=== PATIENT | male | born 1940 | race Caucasian/White ===

== ENCOUNTER 2023-07-10 12:22 | Inpatient (IN) ==
--- NOTE | 2023-07-10 12:38 | ED.PDOC ---
General ED Provider: Dr. GÓMEZ VALDEZ MD Chief Complaint: Nausea/Vomiting Stated Complaint: nausea and vomiting Time Seen by Provider: 07/10/23 12:31 Information Source: Patient Nursing and Triage Documentation Reviewed and Agree: Yes GI Complaint Exam Vomiting/Diarrhea Complaint/Exam Onset/Duration: this morning Symptoms Are: Still present Initial Severity: Moderate Current Severity: Moderate Character of Vomiting: Reports Bilious Aggravating: Reports Food Alleviating: Reports Medications Associated Signs and Symptoms: Denies Fever or Abdominal pain Review of Systems Review Of Systems Constitutional: Reports No symptoms All Other Systems: Reviewed and Negative [facility] Medical History 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 without an etelvina pectoris (ICD-10) Cerebral infarction I63.9 - Cerebral infarction, unspecified (ICD-10) Cognitive communication deficit R41.841 - Cognitive communication deficit (ICD-10) COPD (chronic obstructive pulmonary disease) J44.9 - Chronic obstructive pulmonary disease, unspecified (ICD-10) Dementia F03.90 - Unspecified dementia, unspecified severity, without behavioral disturbance, psychotic disturbance, mood disturbance, and anxiety (ICD-10) Depression F32.A - Depression, unspecified (ICD-10) GERD without esophagitis K21.9 - Gastro-esophageal reflux disease without esophagitis (ICD-10) Hyperlipidemia E78.5 - Hyperlipidemia, unspecified (ICD-10) Hypertension I10 - Essential (primary) hypertension (ICD-10) Personal history of other venous thrombosis and embolism Z86.718 - Personal history of other venous thrombosis and embolism (ICD-10) TIA (transient ischemic attack) G45.9 - Transient cerebral ischemic attack, unspecified (ICD-10) Type 2 diabetes mellitus E11.9 - Type 2 diabetes mellitus without complications (ICD-10) Vertigo R42 - Dizziness and giddiness (ICD-10) Wedge compression fracture of t11-T12 vertebra, subsequent encounter for fracture with routine healing S22.080D - Wedge compression fracture of T11-T12 vertebra, subsequent encounter for fracture with routine healing (ICD-10) Social History (Updated 07/10/23 @ 18:17 by SHARIFA TIPTON RN) Alcohol intake: unknown detention: Yes ([place]) Physical Exam Physical Exam Appearance: Reports Well-appearing Ill-appearing: None Pain Distress: None Eyes: Reports ROSAS ENT: Reports Ears normal and Nose normal Neck: Supple Respiratory: Reports Airway patent, Breath sounds clear and Breath sounds equal Cardiovascular: Reports RRR, Pulses normal, No rub and No murmur GI/: Reports Soft, No masses, Bowel sounds normal and Tender (mild epigastric) Musculoskeletal: Reports Normal strength and ROM intact Skin: Reports Warm and Normal color Neurological: Reports Sensation intact and Motor intact Psychiatric: Reports Affect appropriate Interpretation EKG Interpretation EKG Interpretation By: ED Physician Time of EKG #1: 12:43 Rate: Tachy Rhythm: Sinus Ectopy: None Talent: NL ST Segment: Normal Interpretation: possible old anterior infarction, no acute ST changes Critical Care Note Critical Care Note Total Critical Care Time (mins): 0 Course Course 07/10/23 12:50 07/10/23 12:50 Orders, Labs, Meds: Lab Review 07/10/23 07/10/23 07/10/23 12:50 14:12 14:30 WBC 13.97 H RBC 5.14 Hgb 15.2 Hct 46.2 MCV 89.9 MCH 29.6 MCHC 32.9 RDW Coeff of Meryl 12.1 Plt Count 171 Immature Gran % (Auto) 1.0 Neut % (Auto) 88.1 H Lymph % (Auto) 4.7 L [place] % (Auto) 6.0 Eos % (Auto) 0.1 Baso % (Auto) 0.1 Neut # (Auto) 12.3 H Lymph # (Auto) 0.7 [place] # (Auto) 0.8 Eos # (Auto) 0.0 Baso # (Auto) 0.0 Immature Gran # (Auto) 0.1 Puncture Site Base Excess O2 Saturation ABG pH ABG pCO2 ABG pO2 ABG HCO3 ABG Total CO2 Antony Test Hemoglobin Oxyhemoglobin Carboxyhemoglobin Total Hemoglobin Sodium 132.9 L Potassium 4.53 Chloride 98.8 Carbon Dioxide 25.8 Anion Gap 12.83 BUN 12.9 Creatinine 1.09 Estimated GFR (MDRD) 65.00 BUN/Creatinine Ratio 11.83 Glucose 173.3 H Lactic Acid 2.04 Calcium 8.15 L Total Bilirubin 2.22 H AST 140.6 H ALT 162.5 H Alkaline Phosphatase 126.0 H Troponin I 0.016 Total Protein 6.40 Albumin 3.35 L Globulin 3.05 Albumin/Globulin Ratio 1.09 Lipase 166.4 Urine Color Dark yellow Urine Clarity Clear Urine pH 5.5 Ur Specific [place] >=1.030 Urine Protein 2+ H Urine Glucose (UA) Negative Urine Ketones 1+ H Urine Blood Trace-intact H Urine Nitrite Negative Urine Bilirubin 1+ H Urine Urobilinogen 2.0 H Ur Leukocyte Esterase Negative Urine Microscopic RBC 20-30 Ur Squamous Epith Cells Not Reportable Hyaline Casts 30-50 Urine Mucus 3+ SARS CoV-2 RNA Rapid TY 07/10/23 07/10/23 14:40 14:50 WBC RBC Hgb Hct MCV MCH MCHC RDW Coeff of Meryl Plt Count Immature Gran % (Auto) Neut % (Auto) Lymph % (Auto) [place] % (Auto) Eos % (Auto) Baso % (Auto) Neut # (Auto) Lymph # (Auto) [place] # (Auto) Eos # (Auto) Baso # (Auto) Immature Gran # (Auto) Puncture Site [place] Base Excess -3.7 L O2 Saturation 93.3 L ABG pH 7.43 ABG pCO2 31.0 L ABG pO2 66.0 L ABG HCO3 20.6 L ABG Total CO2 21.6 Antony Test Pos Hemoglobin 1.2 Oxyhemoglobin 91.6 L Carboxyhemoglobin 2.0 H Total Hemoglobin 16.2 Sodium Potassium Chloride Carbon Dioxide Anion Gap BUN Creatinine Estimated GFR (MDRD) BUN/Creatinine Ratio Glucose Lactic Acid Calcium Total Bilirubin AST ALT Alkaline Phosphatase Troponin I Total Protein Albumin Globulin Albumin/Globulin Ratio Lipase Urine Color Urine Clarity Urine pH Ur Specific [place] Urine Protein Urine Glucose (UA) Urine Ketones Urine Blood Urine Nitrite Urine Bilirubin Urine Urobilinogen Ur Leukocyte Esterase Urine Microscopic RBC Ur Squamous Epith Cells Hyaline Casts Urine Mucus SARS CoV-2 RNA Rapid TY Negative Orders Category Date Time Status ADMIT PATIENT INPATIENT .TO [facility] (MONITORED BED) ADMISSION 07/10/23 14:48 Active ABG DRAW REQUEST Stat CARDIO 07/10/23 14:47 Completed EKG-(ED ONLY) Stat CARDIO 07/10/23 12:32 Completed IV ACCESS ONCE CARE 07/10/23 12:32 Active NPO REMINDER: IMAGING ONCE CARE 07/10/23 14:02 Completed TELEMETRY MONITORING TELE CARE 07/10/23 14:49 Active Monitor [ED CARROTER APPLIED] .ONCE EMERGENCY 07/10/23 12:32 Active ABG COOX Stat LAB 07/10/23 14:50 Completed BLOOD CULTURE Stat LAB 07/10/23 14:22 Received CBC W/ AUTO DIFF Stat LAB 07/10/23 12:50 Completed CMP [COMPREHENSIVE METABOLIC PANEL] Stat LAB 07/10/23 12:50 Completed COVID [SARS COV-2 RNA RAPID TY] Stat LAB 07/10/23 14:40 Completed LACTIC ACID Stat LAB 07/10/23 14:12 Completed LIPASE Stat LAB 07/10/23 12:50 Completed TROPONIN I Stat LAB 07/10/23 12:50 Completed URINALYSIS C & S IF INDICATED Stat LAB 07/10/23 14:30 Completed Piperacillin Sodium/Tazobactam [Zosyn 3.375 gm] 3.375 Meds 07/10/23 14:45 Discontinued gm 0.9 % Sodium Chloride [Sodium Chloride 100Ml] 100 ml IV ONCE Vancomycin/Water For Inj (Peg) [Vancomycin 1 Gram/200 Meds 07/10/23 14:46 Discontinued ml Premix] 1 gm in [address] ABDOMEN/PELVIS WO CONTRAST Stat RADS 07/10/23 12:32 Completed CXR [CHEST, 1V AP ONLY] Stat RADS 07/10/23 14:00 Completed ULTRASOUND ABDOMEN, RT. UPPER QUAD [U/S ABDOMEN RT RADS 07/10/23 14:02 Completed UPPER QUAD] Stat Medications Generic Name Dose Route Start Last Admin Trade Name Freq PRN Reason Stop Dose Admin Amlodipine Besylate 5 mg 07/11/23 09:00 Amlodipine Besylate 5 Mg Tablet PO DAILY [facility] Aspirin 81 mg 07/11/23 07:30 Aspirin 81 Mg Tablet. PO 0730 [facility] Bisacodyl 5 mg 07/10/23 16:46 Bisacodyl 5 Mg Tablet. PO DAILY PRN Constipation Citalopram Hydrobromide 20 mg 07/10/23 21:00 Citalopram Hydrobromide 20 Mg Tablet PO BEDTIME [facility] Enoxaparin Sodium 30 mg 07/11/23 09:00 Enoxaparin Sodium 30 Mg/0.3 Ml Syr SUBCUT DAILY [facility] Famotidine 20 mg 07/10/23 17:00 07/10/23 17:48 Famotidine 20 Mg Tablet PO 20 mg 0600,1700 [facility] Administration Sodium Chloride 1,000 mls @ 75 mls/hr 07/10/23 16:00 07/10/23 17:50 Sodium Chloride IV 75 mls/hr .[id number] [facility] Administration Levofloxacin/Dextrose 750 mg in 150 mls @ 100 mls/hr 07/11/23 09:00 Levaquin 750 Mg/150 Ml D5w IV 07/14/23 08:59 DAILY [facility] Lisinopril 20 mg 07/11/23 09:00 Lisinopril 10 Mg Tablet PO DAILY [facility] Methocarbamol 750 mg 07/10/23 16:47 Methocarbamol 500 Mg Tablet PO Q8H PRN Spasms Metoclopramide HCl 5 mg 07/10/23 16:20 Metoclopramide Hcl 10 Mg/2 Ml IVP Q6H PRN Nausea / Vomiting Ondansetron HCl 4 mg 07/10/23 16:20 Ondansetron Hcl/Pf 4 Mg/2 Ml Sdv IVP Q6H PRN Nausea / Vomiting Discontinued Medications Generic Name Dose Route Start Last Admin Trade Name Freq PRN Reason Stop Dose Admin Hydralazine HCl 10 mg 07/10/23 16:41 07/10/23 17:48 Hydralazine Hcl 20 Mg/Ml Sdv IVP 07/10/23 16:42 10 mg ONCE ONE Administration Piperacillin Sod/Tazobactam 100 mls @ 200 mls/hr 07/10/23 14:45 07/10/23 15:03 Sod 3.375 gm/ Sodium Chloride IV 07/10/23 15:14 200 mls/hr ONCE ONE Administration VANCOMYCIN/WATER FOR INJ (PEG) 1 gm in 200 mls @ 200 mls/hr 07/10/23 14:46 07/10/23 15:24 Vancomycin 1 Gram/200 Ml Premix IV 07/10/23 15:45 200 mls/hr ONCE ONE Administration Vital Signs: Temp Pulse Resp BP Pulse Ox 07/10/23 12:23 98.1 F 95 17 118/66 96 82 years old male with a past medical history of hypertension, anxiety, vertebral fracture, dyslipidemia [facility]. Patient has been having nausea and vomiting since this morning who who was sent for evaluation he was given Zofran by the paramedics on route which improved his vomiting. CT scan of the abdomen pelvis did not show any acute findings in the abdomen status postcholecystectomy but showed bilateral bibasilar pneumonia more on the right side patient is wearing a breast for the vertebral fracture which be factor in his pneumonia. Patient has leukocytosis WBC 13.9 with a left shift lactic acid was ordered blood cultures obtained patient was ordered vancomycin and Zosyn IV. Spoke with Dr. Sanchez patient's primary care physician and discussed the case with him and he agrees with admitting the patient for IV antibiotics. I spoke with hospitalist Jadiel Gamboa and she agrees with admitting the patient to her services. Discharge Plan Discharge Patient Disposition: ADMITTED INPATIENT Discharge Problem: Vomiting, Nausea, Pneumonia Did you review [place] [employer] for ALL controlled substances?: Not Applicable ED Provider: GÓMEZ VALDEZ Condition: Stable Physician Progress Note: []
[2023-07-10 12:54] LABS: BASOPHILS % (AUTO) 0.1 % (0.0-3.0); EOSINOPHILS % (AUTO) 0.1 % (0.0-7.0); HEMATOCRIT 46.2 % (42.0-52.0); HEMOGLOBIN 15.2 g/dl (14.0-18.0); IMMATURE GRANULOCYTE # (AUTO) 0.1 (0.0-1.0); LYMPHOCYTES # (AUTO) 0.7 K/uL (0.60-3.4); LYMPHOCYTES % (AUTO) 4.7 (10.0-50.0); MEAN CORPUSCULAR HEMOGLOBIN 29.6 pg (27.0-31.0); MEAN CORPUSCULAR HGB CONC 32.9 (31.8-35.4); MEAN CORPUSCULAR VOLUME 89.9 fl (80.0-94.0); MONOCYTES # (AUTO) 0.8 K/uL (0.4-2.0); NEUTROPHILS # (AUTO) 12.3 K/ul (2.0-6.9); NEUTROPHILS % (AUTO) 88.1 % (42.2-75.2); PLATELET COUNT 171 10^3/uL (140-440); RDW COEFFICIENT OF VARIATION 12.1 % (11.6-14.8); RED BLOOD COUNT 5.14 10^6/ul (4.70-6.10); WHITE BLOOD COUNT 13.97 K/ul (4.2-10.2)
[2023-07-10 13:06] LABS: ALANINE AMINOTRANSFERASE 162.5 U/L (0-50); ALBUMIN 3.35 g/dL (3.5-5.0); ASPARTATE AMINO TRANSFERASE 140.6 U/L (17-59); BILIRUBIN,TOTAL 2.22 mg/dL (0.2-1.3); BLOOD UREA NITROGEN 12.9 mg/dL (9-20); CALCIUM 8.15 mg/dL (8.4-10.2); CARBON DIOXIDE 25.8 mmol/L (22-30.0); CHLORIDE 98.8 mmol/L (98-107); CREATININE 1.09 mg/dL (0.60-1.10); GLUCOSE 173.3 mg/dL (74-106); LIPASE 166.4 U/L (23-300); POTASSIUM 4.53 mmol/L (3.5-5.1); SODIUM 132.9 mmol/L (134.5-145); TOTAL PROTEIN 6.4 g/dL (6.3-8.2)
[2023-07-10 13:18] LABS: TROPONIN I 0.016 ng/ml (0.0000-0.120)
--- NOTE | 2023-07-10 13:58 | CT ---
EXAM: CT ABDOMEN WITHOUT CONTRAST. CT PELVIS WITHOUT CONTRAST. HISTORY: Abdominal pain, nausea and vomiting. COMPARISON: None. TECHNIQUE: Multiple axial images of the abdomen and pelvis were obtained without intravenous contras t. Images were reformatted in the sagittal and coronal plane. FINDINGS: Please note that evaluation of the abdominal and pelvic structures is limited due to lack of intravenous contrast. Bronchial thickening and small nodular densities noted in the right middle and lower lobes. There is some nodular consolidation within the medial right lower lobe. Mild subpleural nodular consolidatio n posterior left lower lobe as well. Degenerative changes present throughout the spine. Mild compression deformity T12 vertebral body wit h oblique fracture line on sagittal image 65. Sclerosis on both sides of the fracture line. No retr opulsion. Mild paravertebral edema present. No visible epidural hematoma. Gallbladder absent. Liver, pancreas, spleen are normal. A 1.8 cm right adrenal nodule with macrosco pic fat density and internal Hounsfield unit measurement of -3 noted on axial image 39. There is flu id density thickening of the left adrenal gland example axial image 47 There are multiple fluid density masses in both kidneys measuring up to 4.6 cm on the left and 2.6 cm on the right. No calcified renal stones or hydronephrosis detected. Small hiatal hernia present. There is no bowel obstruction or acute inflammation. There has been pr ior appendectomy. Staple line at the rectosigmoid junction. Mild diverticulosis noted. Bladder normal. Prostate mildly enlarged with some mass effect on the base of no bladder no free flu id or free air detected. Atherosclerotic calcifications present without aneurysm. IMPRESSION: 1. Bibasilar pneumonia, greater on the right. Follow-up in 3 months recommended for reassessment. 2. Subacute appearing T12 compression fracture. No retropulsion. Correlate with MRI if further rey luation is needed. 3. Small hiatal hernia. 4. Previous rectosigmoid surgery. Mild diverticulosis. 5. Bilateral renal cysts. 6. Atherosclerosis. 7. Prostatic enlargement. 8. Benign adrenal adenomas. All CT scans are performed using dose optimization techniques as appropriate to the performed exam an d include at least one of the following: Automated exposure control, adjustment of the mA and/or kV according t o size, and the use of iterative reconstruction technique.
--- NOTE | 2023-07-10 14:28 | DI ---
EXAM: CHEST RADIOGRAPH (1 VIEW) TECHNIQUE: Frontal Chest Radiograph. HISTORY: Pneumonia COMPARISON: Correlation with CT abdomen pelvis from earlier the same day. FINDINGS: Lines, Tubes, Devices: None Lungs and Pleura: Subtle hazy densities in the lower lungs. The upper lungs are grossly clear. No p leural effusion or pneumothorax. Cardiac silhouette: Normal. Bones: No acute abnormality. IMPRESSION: Subtle hazy densities in the lower lungs. The upper lungs are clear.
[2023-07-10 14:43] LABS: BILIRUBIN,URINE 1+ (NEGATIVE); CLARITY,URINE Clear (CLEAR); GLUCOSE, URINE (UA) Negative (NEGATIVE); KETONES,URINE 1+ (NEGATIVE); LEUKOCYTE ESTERASE ,URINE Negative (NEGATIVE); NITRITE,URINE Negative (NEGATIVE); PH,URINE 5.5 (5-9); PROTEIN,URINE 2+ (NEGATIVE); URINE, BLOOD Trace-intact (NEGATIVE)
[2023-07-10] MEDS ORDERED: ZOSYN 3.375 GM 3.375 GM in SODIUM CHLORIDE 100ML 100 ML IV ONE (14:45)
[2023-07-10] MEDS ORDERED: VANCOMYCIN 1 GRAM/200 ML PREMIX 1 GM/200 ML BAG IV ONE (14:46)
[2023-07-10 14:54] LABS: COLOR,URINE DARK YELLOW (YELLOW)
[2023-07-10 14:56] LABS: HYALINE CASTS, URINE 30-50 (NOT PRESENT); URINE RBC, MICROSCOPIC 20-30 (0-2)
[2023-07-10 14:57] LABS: MUCUS,URINE 3+ (NOT PRESENT)
[2023-07-10 15:01] LABS: SARS COV-2 RNA RAPID NAAT NEGATIVE (NEGATIVE)
[2023-07-10 15:19] LABS: ABG O2 HGB 91.6 % (95-100); ABG PH 7.43 (7.35-7.45); BEecf -3.7 (-2.0-3.0); HCO3 20.6 (21-28); MetHb 1.2 (0-1.5); TCO2 21.6 (19-24); sO2 93.3 % (94-98); tHb 16.2 g/dl (11.7-17.4)
--- NOTE | 2023-07-10 15:35 | US ---
EXAM: ULTRASOUND OF THE RIGHT UPPER QUADRANT (LIMITED ABDOMEN) HISTORY: Transaminitis. TECHNIQUE: Sonography of the right upper quadrant was performed. Color Doppler imaging of the portal vein was performed. Images were obtained and stored in a permanent archive. COMPARISON: CT 07/10/2023. FINDINGS: Pancreas: Obscured by overlying structures. Liver: The liver is poorly visualized with significant areas obscured by overlying structures. Mild parenchymal heterogeneity is noted. No focal lesion. - Main portal vein: Normal hepatopetal flow. Biliary: Previous cholecystectomy. No biliary ductal dilatation. -Common bile duct measures 3.3 mm. Right Kidney: No mass, calculus, or hydronephrosis. Other: No ascites. IMPRESSION: Previous cholecystectomy without biliary ductal dilatation. The liver is poorly visualized and partially obscured due to overlying structures. Mild parenchymal heterogeneity without focal lesion. The pancreas is also obscured and not evaluated.
[2023-07-10] MEDS ORDERED: ZOFRAN 4 MG/2 ML ONE (16:12)
[2023-07-10] MEDS ORDERED: REGLAN IVP PRN (16:20)
[2023-07-10] MEDS ORDERED: ZOFRAN 4 MG/2 ML IVP PRN (16:20)
--- NOTE | 2023-07-10 16:27 | PCM ---
Date of Service Date Seen by Provider: 07/10/23 Time Seen by Provider: 16:15 Admit Day/Time Admission Date: 07/10/23 Admission Time: 16:10 Reason for Admission Chief Complaint: PNEUMONIA Hospital Provider Hospital Provider: MARILYN SMITH, [facility] [place] Physician Primary Care Physician: ASHLEY SANCHEZ MD History of Present Illness History of Present Illness: 82 yo male presented to the ER from local [facility] with nausea and vomiting that started today. He was given zofran by the ambulance crew and has not vomited since. Work-up revealed bilateral pneumonia. He was then admitted to the medical floor. Patient has pmh of dementia and is unable to provide ROS and HPI Case Discussed With Case Discussed With: Patient's case was discussed with the ER Physicians, Dr. Delgado. 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 (ICD-10) Cerebral infarction I63.9 - Cerebral infarction, unspecified (ICD-10) Cognitive communication deficit R41.841 - Cognitive communication deficit (ICD-10) COPD (chronic obstructive pulmonary disease) J44.9 - Chronic obstructive pulmonary disease, unspecified (ICD-10) Dementia F03.90 - Unspecified dementia, unspecified severity, without behavioral disturbance, psychotic disturbance, mood disturbance, and anxiety (ICD-10) Depression F32.A - Depression, unspecified (ICD-10) GERD without esophagitis K21.9 - Gastro-esophageal reflux disease without esophagitis (ICD-10) Hyperlipidemia E78.5 - Hyperlipidemia, unspecified (ICD-10) Hypertension I10 - Essential (primary) hypertension (ICD-10) Personal history of other venous thrombosis and embolism Z86.718 - Personal history of other venous thrombosis and embolism (ICD-10) TIA (transient ischemic attack) G45.9 - Transient cerebral ischemic attack, unspecified (ICD-10) Type 2 diabetes mellitus E11.9 - Type 2 diabetes mellitus without complications (ICD-10) Vertigo R42 - Dizziness and giddiness (ICD-10) Wedge compression fracture of t11-T12 vertebra, subsequent encounter for fracture with routine healing S22.080D - Wedge compression fracture of T11-T12 vertebra, subsequent encounter for fracture with routine healing (ICD-10) Allergies Allergies Allergy/AdvReac Type Severity Reaction Status Date / Time morphine AdvReac Verified 07/10/23 12:30 Current Medications Home Medications amlodipine 5 mg tablet 5 mg PO ONCE 07/10/23 [History Confirmed 07/10/23 Last Taken Unknown] aspirin 81 mg tablet,delayed release (Adult Aspirin Regimen) 81 mg PO DAILY 07/10/23 [History Confirmed 07/10/23 Last Taken Unknown] bisacodyl 5 mg tablet 5 mg PO DAILY 07/10/23 [History Confirmed 07/10/23 Last Taken Unknown] citalopram 20 mg tablet 20 mg PO ONCE 07/10/23 [History Confirmed 07/10/23 Last Taken Unknown] famotidine 20 mg tablet 20 mg PO BID 07/10/23 [History Confirmed 07/10/23 Last Taken Unknown] lisinopril 20 mg tablet 20 mg PO ONCE 07/10/23 [History Confirmed 07/10/23 Last Taken Unknown] methocarbamol 750 mg tablet 750 mg PO Q8H 07/10/23 [History Confirmed 07/10/23 Last Taken Unknown] rosuvastatin 10 mg tablet 10 mg PO ONCE 07/10/23 [History Confirmed 07/10/23 Last Taken Unknown] Home Amlodipine Besylate (Amlodipine Besylate 5 Mg Tablet) 5 mg PO DAILY PORFIRIO Aspirin (Aspirin 81 Mg Tablet.) 81 mg PO 0730 PORFIRIO Bisacodyl (Bisacodyl 5 Mg Tablet.) 5 mg PO DAILY PRN PRN Reason: Constipation Citalopram Hydrobromide (Citalopram Hydrobromide 20 Mg Tablet) 20 mg PO BEDTIME PORFIRIO Enoxaparin Sodium (Enoxaparin Sodium 30 Mg/0.3 Ml Syr) 30 mg SUBCUT DAILY PORFIRIO Famotidine (Famotidine 20 Mg Tablet) 20 mg PO 0600,1700 PORFIRIO Sodium Chloride (Sodium Chloride) 1,000 mls @ 75 mls/hr IV .[id number] PORFIRIO Levofloxacin/Dextrose (Levaquin 750 Mg/150 Ml D5w) 750 mg in 150 mls @ 100 mls/hr IV DAILY PORFIRIO Stop: 07/14/23 08:59 Lisinopril (Lisinopril 10 Mg Tablet) 20 mg PO DAILY PORFIRIO Methocarbamol (Methocarbamol 500 Mg Tablet) 750 mg PO Q8H PRN PRN Reason: Spasms Metoclopramide HCl (Metoclopramide Hcl 10 Mg/2 Ml) 5 mg IVP Q6H PRN PRN Reason: Nausea / Vomiting Ondansetron HCl (Ondansetron Hcl/Pf 4 Mg/2 Ml Sdv) 4 mg IVP Q6H PRN PRN Reason: Nausea / Vomiting Discontinued Medications Hydralazine HCl (Hydralazine Hcl 20 Mg/Ml Sdv) 10 mg IVP ONCE ONE Stop: 07/10/23 16:42 Piperacillin Sod/Tazobactam (Sod 3.375 gm/ Sodium Chloride) 100 mls @ 200 mls/hr IV ONCE ONE Stop: 07/10/23 15:14 Last Admin: 07/10/23 15:03 Dose: 200 mls/hr VANCOMYCIN/WATER FOR INJ (PEG) (Vancomycin 1 Gram/200 Ml Premix) 1 gm in 200 mls @ 200 mls/hr IV ONCE ONE Stop: 07/10/23 15:45 Last Admin: 07/10/23 15:24 Dose: 200 mls/hr Physical examination Most Recent Vital Signs: Most Recent Vital Signs Temperature 98.1 F 07/10/23 12:23 Temperature Source Infrared 07/10/23 12:23 Pulse Rate 95 07/10/23 12:23 Respiratory Rate 17 07/10/23 12:23 Blood Pressure 118/66 07/10/23 12:23 O2 Sat by Pulse Oximetry 96 07/10/23 12:23 Height 6 ft 07/10/23 12:23 Weight 187 lb 13.341 oz 07/10/23 12:23 Appearance: Positive No Apparent Distress and Ill-Appearing Skin: Positive Warm and Other (healing skin tear to left elbow, no erythema swelling or discharge; dressing on head - erythematous where tape was present, scabbed over 1mm area to center of scalp, healing, no drainage or erythema surrounding) HEENT: Positive Normocephalic, Atraumatic and PERRLA Neck: Positive Midline Trachea Chest/Lungs: Positive Symmetrical With Equal Breath Sounds, Good Air Movement all 4 Lung Schuler and Other (diminished, course ) Heart: Positive RRR, Pulses Normal and Murmur GI/: Positive Soft, Nontender, Bowel Sounds Normal, No Distention and No Organomegaly Musculoskeletal: Positive Not Examined Extremities: Positive Edema (+1-2 to RLE) Neurological: Positive Sensation Intact, Motor intact, Alert and Disorinted Labs This Visit Labs This Visit: Labs This Visit 07/10/23 07/10/23 07/10/23 12:50 14:12 14:30 WBC 13.97 H RBC 5.14 Hgb 15.2 Hct 46.2 MCV 89.9 MCH 29.6 MCHC 32.9 RDW Coeff of Meryl 12.1 Plt Count 171 Immature Gran % (Auto) 1.0 Neut % (Auto) 88.1 H Lymph % (Auto) 4.7 L [place] % (Auto) 6.0 Eos % (Auto) 0.1 Baso % (Auto) 0.1 Neut # (Auto) 12.3 H Lymph # (Auto) 0.7 [place] # (Auto) 0.8 Eos # (Auto) 0.0 Baso # (Auto) 0.0 Immature Gran # (Auto) 0.1 Puncture Site Base Excess O2 Saturation ABG pH ABG pCO2 ABG pO2 ABG HCO3 ABG Total CO2 Antony Test Hemoglobin Oxyhemoglobin Carboxyhemoglobin Total Hemoglobin Sodium 132.9 L Potassium 4.53 Chloride 98.8 Carbon Dioxide 25.8 Anion Gap 12.83 BUN 12.9 Creatinine 1.09 Estimated GFR (MDRD) 65.00 BUN/Creatinine Ratio 11.83 Glucose 173.3 H Lactic Acid 2.04 Calcium 8.15 L Total Bilirubin 2.22 H AST 140.6 H ALT 162.5 H Alkaline Phosphatase 126.0 H Troponin I 0.016 Total Protein 6.40 Albumin 3.35 L Globulin 3.05 Albumin/Globulin Ratio 1.09 Lipase 166.4 Urine Color Dark yellow Urine Clarity Clear Urine pH 5.5 Ur Specific [place] >=1.030 Urine Protein 2+ H Urine Glucose (UA) Negative Urine Ketones 1+ H Urine Blood Trace-intact H Urine Nitrite Negative Urine Bilirubin 1+ H Urine Urobilinogen 2.0 H Ur Leukocyte Esterase Negative Urine Microscopic RBC 20-30 Ur Squamous Epith Cells Not Reportable Hyaline Casts 30-50 Urine Mucus 3+ SARS CoV-2 RNA Rapid TY 07/10/23 07/10/23 14:40 14:50 WBC RBC Hgb Hct MCV MCH MCHC RDW Coeff of Meryl Plt Count Immature Gran % (Auto) Neut % (Auto) Lymph % (Auto) [place] % (Auto) Eos % (Auto) Baso % (Auto) Neut # (Auto) Lymph # (Auto) [place] # (Auto) Eos # (Auto) Baso # (Auto) Immature Gran # (Auto) Puncture Site [place] Excess -3.7 L O2 Saturation 93.3 L ABG pH 7.43 ABG pCO2 31.0 L ABG pO2 66.0 L ABG HCO3 20.6 L ABG Total CO2 21.6 Antony Test Pos Hemoglobin 1.2 Oxyhemoglobin 91.6 L Carboxyhemoglobin 2.0 H Total Hemoglobin 16.2 Sodium Potassium Chloride Carbon Dioxide Anion Gap BUN Creatinine Estimated GFR (MDRD) BUN/Creatinine Ratio Glucose Lactic Acid Calcium Total Bilirubin AST ALT Alkaline Phosphatase Troponin I Total Protein Albumin Globulin Albumin/Globulin Ratio Lipase Urine Color Urine Clarity Urine pH Ur Specific [place] Urine Protein Urine Glucose (UA) Urine Ketones Urine Blood Urine Nitrite Urine Bilirubin Urine Urobilinogen Ur Leukocyte Esterase Urine Microscopic RBC Ur Squamous Epith Cells Hyaline Casts Urine Mucus SARS CoV-2 RNA Rapid YT Negative Imaging Imaging: EXAM: CT ABDOMEN WITHOUT CONTRAST. CT PELVIS WITHOUT CONTRAST. IMPRESSION: 1. Bibasilar pneumonia, greater on the right. Follow-up in 3 months recommended for reassessment. 2. Subacute appearing T12 compression fracture. No retropulsion. Correlate with MRI if further evaluation is needed. 3. Small hiatal hernia. 4. Previous rectosigmoid surgery. Mild diverticulosis. 5. Bilateral renal cysts. 6. Atherosclerosis. 7. Prostatic enlargement. 8. Benign adrenal adenomas. EXAM: CHEST RADIOGRAPH (1 VIEW) IMPRESSION: Subtle hazy densities in the lower lungs. The upper lungs are clear. EXAM: ULTRASOUND OF THE RIGHT UPPER QUADRANT (LIMITED ABDOMEN) IMPRESSION: Previous cholecystectomy without biliary ductal dilatation. The liver is poorly visualized and partially obscured due to overlying structures. Mild parenchymal heterogeneity without focal lesion. The pancreas is also obscured and not evaluated. Review Statement Review Statement: I have independently reviewed and interpreted the labs/EKGs/imaging that were ordered by the ER provider. I have reviewed all outside records that are available currently in our EMR including imaging/notes/labs from previous visits. Plan Plan: 1. Community Acquired Pneumonia - PSI IV; levaquin IVPB daily, blood cultures pending, RT consult 2. Acute Transaminitis- likely due to #1, liver US negative, checking hepatitis panel, holding statins, monitor 3. Intractable N/V - no obvious source, CT negative, zofran and reglan prn, clear liquid diet - advance as tolerated 4. Hyponatremia - mild, NS@75mL/hr, repeat labs in am 5. Hypertension - chronic, uncontrolled at this time - likely due to inability to take PO meds from vomiting, IV dose hydralazine ordered, continue home medications 6. Hyperlipidemia - chronic, holding home medication due to elevated LFTs DVT Prophylaxis: Lovenox Time Spent: Greater than 80 minutes spent with patient, 50% of the time spent with this patient was devoted to counseling and coordination of care. [facility] minutes spent discussing advance care planning. Disposition: Admit to: Med/Surg Inpatient DNR Discussed Plan of Care with Dr. Jhonny Sanchez. Medications Medication Orders: Medications Ordered Category Date Time Status Levofloxacin/D5w [Levaquin 750 mg/150 ml D5w] Meds 07/11/23 09:00 Active 750 mg in 150 ml IV DAILY Metoclopramide HCl [Reglan] Meds 07/10/23 16:20 Ordered 5 mg IVP Q6H PRN Ondansetron HCl/Pf [Zofran 4 mg/2 ml] Meds 07/10/23 16:20 Ordered 4 mg IVP Q6H PRN Sodium Chloride 0.9% [Sodium Chloride] 1,000 ml Meds 07/10/23 16:00 Active IV 75 mls/hr
[2023-07-10] MEDS ORDERED: NON-FORMULARY MEDICATION (Methocarbamol 750 mg tablet) PO PRN (16:37)
[2023-07-10] MEDS ORDERED: HYDRALAZINE HCL IVP ONE (16:41)
[2023-07-10] MEDS ORDERED: DULCOLAX PO PRN (16:46)
[2023-07-10] MEDS ORDERED: ROBAXIN PO PRN (16:47)
[2023-07-10 17:40] VITALS: BMI 25.2
[2023-07-10] MEDS: PEPCID PO SCH (17:48)
[2023-07-10] MEDS: SODIUM CHLORIDE 1,000 ML IV SCH (17:50)
[2023-07-10] MEDS: CELEXA PO SCH (20:23)
[2023-07-11] MEDS: SODIUM CHLORIDE 1,000 ML IV SCH ×2 (05:11→18:20)
[2023-07-11] MEDS: PEPCID PO SCH ×2 (05:11→16:16)
[2023-07-11 05:12] LABS: BASOPHILS % (AUTO) 0.2 % (0.0-3.0); EOSINOPHILS % (AUTO) 0.2 % (0.0-7.0); HEMATOCRIT 37.7 % (42.0-52.0); HEMOGLOBIN 12.6 g/dl (14.0-18.0); IMMATURE GRANULOCYTE # (AUTO) 0.1 (0.0-1.0); IMMATURE GRANULOCYTE % (AUTO) 0.6 % (0.0-5.0); LYMPHOCYTES # (AUTO) 1.6 K/uL (0.60-3.4); LYMPHOCYTES % (AUTO) 13.1 (10.0-50.0); MEAN CORPUSCULAR HEMOGLOBIN 30.1 pg (27.0-31.0); MEAN CORPUSCULAR HGB CONC 33.4 (31.8-35.4); MONOCYTES # (AUTO) 0.7 K/uL (0.4-2.0); MONOCYTES % (AUTO) 6.1 (0-10); NEUTROPHILS # (AUTO) 9.5 K/ul (2.0-6.9); NEUTROPHILS % (AUTO) 79.8 % (42.2-75.2); PLATELET COUNT 147 10^3/uL (140-440); RDW COEFFICIENT OF VARIATION 12.5 % (11.6-14.8); RED BLOOD COUNT 4.19 10^6/ul (4.70-6.10); WHITE BLOOD COUNT 11.89 K/ul (4.2-10.2)
[2023-07-11 05:29] LABS: ALANINE AMINOTRANSFERASE 120.8 U/L (0-50); ALBUMIN 2.56 g/dL (3.5-5.0); ALKALINE PHOSPHATASE 88.8 U/L (56-119); ASPARTATE AMINO TRANSFERASE 74.5 U/L (17-59); BILIRUBIN,TOTAL 1.53 mg/dL (0.2-1.3); BLOOD UREA NITROGEN 15.5 mg/dL (9-20); CALCIUM 8.19 mg/dL (8.4-10.2); CARBON DIOXIDE 27.1 mmol/L (22-30.0); CHLORIDE 102.1 mmol/L (98-107); CREATININE 0.92 mg/dL (0.60-1.10); GLUCOSE 109.9 mg/dL (74-106); POTASSIUM 4.28 mmol/L (3.5-5.1); SODIUM 133.6 mmol/L (134.5-145); TOTAL PROTEIN 5.2 g/dL (6.3-8.2)
[2023-07-11] MEDS: ASPIRIN EC PO SCH (08:07)
[2023-07-11] MEDS: ZESTRIL PO SCH (08:07)
[2023-07-11] MEDS: NORVASC PO SCH (08:08)
[2023-07-11] MEDS: LOVENOX SUBCUT SCH (08:08)
[2023-07-11] MEDS: LEVAQUIN 750 MG/150 ML D5W 750 MG/150 ML BAG IV SCH (08:37)
--- NOTE | 2023-07-11 09:52 | PCM.PROG ---
Date/Time Seen Date Seen by Provider: 07/11/23 Time Seen by Provider: 08:30 Provider [facility] Chief Complaint Chief Complaint: PNEUMONIA Subjective Subjective: No events overnight. No additional episodes of vomiting. No fever. Objective Appearance: Positive No Apparent Distress Chest/Lungs: Positive Symmetrical With Equal Breath Sounds, Clear to Auscultation Bilaterally and Good Air Movement all 4 Lung Schuler Heart: Positive RRR and Pulses Normal GI/: Positive Soft, Nontender, Bowel Sounds Normal and No Distention Musculoskeletal: Positive Not Examined Neurological: Positive Sensation Intact, Motor intact, Reflexes Intact, Alert, Disorinted and Muscle Strength 5/5 in Upper and Lower Extremities Bilaterally Vital Signs Vital Signs: Vital Signs: Last 24 Hours 07/10/23 12:23 07/10/23 16:18 07/10/23 16:18 Temperature 98.1 F 99.2 F Temperature Source Infrared Oral Pulse Rate 95 117 H Pulse Rate [Apical] Respiratory Rate 17 16 16 Blood Pressure 118/66 Blood Pressure Mean Blood Pressure Right Arm 188/102 Blood Pressure Location Blood Pressure Position Supine O2 Sat by Pulse Oximetry 96 97 Oxygen Delivery Method Room Air Room Air Height 6 ft 5 ft 11 in Weight 187 lb 13.341 oz 181 lb 1 oz Telemetry Type Telemetry Monitoring Telemetry Heart Rate EKG AR Interval EKG QRS Interval Telemetry Strip Reading 07/10/23 19:00 07/10/23 22:00 07/10/23 20:00 Temperature 97.9 F Temperature Source Oral Pulse Rate 84 Pulse Rate [Apical] 76 Respiratory Rate 16 16 Blood Pressure 122/69 Blood Pressure Mean 86 Blood Pressure Right Arm Blood Pressure Location Right Arm Blood Pressure Position Supine O2 Sat by Pulse Oximetry 93 L Oxygen Delivery Method Room Air Room Air Height Weight Telemetry Type Remote Telemetry Telemetry Monitoring Started Telemetry Heart Rate 97 EKG AR Interval 0.19 EKG QRS Interval 0.04 L Telemetry Strip Reading SR 07/11/23 01:00 07/11/23 05:08 07/11/23 07:00 Temperature 97.7 F Temperature Source Oral Pulse Rate 76 Pulse Rate [Apical] Respiratory Rate 16 Blood Pressure 131/74 Blood Pressure Mean 93 Blood Pressure Right Arm Blood Pressure Location Right Arm Blood Pressure Position Sitting O2 Sat by Pulse Oximetry 97 Oxygen Delivery Method Room Air Height Weight Telemetry Type Remote Telemetry Remote Telemetry Telemetry Monitoring Continues Continues Telemetry Heart Rate 72 79 EKG AR Interval 0.19 0.16 EKG QRS Interval 0.06 0.08 Telemetry Strip Reading SR NSR 07/11/23 08:00 Temperature Temperature Source Pulse Rate Pulse Rate [Apical] 88 Respiratory Rate 20 Blood Pressure Blood Pressure Mean Blood Pressure Right Arm Blood Pressure Location Blood Pressure Position O2 Sat by Pulse Oximetry Oxygen Delivery Method Room Air Height Weight Telemetry Type Telemetry Monitoring Telemetry Heart Rate EKG AR Interval EKG QRS Interval Telemetry Strip Reading Lab Results Lab Results: Lab Results: Last 24 Hours 07/11/23 07/10/23 07/10/23 04:50 14:50 14:40 WBC 11.89 H RBC 4.19 L Hgb 12.6 L Hct 37.7 L D MCV 90.0 MCH 30.1 MCHC 33.4 RDW Coeff of Meryl 12.5 Plt Count 147 Immature Gran % (Auto) 0.6 Neut % (Auto) 79.8 H Lymph % (Auto) 13.1 [place] % (Auto) 6.1 Eos % (Auto) 0.2 Baso % (Auto) 0.2 Neut # (Auto) 9.5 H Lymph # (Auto) 1.6 [place] # (Auto) 0.7 Eos # (Auto) 0.0 Baso # (Auto) 0.0 Immature Gran # (Auto) 0.1 Puncture Site [place] Excess -3.7 L O2 Saturation 93.3 L ABG pH 7.43 ABG pCO2 31.0 L ABG pO2 66.0 L ABG HCO3 20.6 L ABG Total CO2 21.6 Antony Test Pos Hemoglobin 1.2 Oxyhemoglobin 91.6 L Carboxyhemoglobin 2.0 H Total Hemoglobin 16.2 Sodium 133.6 L Potassium 4.28 Chloride 102.1 Carbon Dioxide 27.1 Anion Gap 8.68 BUN 15.5 Creatinine 0.92 Estimated GFR (MDRD) 79.00 BUN/Creatinine Ratio 16.84 Glucose 109.9 H D Lactic Acid Calcium 8.19 L Total Bilirubin 1.53 H AST 74.5 H D ALT 120.8 H D Alkaline Phosphatase 88.8 D Troponin I Total Protein 5.20 L Albumin 2.56 L Globulin 2.64 Albumin/Globulin Ratio 0.96 Lipase Urine Color Urine Clarity Urine pH Ur Specific [place] Urine Protein Urine Glucose (UA) Urine Ketones Urine Blood Urine Nitrite Urine Bilirubin Urine Urobilinogen Ur Leukocyte Esterase Urine Microscopic RBC Ur Squamous Epith Cells Hyaline Casts Urine Mucus SARS CoV-2 RNA Rapid TY Negative 07/10/23 07/10/23 07/10/23 14:30 14:12 12:50 WBC 13.97 H RBC 5.14 Hgb 15.2 Hct 46.2 MCV 89.9 MCH 29.6 MCHC 32.9 RDW Coeff of Meryl 12.1 Plt Count 171 Immature Gran % (Auto) 1.0 Neut % (Auto) 88.1 H Lymph % (Auto) 4.7 L [place] % (Auto) 6.0 Eos % (Auto) 0.1 Baso % (Auto) 0.1 Neut # (Auto) 12.3 H Lymph # (Auto) 0.7 [place] # (Auto) 0.8 Eos # (Auto) 0.0 Baso # (Auto) 0.0 Immature Gran # (Auto) 0.1 Puncture Site Base Excess O2 Saturation ABG pH ABG pCO2 ABG pO2 ABG HCO3 ABG Total CO2 Antony Test Hemoglobin Oxyhemoglobin Carboxyhemoglobin Total Hemoglobin Sodium 132.9 L Potassium 4.53 Chloride 98.8 Carbon Dioxide 25.8 Anion Gap 12.83 BUN 12.9 Creatinine 1.09 Estimated GFR (MDRD) 65.00 BUN/Creatinine Ratio 11.83 Glucose 173.3 H Lactic Acid 2.04 Calcium 8.15 L Total Bilirubin 2.22 H AST 140.6 H ALT 162.5 H Alkaline Phosphatase 126.0 H Troponin I 0.016 Total Protein 6.40 Albumin 3.35 L Globulin 3.05 Albumin/Globulin Ratio 1.09 Lipase 166.4 Urine Color Dark yellow Urine Clarity Clear Urine pH 5.5 Ur Specific [place] >=1.030 Urine Protein 2+ H Urine Glucose (UA) Negative Urine Ketones 1+ H Urine Blood Trace-intact H Urine Nitrite Negative Urine Bilirubin 1+ H Urine Urobilinogen 2.0 H Ur Leukocyte Esterase Negative Urine Microscopic RBC 20-30 Ur Squamous Epith Cells Not Reportable Hyaline Casts 30-50 Urine Mucus 3+ SARS CoV-2 RNA Rapid TY Additional Comments Additional Comments: I have independently reviewed and interpreted the labs/EKGs/imaging ordered during this hospital stay. I have reviewed outside records that are available in our EMR that pertain to medical stay including imaging/notes/labs from previous visits. Active Medications Active Medications: Medications Generic Name Dose Route Start Last Admin Trade Name Freq PRN Reason Stop Dose Admin Amlodipine Besylate 5 mg 07/11/23 09:00 07/11/23 08:08 Amlodipine Besylate 5 Mg Tablet PO 5 mg DAILY PORFIRIO Administration Aspirin 81 mg 07/11/23 07:30 07/11/23 08:07 Aspirin 81 Mg Tablet. PO 81 mg 0730 PORFIRIO Administration Bisacodyl 5 mg 07/10/23 16:46 Bisacodyl 5 Mg Tablet. PO DAILY PRN Constipation Citalopram Hydrobromide 20 mg 07/10/23 21:00 07/10/23 20:23 Citalopram Hydrobromide 20 Mg Tablet PO 20 mg BEDTIME PORFIRIO Administration Enoxaparin Sodium 30 mg 07/11/23 09:00 07/11/23 08:08 Enoxaparin Sodium 30 Mg/0.3 Ml Syr SUBCUT 30 mg DAILY PORFIRIO Administration Famotidine 20 mg 07/10/23 17:00 07/11/23 05:11 Famotidine 20 Mg Tablet PO 20 mg 0600,1700 PORFIRIO Administration Sodium Chloride 1,000 mls @ 75 mls/hr 07/10/23 16:00 07/11/23 05:11 Sodium Chloride IV 75 mls/hr .[id number] PORFIRIO Administration Levofloxacin/Dextrose 750 mg in 150 mls @ 100 mls/hr 07/11/23 09:00 07/11/23 08:37 Levaquin 750 Mg/150 Ml D5w IV 07/14/23 08:59 100 mls/hr DAILY PORFIRIO Administration Lisinopril 20 mg 07/11/23 09:00 07/11/23 08:07 Lisinopril 10 Mg Tablet PO 20 mg DAILY PORFIRIO Administration Methocarbamol 750 mg 07/10/23 16:47 Methocarbamol 500 Mg Tablet PO Q8H PRN Spasms Metoclopramide HCl 5 mg 07/10/23 16:20 Metoclopramide Hcl 10 Mg/2 Ml IVP Q6H PRN Nausea / Vomiting Ondansetron HCl 4 mg 07/10/23 16:20 Ondansetron Hcl/Pf 4 Mg/2 Ml Sdv IVP Q6H PRN Nausea / Vomiting Plan Plan: 1. Community Acquired Pneumonia - PSI IV; levaquin IVPB daily, blood cultures pending, RT consult 2. Acute Transaminitis - Improving, likely due to #1, liver US negative, checking hepatitis panel, holding statins, monitor 3. Intractable N/V - Resolved, no additional vomiting, no obvious source, CT negative, zofran and reglan prn, full liquid - advance as tolerated 4. Hyponatremia - Improving, mild, NS@75mL/hr, repeat labs in am 5. Hypertension - chronic, uncontrolled at this time - likely due to inability to take PO meds from vomiting, IV dose hydralazine ordered, continue home medications 6. Hyperlipidemia - chronic, holding home medication due to elevated LFTs DVT Prophylaxis: Lovenox Review Statement Review Statement: I have personally discussed and reviewed the patient's visit/currently labs/imaging/decision making with Dr. aSnchez, my supervising attending. Greater that 50 minutes spent with patient, 50% of the time spent with this patient was devoted to counseling and coordination of care.
--- NOTE | 2023-07-11 11:40 | RS.PTINEVL ---
Subjective Patient information Date of Evaluation: 07/11/23 Date of Arrival on Unit: 07/10/23 Admitted From:: [facility] Diagnosis: B pneumonia, difficulty walking, impaired balance Usual [facility] Arrangement: [facility] Medical History: Hypertension, CVA/TIA and Dementia Medical History Comments:: cerebral infarct, GERD, wedge compression fx T11-T12, depression Medications: see chart Subjective Information/ Patient Comments:: pt states "I hate that brace, my back is fine." Level of function Abilities prior to this admission: pt was receiving PT at [facility] Current Level of Function: Partially Dependent Current Equipment Used at Home: RWX Interventions Objective Patient Orientation: Person and Place Current Interventions: IV's and Telemetry Observation: pt with TLSO brace to wear when up. Range of Motion ROM Right Upper Extremity AROM: WFL's Left Upper Extremity AROM: WFL's Right Lower Extremity AROM: WFL's Left Lower Extremity AROM: WFL's Muscle Strength Muscle Strength Right Upper Extremity: Mild Weakness (grossly 4/5) Left Upper Extremity: Mild Weakness (grossly 4/5) Right Lower Extremity: Mild Weakness (hip flex 4-/5, knee flex/ext 4/5, ankle DF/PF 4/5 ) Left Lower Extremity: Mild Weakness (hip flex 4-/5, knee flex/ext 4/5, ankle DF/PF 4/5 ) Sensation Sensation Right Upper Extremity: Intact/Normal Left Upper Extremity: Intact/Normal Right Lower Extremity: Intact/Normal Left Lower Extremity: Intact/Normal Palpation Palpation Findings: Tenderness and Muscle Guarding Balance Sitting Balance and Reactions Static Sitting Balance: Fair Dynamic Sitting Balance: Fair Standing Balance and Reactions Static Standing Balance: Poor Dynamic Standing Balance: Poor Standing Equilibrium Reactions: Delayed Left and Delayed Right Standing Protective Reactions: Delayed Left and Delayed Right Comments Balance Assessment Comments: pt able to maintain dyn sitting balance reaching away and across midline. Functional Mobility Bed Mobility Rolling R/L: Min Assist Scooting: Min Assist Supine to Sit: Min Assist and 1 person assist Transfers Sit to Stand: Min Assist and 2 person assist Stand to Sit: Min Assist and 1 person assist Safety Awareness Safety Awareness: Poor SHAKIR INDEX SCORE: n/a Ambulation Ambulation Assistive Device Used: Rolling Walker Orthotic/Prosthetic Device: Yes (TLSO brace ) Distance: 20ft Assistance needed with Ambulation: Min Assist, 1 person assist and 2 person assist Quality of Ambulation: amb with CGA to min x 1 +1 for IV Gait Deviations: Shuffling gait, Forward posture, Short stride and Deviates from path Factors Affecting Ambulation: Decreased Balance, Weakness, Decreased Co ordination, Decreased Safety, Cognitive Status and Limited Endurance Treatment time Time with patient Length of Evaluation: 19 Total treatment time: 27 Patient Education Education Patient Education: Activity Modification and Education of Plan of Care Teaching Recipient: Patient Teaching Methods: Discussion Comments: discussion regarding MD orders to wear TLSO when up. Assessment Assessment Problem List:: Decreased level of function, Requires training/education, Decreased safety/Risk of falls, Weakness and Cognitive status limits abilities Rehab Potential: Good Further Therapy Indicated?: Yes Candidate for Swing Bed for Therapy Services?: Feel pt may not be a candidate for swing bed due to pt plan is to return to [facility]. Evaluation Complexity: HISTORY: Medium, EXAM OF BODY SYSTEMS: Medium, CLINICAL PRESENTATION: Medium and CLINICAL DECISION MAKING: Medium Patient's Goal(s): to be able to walk better. Short Term Goals GOAL #1: pt perform bed mobility independently with bedrails. Goal to be met by: 07/13/23 GOAL #2: Transfer sup to/from sit CGA x 1 Goal to be met by: 07/13/23 GOAL #3: Sit to/from stand min x 1 Goal to be met by: 07/13/23 GOAL #4: pt amb with rwx and TLSO 50ft with CGA and improved step length. Goal to be met by: 07/13/23 GOAL #5: Improve BLE strength 4 to 4+/5 Goal to be met by: 07/13/23 Living Manager Goals GOAL #1: pt transfer sup to/from sit to/from stand CGA to SBA Goal to be met by: 07/15/23 GOAL #2: pt amb 100ft with rwx with TLSO brace with CGA x1 Goal to be met by: 07/15/23 GOAL #3: Improve dyn stand balance fair- Goal to be met by: 07/15/23 Plan Plan of Care: Therapeutic EX, Neuromuscular Re-Educ and Therapeutic Activity Other:: gait training Frequency of Treatment: 1-2 X day, as tolerated Duration of Treatment: 4-5 days Anticipated Discharge Destination: [facility] Facility Treatment Diagnosis (ICD 10 Codes): impaired balance R 26.81 gait difficulty R 26.2 weakness M62.81 Compression fracture T11-T12 Has the Physician been added for Co-signature?: Yes
[2023-07-11] MEDS: CELEXA PO SCH (20:06)
[2023-07-12 05:25] LABS: BASOPHILS % (AUTO) 0.2 % (0.0-3.0); EOSINOPHILS # (AUTO) 0.1 K/ul (0.0-0.7); EOSINOPHILS % (AUTO) 0.8 % (0.0-7.0); HEMATOCRIT 45.1 % (42.0-52.0); HEMOGLOBIN 15.1 g/dl (14.0-18.0); IMMATURE GRANULOCYTE # (AUTO) 0.1 (0.0-1.0); IMMATURE GRANULOCYTE % (AUTO) 0.5 % (0.0-5.0); LYMPHOCYTES # (AUTO) 1.6 K/uL (0.60-3.4); LYMPHOCYTES % (AUTO) 13.4 (10.0-50.0); MEAN CORPUSCULAR HEMOGLOBIN 29.8 pg (27.0-31.0); MEAN CORPUSCULAR HGB CONC 33.5 (31.8-35.4); MEAN CORPUSCULAR VOLUME 89.1 fl (80.0-94.0); MONOCYTES # (AUTO) 0.8 K/uL (0.4-2.0); MONOCYTES % (AUTO) 6.8 (0-10); NEUTROPHILS # (AUTO) 9.3 K/ul (2.0-6.9); NEUTROPHILS % (AUTO) 78.3 % (42.2-75.2); PLATELET COUNT 179 10^3/uL (140-440); RDW COEFFICIENT OF VARIATION 12.2 % (11.6-14.8); RED BLOOD COUNT 5.06 10^6/ul (4.70-6.10); WHITE BLOOD COUNT 11.83 K/ul (4.2-10.2)
[2023-07-12] MEDS: PEPCID PO SCH (05:29)
[2023-07-12 05:56] LABS: ALANINE AMINOTRANSFERASE 187.3 U/L (0-50); ALBUMIN 3.33 g/dL (3.5-5.0); ALKALINE PHOSPHATASE 117.1 U/L (56-119); ASPARTATE AMINO TRANSFERASE 174.9 U/L (17-59); BILIRUBIN,TOTAL 1.88 mg/dL (0.2-1.3); CALCIUM 8.67 mg/dL (8.4-10.2); CHLORIDE 100.9 mmol/L (98-107); CREATININE 0.67 mg/dL (0.60-1.10); GLUCOSE 103.1 mg/dL (74-106); POTASSIUM 3.86 mmol/L (3.5-5.1); SODIUM 135.2 mmol/L (134.5-145); TOTAL PROTEIN 6.4 g/dL (6.3-8.2)
[2023-07-12 07:17] LABS: HBsAgSCREEN Negative (Negative); HCV ANTIBODY Non Reactive (Non Reactive); HEP A AB, IgM Negative (Negative); HEP B CORE Ab, IgM Negative (Negative)
[2023-07-12] MEDS: SODIUM CHLORIDE 1,000 ML IV SCH (07:55)
[2023-07-12] MEDS: ZESTRIL PO SCH (08:13)
[2023-07-12] MEDS: NORVASC PO SCH (08:13)
[2023-07-12] MEDS: LOVENOX SUBCUT SCH (08:13)
[2023-07-12] MEDS: ASPIRIN EC PO SCH (08:13)
[2023-07-12] MEDS: LEVAQUIN 750 MG/150 ML D5W 750 MG/150 ML BAG IV SCH (08:21)
--- NOTE | 2023-07-12 13:12 | DCSUM ---
Admission Date Admission Date: 07/10/23 Discharge Date Discharge Date: 07/12/23 Admission Diagnosis Admission Diagnosis: 1. Community Acquired Pneumonia 2. Acute Transaminitis 3. Intractable N/V 4. Hyponatremia 5. Hypertension 6. Hyperlipidemia Discharge Diagnosis Discharge Diagnosis: 1. Community Acquired Pneumonia - Improving 2. Liver Failure - Worsening 3. Intractable N/V - Resolved 4. Hyponatremia - Resolved 5. Hypertension - Stable 6. Hyperlipidemia - Stable Hospital Provider Hospital Provider: MARILYN SMITH, [facility] [place] Primary Care Physician Primary Care Physician: ASHLEY CLIFFORD MD Summary of History and Physical Summary of History and Physical: 82 yo male presented to the ER from local [facility] with nausea and vomiting that started today. He was given zofran by the ambulance crew and has not vomited since. Work-up revealed bilateral pneumonia. He was then admitted to the medical floor. Patient has pmh of dementia and is unable to provide ROS and HPI Hospital Course Subjective: Patient was treated with levaquin for bilateral pneumonia. WBC count improved over course. Did not require oxygen throughout stay. He was brought in for vomiting. No other vomiting occurred during stay and has not vomited since admission. He was found to have elevated liver enzymes in the ER and CT scan of abdomen and abdominal ultrasound was completed. No acute findings were noted. On day 2 liver enzymes decreased but were still high. Checked hepatitis panel that was negative. Today, liver enzyme showed to be more elevated today. Discussed extensively with son current situation and he reports he does not want further investigation of liver failure at this point. Stopped statin. He was mildly hyponatremic during his stay. Received IV fluids and resolved. All other home medications were continued at this visit. Appearance: Pleasant, No Apparent Distress, Alert and Ill-appearing HEENT: MMM and Supple CVS: No Murmur and No Rubs Abdomen: Soft, Non-Tender and No Distention Respiratory: No Dyspnea Extremities: No Edema Additional Findings: Jaundiced sclera and skin Vital Signs: Most Recent Vital Signs Temperature 97.5 F L 07/12/23 05:10 Temperature Source Temporal Artery Scan 07/12/23 05:10 Temperature Source Infrared 07/10/23 12:23 Pulse Rate 84 07/12/23 05:10 Respiratory Rate 18 07/12/23 05:10 Blood Pressure 157/82 H 07/12/23 05:10 Blood Pressure Mean 107 07/12/23 05:10 Blood Pressure Right Arm 188/102 07/10/23 16:18 Blood Pressure Location Left Arm 07/12/23 05:10 Blood Pressure Position Supine 07/12/23 05:10 O2 Sat by Pulse Oximetry 95 07/12/23 05:10 Oxygen Delivery Method Room Air 07/12/23 08:10 Height 5 ft 11 in 07/12/23 00:41 Weight 181 lb 07/12/23 00:41 Telemetry Type Remote Telemetry 07/12/23 07:00 Telemetry Monitoring Continues 07/12/23 07:00 Telemetry Heart Rate 71 07/12/23 07:00 EKG IL Interval 0.19 07/12/23 07:00 EKG QRS Interval 0.08 07/12/23 07:00 Telemetry Strip Reading NSR with PVC 07/12/23 07:00 Lab Results Last 24 Hours: 07/12/23 07/12/23 07/11/23 11:24 04:48 04:54 WBC 11.83 H RBC 5.06 Hgb 15.1 Hct 45.1 D MCV 89.1 MCH 29.8 MCHC 33.5 RDW Coeff of Meryl 12.2 Plt Count 179 Immature Gran % (Auto) 0.5 Neut % (Auto) 78.3 H Lymph % (Auto) 13.4 [place] % (Auto) 6.8 Eos % (Auto) 0.8 Baso % (Auto) 0.2 Neut # (Auto) 9.3 H Lymph # (Auto) 1.6 [place] # (Auto) 0.8 Eos # (Auto) 0.1 Baso # (Auto) 0.0 Immature Gran # (Auto) 0.1 Sodium 135.2 Potassium 3.86 Chloride 100.9 Carbon Dioxide 25.0 Anion Gap 13.16 BUN 7.0 L Creatinine 0.67 Estimated GFR (MDRD) 113.00 BUN/Creatinine Ratio 10.44 Glucose 103.1 Calcium 8.67 Total Bilirubin 1.88 H AST 174.9 H D ALT 187.3 H D Alkaline Phosphatase 117.1 D Ammonia < 8.7 L Total Protein 6.40 Albumin 3.33 L Globulin 3.07 Albumin/Globulin Ratio 1.08 Hepatitis A IgM Ab Negative Hep Bs Antigen Negative Hep B Core IgM Ab Negative Hepatitis C Antibody Non reactive Discharge Instructions Discharge Planning: Discharge Planning > 40 minutes If patient is discharged with left ventricular systolic dysfunction: NA Discharged with a beta vita? [] If no, why not? [] Discharged with an shaina/arb? [] If no, why not? [] Complete course of levaquin Activity as tolerated Regular diet Stop taking rosuvastatin due to liver failure Family requests no further intervention for liver failure - patient does appear jaundice Discharge Medications: Medications at Discharge (Home Meds & RX) amlodipine 5 mg tablet 5 mg PO ONCE 07/10/23 aspirin 81 mg tablet,delayed release (Adult Aspirin Regimen) 81 mg PO DAILY 07/10/23 bisacodyl 5 mg tablet 5 mg PO DAILY 07/10/23 citalopram 20 mg tablet 20 mg PO ONCE 07/10/23 famotidine 20 mg tablet 20 mg PO BID 07/10/23 lisinopril 20 mg tablet 20 mg PO ONCE 07/10/23 methocarbamol 750 mg tablet 750 mg PO Q8H 07/10/23 levofloxacin 750 mg tablet 750 mg PO Q24H #7 tabs 07/12/23 Discharge Plan Discharge Discharge Orders: Discharge Patient (ONCE); Ordered 07/12/23 Ordered By: MELISSA STONE Activity Restrictions/Additional Instructions: Complete course of levaquin Activity as tolerated Regular diet Stop taking rosuvastatin due to liver failure Family requests no further intervention for liver failure - patient does appear jaundice Instructions: Acute Liver Failure (GEN), Pneumonia (DC) Care Plan Goals: Problem: Impaired Skin Integrity Goal: Improve skin integrity Instructions: Ambulate or up to chair as tolerated Increase oral intake if indicated Diet consult if indicated Keep bedding and clothing warm/dry Apply aloe vesta cream as needed Problem: Infection Goal #1: No signs/symptoms of infection Instructions: Monitor for sign/symptoms of infection Monitor temperature Goal #2: White blood cell counts Within Normal Limits Instructions: Obtain labs per physician orders Patient Disposition: TRANSF[facility] Prescriptions: New levofloxacin 750 mg tablet 750 mg PO Q24H Qty: 7 0RF Continued amlodipine 5 mg tablet 5 mg PO ONCE citalopram 20 mg tablet 20 mg PO ONCE famotidine 20 mg tablet 20 mg PO BID lisinopril 20 mg tablet 20 mg PO ONCE methocarbamol 750 mg tablet 750 mg PO Q8H bisacodyl 5 mg tablet 5 mg PO DAILY aspirin [Adult Aspirin Regimen] 81 mg tablet,delayed release (DR/EC) 81 mg PO DAILY Discontinued rosuvastatin 10 mg tablet 10 mg PO ONCE Did you review [place] [employer] for ALL controlled substances?: No Discussed opioids are addictive and Narcan is available by prescription or from pharmacy.: No Condition: Stable
[2023-07-12 14:12] VITALS: BP 145/82; PULSE 86; RESP 17; TEMP 97.8
--- NOTE | 2023-07-12 16:24 | RS.OTINEVL ---
Subjective Patient information Date of Evaluation: 07/12/23 Date of Arrival on Unit: 07/10/23 Admitted From:: [facility] ([facility]) Diagnosis: Weakness R53.1, Need for assistance with personal care Z74.1 PRECAUTIONS: Fall risk Usual Living Arrangement: [facility] Living Arrangement Comments: Living at [facility] Medical History: Hypertension, CVA/TIA and Dementia Medical History Comments:: cerebral infarct, GERD, wedge compression fx T11-T12, depression Surgical History: Thoracic Spine Surgical History Comments:: Back surgery Medications: see chart Subjective Information/ Patient Comments:: "I feel there and broke my back." Level of function Prior to this admission, the patient could do the following:: Partially Dependent Ambulation Current Level of Function: Partially Dependent Current Equipment Used at Home: RWX Pain Assessment Pain Pain Score: 6 Side: bilateral Pain Location Body Site: Back Pain Aggravating Factors: Standing Pain Alleviating Factors: Medication and Position Change Interventions Objective Patient Orientation: Person and Situation Observation: Pt is weak and requires moderate assist x 2 to stand and max assist for managing his brief. Interventions ROM Right Upper Extremity AROM: WFL's Left Upper Extremity AROM: WFL's Strength Right Upper Extremity: Mild Weakness Left Upper Extremity: Mild Weakness Sensation Right Upper Extremity: Intact/Normal Left Upper Extremity: Intact/Normal Balance Sitting Balance Static Sitting Balance: Fair Dynamic Sitting Balance: Fair Standing Balance Static Standing Balance: Poor Dynamic Standing Balance: Poor ADL Skills Self Feeding Self Feeding: Set Up Only Grooming Grooming: Set Up Only Grooming Set-up: Sitting Bathing Bathing UE: Not Tested Bathing LE: Not Tested Bathing Set-up: Bedside Dressing Dressing UE: Set Up Only Dressing LE: Max Assist Toilet Management Toilet Hygiene: Max Assist Toilet Clothing Management: Max Assist Functional Mobility Bed Mobility Rolling R/L: Not Tested Scooting: Not Tested Supine to Sit: Not Tested Sit to Supine: Not Tested Transfers Sit to Stand: Mod Assist and 2 person assist Stand to Sit: Min Assist, 1 person assist and Verbal Cues Ambulation Weight Bearing Status: FWB Assistance needed with Ambulation: Not Tested Safety Awareness Safety Awareness: Good SHAKIR INDEX SCORE: . Additional Treatment Performed Additional units charged ADL: 15 Time with patient Length of Evaluation: 18 Total treatment time: 33 Activities Do you enjoy playing games?: No Would you be interested in leaving your room for activities?: Yes Would you enjoy group activities?: No Do you have difficulty with your vision?: No What types of things do you enjoy doing? Any Hobbies?: [employer] Patient Interests:: Watching Television Patient Education Patient Education: Education of diagnosis, Home Safety and Education of Plan of Care Teaching Recipient: Patient Teaching Methods: Discussion and Demonstration Assessment Problem List:: Decreased level of function, Requires training/education, Decreased safety/Risk of falls, Weakness and Pain limits previous level of function Rehab Potential: Good Further Therapy Indicated?: Yes Evaluation Complexity: HISTORY: Medium, EXAM OF BODY SYSTEMS: Medium and CLINICAL DECISION MAKING: Medium Patient's Goal(s): To go back to [facility] for therapy. Short Term Goals Goals GOAL 1: Pt to increase [place] of using the urinal to Min A. Goal to be met by: 07/14/23 GOAL 2: Pt to increase BUE strength to 4+/5. Goal to be met by: 07/17/23 GOAL 3: Pt pain to decrease to 2-4/10. Goal to be met by: 07/17/23 Snf Goals GOAL 1: Pt pain to decrease to 0-2/10. Goal to be met by: 07/18/23 GOAL 2: Pt to increase BUE strength to 5/5. Goal to be met by: 07/18/23 GOAL 3: Pt to be I with use of urinal. Goal to be met by: 07/18/23 Plan Plan of Care: Therapeutic EX, Therapeutic Activity and Self-Care/Home Management Frequency of Treatment: 1-2 X day, as tolerated Duration of Treatment: 1 Week Anticipated Discharge Destination: [facility] Treatment Diagnosis (ICD 10 Codes): Weakness R53.1 Has the Physician been added for Co-signature?: Yes
== END 2023-07-12 15:10 | DRG 194 ==
LOC: ED 12:22 → MEDSURG B 15:20
PROVIDERS: ADMIT Hospitalist; ATTEND Nurse Practitioner Family
DX: E87.1 Hypo-osmolality and hyponatremia; Z79.899 Other long term (current) drug therapy; N40.0 Benign prostatic hyperplasia without lower urinary tract symptoms; Z79.82 Long term (current) use of aspirin; D35.00 Benign neoplasm of unspecified adrenal gland; Z91.81 History of falling; R11.2 Nausea with vomiting, unspecified; K44.9 Diaphragmatic hernia without obstruction or gangrene; S22.080D Wedge compression fracture of T11-T12 vertebra, subsequent encounter for fracture with routine healing; F03.90 Unspecified dementia, unspecified severity, without behavioral disturbance, psychotic disturbance, mood disturbance, and anxiety; Z90.49 Acquired absence of other specified parts of digestive tract; Z51.81 Encounter for therapeutic drug level monitoring; I10 Essential (primary) hypertension; Z86.718 Personal history of other venous thrombosis and embolism; I70.90 Unspecified atherosclerosis; E78.5 Hyperlipidemia, unspecified; F41.9 Anxiety disorder, unspecified; D72.829 Elevated white blood cell count, unspecified; Z79.01 Long term (current) use of anticoagulants; R74.01 Elevation of levels of liver transaminase levels; K72.90 Hepatic failure, unspecified without coma; J18.9 Pneumonia, unspecified organism; I25.2 Old myocardial infarction

== ENCOUNTER 2024-08-28 12:22 | Inpatient (IN) ==
[2024-08-28 12:58] LABS: BASOPHILS % (AUTO) 0.1 % (0.0-3.0); EOSINOPHILS % (AUTO) 0.1 % (0.0-7.0); HEMATOCRIT 51.5 % (42.0-52.0); HEMOGLOBIN 16.4 g/dl (14.0-18.0); IMMATURE GRANULOCYTE # (AUTO) 0.2 (0.0-1.0); IMMATURE GRANULOCYTE % (AUTO) 0.9 % (0.0-5.0); LYMPHOCYTES # (AUTO) 1.5 K/uL (0.60-3.4); LYMPHOCYTES % (AUTO) 8.4 (10.0-50.0); MEAN CORPUSCULAR HEMOGLOBIN 29.8 pg (27.0-31.0); MEAN CORPUSCULAR HGB CONC 31.8 (31.8-35.4); MEAN CORPUSCULAR VOLUME 93.6 fl (80.0-94.0); MONOCYTES # (AUTO) 0.7 K/uL (0.4-2.0); MONOCYTES % (AUTO) 3.9 (0-10); NEUTROPHILS # (AUTO) 15.6 K/ul (2.0-6.9); NEUTROPHILS % (AUTO) 86.6 % (42.2-75.2); PLATELET COUNT 174 10^3/uL (140-440); RDW COEFFICIENT OF VARIATION 13.2 % (11.6-14.8); WHITE BLOOD COUNT 17.98 K/ul (4.2-10.2)
[2024-08-28 13:11] LABS: ALANINE AMINOTRANSFERASE 43.1 U/L (0-50); ALBUMIN 4.43 g/dL (3.5-5.0); ALKALINE PHOSPHATASE 77.2 U/L (56-119); ASPARTATE AMINO TRANSFERASE 55.8 U/L (17-59); BILIRUBIN,TOTAL 1.46 mg/dL (0.2-1.3); BLOOD UREA NITROGEN 21.5 mg/dL (9-20); CALCIUM 9.12 mg/dL (8.4-10.2); CARBON DIOXIDE 30.5 mmol/L (22-30.0); CHLORIDE 97.2 mmol/L (98-107); CREATININE 1.22 mg/dL (0.60-1.10); POTASSIUM 3.94 mmol/L (3.5-5.1); SODIUM 138.7 mmol/L (134.5-145); TOTAL PROTEIN 7.47 g/dL (6.3-8.2)
--- NOTE | 2024-08-28 13:16 | ED.PDOC ---
General ED Provider: Dr. KRISTEN LOU MD Chief Complaint: Respiratory Complaint Stated Complaint: Pt presents from long term and states he is not feeling well. He reports body aches, chills, headache and cough. Cough is non productive. No known fever. +headache and mild nasal congestion. Feels nauseated but no vomiting or diarrhea. He reports feeling SOB and states he has a little bit of chest pain from coughing. He does not normally wear O2 and does not use inhalers or nebs regularly. Symptoms just started earlier today. Time Seen by Provider: 08/28/24 12:39 Mode of Arrival: Wheelchair Information Source: Patient Exam Limitations: No limitations Primary Care Provider: ASHLEY CLIFFORD MD Nursing and Triage Documentation Reviewed and Agree: Yes Does Patient Take Opioids?: No Is Patient Opioid Naive?: Yes What is Opioid Naive?: *Opioid Naive implies the patient is not already taking opioids or not chronically receiving opioids on a daily basis. *PRN dosing is not "usually" associated with tolerance. *Patients are at higher risk of over-sedation and aspiration. Is Patient Opioid Tolerant?: No What is Opioid Tolerant?: *Opioid Tolerance implies less than the expected response to an opioid. *Acquired tolerance is defined by the patient taking 60mg of oral morphine daily (or equianalgesic dose of another opioid) for 1 week or more. *Often associated with chronic pain. *May take more than usual dose to achieve desired pain control. Respiratory Complaint Exam Respiratory Complaint/Exam Onset/Duration: today Symptoms Are: Still present Timing: Constant Initial Severity: Moderate Current Severity: Moderate Location: Nose and Chest Character: Reports Non-productive cough Aggravating: Reports None Alleviating: Reports None Associated Signs and Symptoms: Reports Dyspnea, Chills and Nasal congestion; Denies Fever or Vomiting Review of Systems Review Of Systems Constitutional: Reports Chills Eyes: Reports No symptoms Ears, Nose, Mouth, Throat: Reports Other (nasal congestion) Respiratory: Reports Cough and Shortness of Breath Cardiac: Reports Chest pain GI: Reports Nausea; Denies Abdominal pain, Diarrhea or Vomiting Musculoskeletal: Reports Muscle pain Skin: Reports No symptoms Neurological: Reports No symptoms Endocrine: Reports No symptoms Hematologic/Lymphatic: Reports No symptoms [facility] Medical History Personal history of transient ischemic attack (TIA), and cerebral infarction without residual deficits Z86.73 - Personal history of transient ischemic attack (TIA), and cerebral infarction without residual deficits (ICD-10) Other symbolic dysfunctions R48.8 - Other symbolic dysfunctions (ICD-10) Other specified arthritis, unspecified site M13.80 - Other specified arthritis, unspecified site (ICD-10) Essential (primary) hypertension I10 - Essential (primary) hypertension (ICD-10) Need for assistance with personal care Z74.1 - Need for assistance with personal care (ICD-10) Other abnormalities of gait and mobility R26.89 - Other abnormalities of gait and mobility (ICD-10) Unspecified hearing loss, right ear H91.91 - Unspecified hearing loss, right ear (ICD-10) Unspecified lack of coordination R27.9 - Unspecified lack of coordination (ICD-10) Muscle weakness (generalized) M62.81 - Muscle weakness (generalized) (ICD-10) Personal history of COVID-19 Z86.16 - Personal history of COVID-19 (ICD-10) Unspecified dementia, unspecified severity, without behavioral disturbance, psychotic disturbance, mood disturbance, and anxiety F03.90 - Unspecified dementia, unspecified severity, without behavioral disturbance, psychotic disturbance, mood disturbance, and anxiety (ICD-10) Atherosclerotic heart disease of [place] coronary artery without angina pectoris I25.10 - Atherosclerotic heart disease of [place] coronary artery without angina pectoris (ICD-10) Major depressive disorder, single episode, unspecified F32.9 - Major depressive disorder, single episode, unspecified (ICD-10) Type 2 diabetes mellitus without complications E11.9 - Type 2 diabetes mellitus without complications (ICD-10) Pneumonia, unspecified organism J18.9 - Pneumonia, unspecified organism (ICD-10) Acute and subacute hepatic failure without coma K72.00 - Acute and subacute hepatic failure without coma (ICD-10) Vertigo of central origin H81.4 - Vertigo of central origin (ICD-10) Type 2 diabetes mellitus with diabetic neuropathy, unspecified E11.40 - Type 2 diabetes mellitus with diabetic neuropathy, unspecified (ICD-10) Wedge compression fracture of t11-T12 vertebra, subsequent encounter for fracture with routine healing S22.080D - Wedge compression fracture of T11-T12 vertebra, subsequent encounter for fracture with routine healing (ICD-10) Dementia F03.90 - Unspecified dementia, unspecified severity, without behavioral disturbance, psychotic disturbance, mood disturbance, and anxiety (ICD-10) Hyperlipidemia E78.5 - Hyperlipidemia, unspecified (ICD-10) Atherosclerotic heart disease I25.10 - Atherosclerotic heart disease of [place] coronary artery without angina pectoris (ICD-10) Vertigo R42 - Dizziness and giddiness (ICD-10) Depression F32.A - Depression, unspecified (ICD-10) Type 2 diabetes mellitus E11.9 - Type 2 diabetes mellitus without complications (ICD-10) COPD (chronic obstructive pulmonary disease) J44.9 - Chronic obstructive pulmonary disease, unspecified (ICD-10) Cognitive communication deficit R41.841 - Cognitive communication deficit (ICD-10) Cerebral infarction I63.9 - Cerebral infarction, unspecified (ICD-10) TIA (transient ischemic attack) G45.9 - Transient cerebral ischemic attack, unspecified (ICD-10) GERD without esophagitis K21.9 - Gastro-esophageal reflux disease without esophagitis (ICD-10) Personal history of other venous thrombosis and embolism Z86.718 - Personal history of other venous thrombosis and embolism (ICD-10) Hypertension I10 - Essential (primary) hypertension (ICD-10) Social History Alcohol intake: unknown care home: Yes ([facility]) Physical Exam Physical Exam Appearance: Reports Ill-appearing Ill-appearing: Mild Eyes: Reports Conjunctiva clear Neck: Supple Respiratory: Reports Airway patent, Breath sounds equal and Breath sounds diminished Cardiovascular: Reports RRR GI/: Reports Soft and Nontender Musculoskeletal: Reports ROM intact Skin: Reports Warm and Dry Neurological: Reports Alert Psychiatric: Reports Affect appropriate Interpretation Radiology Interpretation Radiology Interpretation By: ED Physician Radiology Results: Positive (bibasilar pneumonia) Exam Interpreted: Portable CXR Physician Notification Case Discussed Physician Notified: BRITTANY Zaragoza Time of Notification: 13:40 Admit To: Inpatient Course Course 08/28/24 12:53 08/28/24 12:53 Orders, Labs, Meds: Lab Review 08/28/24 08/28/24 12:53 12:54 WBC 17.98 H RBC 5.50 Hgb 16.4 Hct 51.5 MCV 93.6 MCH 29.8 MCHC 31.8 RDW Coeff of Meryl 13.2 Plt Count 174 Immature Gran % (Auto) 0.9 Neut % (Auto) 86.6 H Lymph % (Auto) 8.4 L [place] % (Auto) 3.9 Eos % (Auto) 0.1 Baso % (Auto) 0.1 Neut # (Auto) 15.6 H Lymph # (Auto) 1.5 [place] # (Auto) 0.7 Eos # (Auto) 0.0 Baso # (Auto) 0.0 Immature Gran # (Auto) 0.2 Sodium 138.7 Potassium 3.94 Chloride 97.2 L Carbon Dioxide 30.5 H Anion Gap 14.94 BUN 21.5 H Creatinine 1.22 H Estimated GFR (MDRD) 57.00 BUN/Creatinine Ratio 17.62 Glucose 153.0 H Lactic Acid 3.56 H Calcium 9.12 Total Bilirubin 1.46 H AST 55.8 ALT 43.1 Alkaline Phosphatase 77.2 Total Protein 7.47 Albumin 4.43 Globulin 3.04 Albumin/Globulin Ratio 1.45 Influ A Molecular Assay Negative by naat Influ B Molecular Assay Negative by naat RSV Antigen Negative by naat SARS CoV-2 RNA Rapid TY Negative Orders Category Date Time Status ED APPLY O2 .ONCE EMERGENCY 08/28/24 12:44 Active ED PACKAGE REINSPECTOR APPLIED .ONCE EMERGENCY 08/28/24 12:44 Active ED IV/MEDIPORT/POWERPORT .ONCE EMERGENCY 08/28/24 12:44 Active ED VITAL SIGNS .ONCE EMERGENCY 08/28/24 12:44 Active BLOOD CULTURE (ED ONLY) Stat LAB 08/28/24 13:07 Received CBC W/ AUTO DIFF Stat LAB 08/28/24 12:53 Completed COMPREHENSIVE METABOLIC PANEL Stat LAB 08/28/24 12:53 Completed FLU A/B MOLECULAR Stat LAB 08/28/24 12:54 Completed LACTIC ACID Stat LAB 08/28/24 12:53 Completed RSV Stat LAB 08/28/24 12:54 Completed SARS COV-2 RNA RAPID TY Stat LAB 08/28/24 12:54 Completed URINALYSIS C & S IF INDICATED Stat LAB 08/28/24 12:44 Uncollected 0.9 % Sodium Chloride [Saline Flush] Meds 08/28/24 12:44 Active 1 syr IVF PRN PRN Ondansetron HCl/Pf [Zofran 4 mg/2 ml] Meds 08/28/24 12:44 Discontinued 4 mg IVP ONCE STA Sodium Chloride 0.9% [Sodium Chloride] 500 ml Meds 08/28/24 12:44 Active IV BOLUS Sodium Chloride 0.9% [Sodium Chloride] 500 ml Meds 08/28/24 13:24 Active IV BOLUS CHEST, 1V AP ONLY Stat RADS 08/28/24 12:44 Completed Medications Generic Name Dose Route Start Last Admin Trade Name Freq PRN Reason Stop Dose Admin Sodium Chloride 500 mls @ 500 mls/hr 08/28/24 12:44 08/28/24 13:29 Sodium Chloride IV 08/28/24 13:43 500 mls/hr BOLUS ONE Administration Sodium Chloride 500 mls @ 500 mls/hr 08/28/24 13:24 Sodium Chloride IV 08/28/24 14:23 BOLUS ONE Sodium Chloride 1 syr 08/28/24 12:44 0.9% Sodium Chloride 10 Ml Disp.Syrin IVF PRN PRN To flush IV Discontinued Medications Generic Name Dose Route Start Last Admin Trade Name Freq PRN Reason Stop Dose Admin Ondansetron HCl 4 mg 08/28/24 12:44 08/28/24 13:30 Ondansetron Hcl/Pf 4 Mg/2 Ml Sdv IVP 08/28/24 12:45 4 mg ONCE STA Administration Vital Signs: Temp Pulse Resp BP Pulse Ox O2 Flow Rate 08/28/24 13:20 6 08/28/24 12:27 97.2 F L 71 16 100/52 L 90 L Discharge Plan Discharge Patient Disposition: ADMITTED INPATIENT Discharge Problem: Sepsis, Pneumonia, Acute hypoxic respiratory failure Prescriptions: No Action amlodipine 5 mg tablet 5 mg PO DAILY citalopram 20 mg tablet 10 mg PO BEDTIME famotidine 20 mg tablet 20 mg PO DAILY lisinopril 20 mg tablet 20 mg PO DAILY methocarbamol 750 mg tablet 750 mg PO Q8H PRN (Reason: muscle spasm) bisacodyl 5 mg tablet 5 mg PO DAILY aspirin [Adult Aspirin Regimen] 81 mg tablet,delayed release (DR/EC) 81 mg PO DAILY atorvastatin 20 mg tablet 20 mg PO DAILY acetaminophen 325 mg tablet 650 mg PO Q6H PRN (Reason: pain) ondansetron 4 mg tablet,disintegrating 4 mg PO Q6H PRN (Reason: nausea and/or vomiting) loperamide [Anti-Diarrheal (loperamide)] 2 mg capsule 2 mg PO Q1HR PRN (Reason: diarrhea) tamsulosin 0.4 mg capsule 0.4 mg PO BEDTIME benzonatate 100 mg capsule 200 mg PO Q6HR PRN (Reason: cough) ondansetron HCl 4 mg tablet 4 mg PO Q6H PRN (Reason: nausea) Did you review [place] [employer]QUIPMENT OPERATOR for ALL controlled substances?: Not Applicable ED Provider: KRISTEN LOU Condition: Stable Physician Progress Note: Reviewed labs and CXR. CXR shows bibasilar PNA and labs show elevated white count and lactate. IV fluids were given, along with zofran. Pt was initially hypoxic and is currently on 6 liters by DC with O2 sats 93 percent. He has remained otherwise hemodynamically stable here. Covid/flu/RSV negative. He states he is feeling better after IVF, zofran and oxygen and is resting comfortably currently with mild tachypnea, but no increased WOB. IV rocephin and azithromycin ordered and PA consulted for admission to hospital for further IV antibiotics and oxygen and close observation.
--- NOTE | 2024-08-28 13:27 | DI ---
EXAM: CHEST ONE-VIEW HISTORY: Cough and shortness of breath COMPARISON: AP chest from 07/10/2023 FINDINGS: The cardiomediastinal silhouette is normal. The pulmonary vasculature is normal. Bibasi lar infiltrates are new since the prior. No pneumothoraces or pleural effusions. IMPRESSION: 1. Bibasilar pneumonia. .
[2024-08-28 13:28] LABS: MOLECULAR FLU A NEGATIVE BY NAAT (NEGATIVE); MOLECULAR FLU B NEGATIVE BY NAAT (NEGATIVE); RSV MOLECULAR NEGATIVE BY NAAT (NEGATIVE); SARS COV-2 RNA RAPID NAAT NEGATIVE (NEGATIVE)
[2024-08-28] MEDS: SODIUM CHLORIDE 500 ML IV ONE ×2 (13:29→14:31)
[2024-08-28] MEDS: ZOFRAN 4 MG/2 ML IVP STA (13:30)
[2024-08-28] MEDS: ROCEPHIN 1 GM/50 ML D5W 1 GM/50 ML BAG IV ONE (14:07)
--- NOTE | 2024-08-28 14:19 | PCM ---
Date of Service Date Seen by Provider: 08/28/24 Time Seen by Provider: 15:20 Admit Day/Time Admission Date: 08/28/24 Admission Time: 13:45 Reason for Admission Chief Complaint: BIBASILAR PNUEMONIA, SEPSIS, RESP FAILURE Hospital Provider Hospital Provider: GREGOR HONG PA-C, [facility] Primary Care Physician Primary Care Physician: ASHLEY SANCHEZ MD History of Present Illness History of Present Illness: Patient is a 83 year old male from [facility] with pmhx of hyperlipidemia, hypertension, BPH, COPD who presents for worsening sob and cough. Patient states he hasn't felt well in a couple days. Has had pna in the past, hospitalized maybe 5 years ago. He denies chest pain. Nonproductive cough. Was noted to be hypoxic and is requiring 6L. CXR showing bibasilar pna. Pt given rocephin and azith. Lactic acid and wbc count elevated. Pt meets sepsis criteria. Given a liter of fluid in the ER. Admitted to med surg. Case Discussed With Case Discussed With: Patient's case was discussed with the ER Physicians, Dr. Joseph. [facility] Medical History Personal history of transient ischemic attack (TIA), and cerebral infarction without residual deficits Z86.73 - Personal history of transient ischemic attack (TIA), and cerebral infarction without residual deficits (ICD-10) Other symbolic dysfunctions R48.8 - Other symbolic dysfunctions (ICD-10) Other specified arthritis, unspecified site M13.80 - Other specified arthritis, unspecified site (ICD-10) Essential (primary) hypertension I10 - Essential (primary) hypertension (ICD-10) Need for assistance with personal care Z74.1 - Need for assistance with personal care (ICD-10) Other abnormalities of gait and mobility R26.89 - Other abnormalities of gait and mobility (ICD-10) Unspecified hearing loss, right ear H91.91 - Unspecified hearing loss, right ear (ICD-10) Unspecified lack of coordination R27.9 - Unspecified lack of coordination (ICD-10) Muscle weakness (generalized) M62.81 - Muscle weakness (generalized) (ICD-10) Personal history of COVID-19 Z86.16 - Personal history of COVID-19 (ICD-10) Unspecified dementia, unspecified severity, without behavioral disturbance, psychotic disturbance, mood disturbance, and anxiety F03.90 - Unspecified dementia, unspecified severity, without behavioral disturbance, psychotic disturbance, mood disturbance, and anxiety (ICD-10) Atherosclerotic heart disease of [place] coronary artery without angina pectoris I25.10 - Atherosclerotic heart disease of [place] coronary artery without angina pectoris (ICD-10) Major depressive disorder, single episode, unspecified F32.9 - Major depressive disorder, single episode, unspecified (ICD-10) Type 2 diabetes mellitus without complications E11.9 - Type 2 diabetes mellitus without complications (ICD-10) Pneumonia, unspecified organism J18.9 - Pneumonia, unspecified organism (ICD-10) Acute and subacute hepatic failure without coma K72.00 - Acute and subacute hepatic failure without coma (ICD-10) Vertigo of central origin H81.4 - Vertigo of central origin (ICD-10) Type 2 diabetes mellitus with diabetic neuropathy, unspecified E11.40 - Type 2 diabetes mellitus with diabetic neuropathy, unspecified (ICD-10) Wedge compression fracture of t11-T12 vertebra, subsequent encounter for fracture with routine healing S22.080D - Wedge compression fracture of T11-T12 vertebra, subsequent encounter for fracture with routine healing (ICD-10) Dementia F03.90 - Unspecified dementia, unspecified severity, without behavioral disturbance, psychotic disturbance, mood disturbance, and anxiety (ICD-10) Hyperlipidemia E78.5 - Hyperlipidemia, unspecified (ICD-10) Atherosclerotic heart disease I25.10 - Atherosclerotic heart disease of [place] coronary artery without angina pectoris (ICD-10) Vertigo R42 - Dizziness and giddiness (ICD-10) Depression F32.A - Depression, unspecified (ICD-10) Type 2 diabetes mellitus E11.9 - Type 2 diabetes mellitus without complications (ICD-10) COPD (chronic obstructive pulmonary disease) J44.9 - Chronic obstructive pulmonary disease, unspecified (ICD-10) Cognitive communication deficit R41.841 - Cognitive communication deficit (ICD-10) Cerebral infarction I63.9 - Cerebral infarction, unspecified (ICD-10) TIA (transient ischemic attack) G45.9 - Transient cerebral ischemic attack, unspecified (ICD-10) GERD without esophagitis K21.9 - Gastro-esophageal reflux disease without esophagitis (ICD-10) Personal history of other venous thrombosis and embolism Z86.718 - Personal history of other venous thrombosis and embolism (ICD-10) Hypertension I10 - Essential (primary) hypertension (ICD-10) Social History Alcohol intake: unknown long-term: Yes ([place]) Allergies Allergies Allergy/AdvReac Type Severity Reaction Status Date / Time morphine AdvReac Verified 08/28/24 13:02 Current Medications Home Medications amlodipine 5 mg tablet 5 mg PO DAILY 07/10/23 [History Confirmed 08/28/24 Last Taken 01/12/24] aspirin 81 mg tablet,delayed release (Adult Aspirin Regimen) 81 mg PO DAILY 07/10/23 [History Confirmed 08/28/24 Last Taken 01/12/24] bisacodyl 5 mg tablet 5 mg PO DAILY 07/10/23 [History Confirmed 08/28/24 Last Taken 01/12/24] citalopram 20 mg tablet 10 mg PO BEDTIME 07/10/23 [History Confirmed 08/28/24 Last Taken 01/12/24] famotidine 20 mg tablet 20 mg PO DAILY 07/10/23 [History Confirmed 08/28/24 Last Taken 01/12/24] lisinopril 20 mg tablet 20 mg PO DAILY 07/10/23 [History Confirmed 08/28/24 Last Taken 01/12/24] methocarbamol 750 mg tablet 750 mg PO Q8H PRN muscle spasm 07/10/23 [History Confirmed 08/28/24 Last Taken 01/12/24] acetaminophen 325 mg tablet 650 mg PO Q6H PRN pain 01/13/24 [History Confirmed 08/28/24 Last Taken 01/12/24] atorvastatin 20 mg tablet 20 mg PO DAILY 01/13/24 [History Confirmed 08/28/24 Last Taken 01/12/24] ondansetron 4 mg disintegrating tablet 4 mg PO Q6H PRN nausea and/or vomiting 01/13/24 [History Confirmed 08/28/24 Last Taken 01/12/24] benzonatate 100 mg capsule 200 mg PO Q6HR PRN cough 08/28/24 [History Confirmed 08/28/24 Last Taken Unknown] loperamide 2 mg capsule (Anti-Diarrheal (loperamide)) 2 mg PO Q1HR PRN diarrhea 08/28/24 [History Confirmed 08/28/24 Last Taken Unknown] ondansetron HCl 4 mg tablet 4 mg PO Q6H PRN nausea 08/28/24 [History Confirmed 08/28/24 Last Taken Unknown] tamsulosin 0.4 mg capsule 0.4 mg PO BEDTIME 08/28/24 [History Confirmed 08/28/24 Last Taken Unknown] Home Acetaminophen (Acetaminophen 325 Mg Tablet) 650 mg PO Q4H PRN PRN Reason: Mild Pain Albuterol/Ipratropium (Ipratropium/Albuterol Vial.Neb) 3 ml NEB RTQ4H PRN PRN Reason: Wheezing Aspirin (Aspirin 81 Mg Tablet.Dr) 81 mg PO DAILY PORFIRIO Atorvastatin Calcium (Atorvastatin Calcium 20 Mg Tablet) 20 mg PO DAILY PORFIRIO Azithromycin (Azithromycin 250 Mg Tablet) 500 mg PO DAILY PORFIRIO Stop: 08/30/24 22:00 Benzonatate (Benzonatate 100 Mg Capsule) 100 mg PO TID PRN PRN Reason: Cough Citalopram Hydrobromide (Citalopram Hydrobromide 20 Mg Tablet) 10 mg PO BEDTIME PORFIRIO Famotidine (Famotidine 20 Mg Tablet) 20 mg PO DAILY PORFIRIO Guaifenesin/Dextromethorphan (Guaifenesin/Dextromethorphan 200/20 Mg/10 Ml Cup) 10 ml PO Q4H PRN PRN Reason: Cough CEFTRIAXONE/D5W 1 GM PREMIX (Rocephin 1 Gm/50 Ml D5w) 1 gm in 50 mls @ 100 mls/hr IV DAILY PORFIRIO Stop: 09/01/24 08:59 Methylprednisolone Sodium Succinate (Methylprednisolone Sod Succ/Pf 40 Mg/Ml Vial) 40 mg IVP Q8HR PORFIRIO Non-Formulary Medication (Methocarbamol) 750 mg PO Q8H PRN PRN Reason: Pain Non-Formulary Medication (Bisacodyl) 5 mg PO DAILY PORFIRIO Ondansetron HCl (Ondansetron Hcl/Pf 4 Mg/2 Ml Sdv) 4 mg IVP Q6H PRN PRN Reason: Nausea / Vomiting Sodium Chloride (0.9% Sodium Chloride 10 Ml Disp.Syrin) 1 syr IVF PRN PRN PRN Reason: To flush IV Tamsulosin HCl (Tamsulosin Hcl 0.4 Mg Cap.Er.24h) 0.4 mg PO BEDTIME PORFIRIO Discontinued Medications Sodium Chloride (Sodium Chloride) 500 mls @ 500 mls/hr IV BOLUS ONE Stop: 08/28/24 13:43 Last Infusion: 08/28/24 14:29 Dose: Infused Sodium Chloride (Sodium Chloride) 500 mls @ 500 mls/hr IV BOLUS ONE Stop: 08/28/24 14:23 Last Infusion: 08/28/24 15:58 Dose: Infused CEFTRIAXONE/D5W 1 GM PREMIX (Rocephin 1 Gm/50 Ml D5w) 1 gm in 50 mls @ 100 mls/hr IV ONCE ONE Stop: 08/28/24 14:05 Last Admin: 08/28/24 14:07 Dose: 100 mls/hr Azithromycin 500 mg/ Sodium (Chloride) 250 mls @ 250 mls/hr IV ONCE ONE Stop: 08/28/24 14:35 Last Admin: 08/28/24 14:33 Dose: 250 mls/hr Lactated Ringer's (Lactated Ringers) 1,000 mls @ 1,000 mls/hr IV BOLUS ONE Stop: 08/28/24 15:27 Lactated Ringer's (Lactated Ringers) 1,000 mls @ 500 mls/hr IV BOLUS ONE Stop: 08/28/24 16:27 Lactated Ringer's (Lactated Ringers) 500 mls @ 500 mls/hr IV BOLUS ONE Stop: 08/28/24 16:26 Ondansetron HCl (Ondansetron Hcl/Pf 4 Mg/2 Ml Sdv) 4 mg IVP ONCE STA Stop: 08/28/24 12:45 Last Admin: 08/28/24 13:30 Dose: 4 mg Opioid Naive vs. Tolerant Does Patient Take Opioids?: No Is Patient Opioid Naive?: Yes What is Opioid Naive?: *Opioid Naive implies the patient is not already taking opioids or not chronically receiving opioids on a daily basis. *PRN dosing is not "usually" associated with tolerance. *Patients are at higher risk of over-sedation and aspiration. Is Patient Opioid Tolerant?: No What is Opioid Tolerant?: *Opioid Tolerance implies less than the expected response to an opioid. *Acquired tolerance is defined by the patient taking 60mg of oral morphine daily (or equianalgesic dose of another opioid) for 1 week or more. *Often associated with chronic pain. *May take more than usual dose to achieve desired pain control. Review of Systems Constitutional: Reports Fatigue and Weakness; Denies Fever Cardiovascular: Denies Chest pain, Chest Pressure or Edema Respiratory: Reports Cough and Shortness of air Gastrointestinal: Denies Nausea, Vomiting, Diarrhea, Abdominal pain or Melena Genitourinary: Denies Dysuria or Hematuria Dermatologic: Denies Rashes Neurological: Denies Headache or Dizziness Physical examination Most Recent Vital Signs: Most Recent Vital Signs Temperature 97.2 F L 08/28/24 12:27 Temperature Source Infrared 08/28/24 12:27 Pulse Rate 71 08/28/24 12:27 Respiratory Rate 16 08/28/24 12:27 Blood Pressure 100/52 L 08/28/24 12:27 O2 Sat by Pulse Oximetry 90 L 08/28/24 12:27 Oxygen Flow Rate 6 08/28/24 13:20 Height 5 ft 11 in 08/28/24 12:27 Weight 86.8 kg 08/28/24 12:27 Telemetry Heart Rate 85 05/09/24 09:30 Appearance: Positive No Apparent Distress and Alert and Oriented x3 Skin: Negative Rashes HEENT: Positive Normocephalic and Atraumatic; Negative Oral Mucous Moist Neck: Positive Supple and Midline Trachea Chest/Lungs: Positive Symmetrical With Equal Breath Sounds and Other (+nonlabored, able to speak full sentences, on 6L, no tripoding, airway intact, pt coughs during respiratory exam ) Heart: Positive RRR GI/: Positive Soft, Nontender, Bowel Sounds Normal and No Distention Neurological: Positive Cranial Nerves Intact, Alert, Oriented and Other (+generalized weakness ) Psychiatric: Positive Oriented x4, Appropriate Mood and Appropriate Affect Labs This Visit Labs This Visit: Labs This Visit 08/28/24 08/28/24 12:53 12:54 WBC 17.98 H RBC 5.50 Hgb 16.4 Hct 51.5 MCV 93.6 MCH 29.8 MCHC 31.8 RDW Coeff of Meryl 13.2 Plt Count 174 Immature Gran % (Auto) 0.9 Neut % (Auto) 86.6 H Lymph % (Auto) 8.4 L [place] % (Auto) 3.9 Eos % (Auto) 0.1 Baso % (Auto) 0.1 Neut # (Auto) 15.6 H Lymph # (Auto) 1.5 [place] # (Auto) 0.7 Eos # (Auto) 0.0 Baso # (Auto) 0.0 Immature Gran # (Auto) 0.2 Sodium 138.7 Potassium 3.94 Chloride 97.2 L Carbon Dioxide 30.5 H Anion Gap 14.94 BUN 21.5 H Creatinine 1.22 H Estimated GFR (MDRD) 57.00 BUN/Creatinine Ratio 17.62 Glucose 153.0 H Lactic Acid 3.56 H Calcium 9.12 Total Bilirubin 1.46 H AST 55.8 ALT 43.1 Alkaline Phosphatase 77.2 Total Protein 7.47 Albumin 4.43 Globulin 3.04 Albumin/Globulin Ratio 1.45 Influ A Molecular Assay Negative by naat Influ B Molecular Assay Negative by naat RSV Antigen Negative by naat SARS CoV-2 RNA Rapid TY Negative Imaging Imaging: EXAM: CHEST ONE-VIEW HISTORY: Cough and shortness of breath COMPARISON: AP chest from 07/10/2023 FINDINGS: The cardiomediastinal silhouette is normal. The pulmonary vasculature is normal. Bibasilar infiltrates are new since the prior. No pneumothoraces or pleural effusions. IMPRESSION: 1. Bibasilar pneumonia Review Statement Review Statement: I have independently reviewed and interpreted the labs/EKGs/imaging that were ordered by the ER provider. I have reviewed all outside records that are available currently in our EMR including imaging/notes/labs from previous visits. Plan Plan: 1. Community acquired pneumonia, bilateral - Cont rocephin, azith, duonebs, add steroids. Strep pnemo, legionella, mrsa ordered. 2. Sepsis due to CAP - Trend lactic, procal elevated. Give 30 ml/kg of fluids for a total of 2500, no hx of CHF noted. Pt appears dry. Abx started in ER. 3. Acute hypoxic respiratory failure - Plan as above, wean o2 when able 4. Hypertension - BP mildly low in ER, will hold antihypertensives 5. hyperlipidemia - Cont home meds 6. BPH - Cont home meds DVT Prophylaxis: Ambulation Time Spent: Greater than 80 minutes spent with patient, 50% of the time spent with this patient was devoted to counseling and coordination of care. [facility] minutes spent discussing advance care planning. DNR Admit to: Inpatient Discussed Plan of Care with Dr. Belem Sanchez. Medications Medication Orders: Medications Ordered Category Date Time Status 0.9 % Sodium Chloride [Saline Flush] Meds 08/28/24 12:44 Active 1 syr IVF PRN PRN Azithromycin Inj [Zithromax] 500 mg Meds 08/28/24 13:36 Active 0.9 % Sodium Chloride [Sodium Chloride] 250 ml IV ONCE Sodium Chloride 0.9% [Sodium Chloride] 500 ml Meds 08/28/24 13:24 Active IV BOLUS
[2024-08-28] MEDS ORDERED: ZOFRAN 4 MG/2 ML IVP PRN (14:28)
[2024-08-28] MEDS ORDERED: TYLENOL PO PRN (14:28)
[2024-08-28] MEDS: ZITHROMAX 500 MG in SODIUM CHLORIDE 250 ML IV ONE (14:33)
[2024-08-28] MEDS ORDERED: ROBITUSSIN DM SYRUP PO PRN (15:52)
[2024-08-28 16:29] VITALS: BMI 25.8
[2024-08-28] MEDS ORDERED: NON-FORMULARY MEDICATION (Methocarbamol 750 mg tablet) PO PRN (16:42)
[2024-08-28] MEDS: LACTATED RINGERS 1,000 ML IV ONE ×2 (16:56→17:00)
[2024-08-28] MEDS ORDERED: ROBAXIN PO PRN (16:56)
[2024-08-28] MEDS: SOLU-MEDROL 40 MG IVP SCH (16:58)
[2024-08-28] MEDS: TESSALON PERLES PO PRN (16:59)
[2024-08-28] MEDS: LACTATED RINGERS 500 ML IV ONE (19:25)
[2024-08-28] MEDS: CELEXA PO SCH (20:41)
[2024-08-28] MEDS: FLOMAX PO SCH (20:41)
[2024-08-29 05:10] LABS: BASOPHILS % (AUTO) 0.1 % (0.0-3.0); IMMATURE GRANULOCYTE # (AUTO) 0.1 (0.0-1.0); IMMATURE GRANULOCYTE % (AUTO) 0.3 % (0.0-5.0); LYMPHOCYTES # (AUTO) 0.8 K/uL (0.60-3.4); LYMPHOCYTES % (AUTO) 4.3 (10.0-50.0); MEAN CORPUSCULAR HEMOGLOBIN 30.1 pg (27.0-31.0); MEAN CORPUSCULAR HGB CONC 32.4 (31.8-35.4); MEAN CORPUSCULAR VOLUME 92.9 fl (80.0-94.0); MONOCYTES # (AUTO) 0.5 K/uL (0.4-2.0); MONOCYTES % (AUTO) 2.5 (0-10); NEUTROPHILS # (AUTO) 17.4 K/ul (2.0-6.9); NEUTROPHILS % (AUTO) 92.8 % (42.2-75.2); RDW COEFFICIENT OF VARIATION 13.2 % (11.6-14.8); RED BLOOD COUNT 4.39 10^6/ul (4.70-6.10); WHITE BLOOD COUNT 18.74 K/ul (4.2-10.2)
[2024-08-29 05:20] LABS: HEMATOCRIT 40.8 % (42.0-52.0); HEMOGLOBIN 13.2 g/dl (14.0-18.0); PLATELET COUNT 114 10^3/uL (140-440)
[2024-08-29 05:24] LABS: ALANINE AMINOTRANSFERASE 41.8 U/L (0-50); ALBUMIN 3.09 g/dL (3.5-5.0); ALKALINE PHOSPHATASE 46.2 U/L (56-119); ASPARTATE AMINO TRANSFERASE 43.8 U/L (17-59); BILIRUBIN,TOTAL 1.57 mg/dL (0.2-1.3); BLOOD UREA NITROGEN 27.5 mg/dL (9-20); CALCIUM 8.18 mg/dL (8.4-10.2); CARBON DIOXIDE 25.1 mmol/L (22-30.0); CHLORIDE 102.4 mmol/L (98-107); CREATININE 0.98 mg/dL (0.60-1.10); GLUCOSE 184.7 mg/dL (74-106); POTASSIUM 4.59 mmol/L (3.5-5.1); SODIUM 134.8 mmol/L (134.5-145); TOTAL PROTEIN 5.52 g/dL (6.3-8.2)
[2024-08-29] MEDS: ASPIRIN EC PO SCH (05:37)
[2024-08-29 07:59] LABS: BILIRUBIN,URINE Negative (NEGATIVE); CLARITY,URINE Clear (CLEAR); COLOR,URINE Yellow (YELLOW); GLUCOSE, URINE (UA) Negative (NEGATIVE); KETONES,URINE Trace (NEGATIVE); LEUKOCYTE ESTERASE ,URINE Negative (NEGATIVE); NITRITE,URINE Negative (NEGATIVE); PH,URINE 5.5 (5-9); PROTEIN,URINE Negative (NEGATIVE); URINE, BLOOD Negative (NEGATIVE); UROBILINOGEN,URINE 0.2 (0.2)
[2024-08-29] MEDS: ROCEPHIN 1 GM/50 ML D5W 1 GM/50 ML BAG IV SCH (09:49)
[2024-08-29] MEDS: LIPITOR PO SCH (09:50)
[2024-08-29] MEDS: ZITHROMAX PO SCH (09:50)
[2024-08-29] MEDS: DULCOLAX PO SCH (10:19)
[2024-08-29] MEDS: PEPCID PO SCH (10:20)
[2024-08-29] MEDS: LACTATED RINGERS 1,000 ML IV SCH (10:20)
--- NOTE | 2024-08-29 11:43 | PCM.PROG ---
Date/Time Seen Date Seen by Provider: 08/29/24 Time Seen by Provider: 08:30 Provider Provider[facility] Chief Complaint Chief Complaint: BIBASILAR PNUEMONIA, SEPSIS, RESP FAILURE Subjective Subjective: Patient states he's feeling somewhat better today. Denies complaints. Non productive cough. Still requiring oxygen. Objective Appearance: Positive No Apparent Distress and Alert and Oriented x3 Chest/Lungs: Positive Clear to Auscultation Bilaterally; Negative Rales, Rhonci or Wheezes Heart: Positive RRR GI/: Positive Soft, Nontender, Bowel Sounds Normal and No Distention Neurological: Positive Cranial Nerves Intact, Alert, Oriented and Other (+generalized weakness ) Vital Signs Vital Signs: Vital Signs: Last 24 Hours 08/28/24 12:27 08/28/24 13:20 08/28/24 16:20 Temperature 97.2 F L 99.6 F Temperature Source Infrared Oral Pulse Rate 71 94 Respiratory Rate 16 18 Blood Pressure 100/52 L Blood Pressure Mean Blood Pressure Left Arm 141/81 Blood Pressure Location Blood Pressure Position Sitting O2 Sat by Pulse Oximetry 90 L 96 Oxygen Delivery Method Nasal Cannula Oxygen Flow Rate 6 6 Height 5 ft 11 in 5 ft 11 in Weight 86.8 kg 84 kg Telemetry Type Telemetry Monitoring Telemetry Heart Rate Telemetry SPO2 EKG SC Interval EKG QRS Interval Telemetry Strip Reading 08/28/24 16:20 08/28/24 18:00 08/28/24 19:00 Temperature 98 F Temperature Source Temporal Artery Scan Pulse Rate 96 Respiratory Rate 24 H Blood Pressure 110/65 Blood Pressure Mean 80 Blood Pressure Left Arm Blood Pressure Location Right Arm Blood Pressure Position Sitting O2 Sat by Pulse Oximetry 97 Oxygen Delivery Method Room Air Nasal Cannula Oxygen Flow Rate 6 6 Height Weight Telemetry Type Bedside Monitor Telemetry Monitoring Continues Telemetry Heart Rate 87 Telemetry SPO2 98 EKG SC Interval 0.20 EKG QRS Interval 0.06 Telemetry Strip Reading sr 08/28/24 20:00 08/28/24 21:25 08/28/24 21:53 Temperature 98 F Temperature Source Temporal Artery Scan Pulse Rate 79 Respiratory Rate 22 H Blood Pressure 106/62 Blood Pressure Mean 76 Blood Pressure Left Arm Blood Pressure Location Left Arm Blood Pressure Position Supine O2 Sat by Pulse Oximetry 96 96 Oxygen Delivery Method Nasal Cannula Nasal Cannula Nasal Cannula Oxygen Flow Rate 6 4 6 Height Weight Telemetry Type Telemetry Monitoring Telemetry Heart Rate Telemetry SPO2 EKG SC Interval EKG QRS Interval Telemetry Strip Reading 08/29/24 01:00 08/29/24 02:00 08/29/24 05:05 Temperature 98.1 F Temperature Source Oral Pulse Rate 79 Respiratory Rate 18 Blood Pressure 130/71 Blood Pressure Mean 90 Blood Pressure Left Arm Blood Pressure Location Left Arm Blood Pressure Position Supine O2 Sat by Pulse Oximetry 98 93 L Oxygen Delivery Method Nasal Cannula Nasal Cannula Oxygen Flow Rate 4 4 Height Weight Telemetry Type Bedside Monitor Telemetry Monitoring Continues Telemetry Heart Rate 77 Telemetry SPO2 100 EKG SC Interval 0.17 EKG QRS Interval 0.06 Telemetry Strip Reading SR 08/29/24 05:42 08/29/24 07:00 08/29/24 08:00 Temperature 98.1 F Temperature Source Temporal Artery Scan Pulse Rate 71 Respiratory Rate 18 Blood Pressure 100/54 L Blood Pressure Mean 69 Blood Pressure Left Arm Blood Pressure Location Left Arm Blood Pressure Position O2 Sat by Pulse Oximetry 99 Oxygen Delivery Method Nasal Cannula Nasal Cannula Oxygen Flow Rate 4 3 Height Weight Telemetry Type Remote Telemetry Telemetry Monitoring Continues Telemetry Heart Rate 70 Telemetry SPO2 98 EKG SC Interval 0.13 EKG QRS Interval 0.05 L Telemetry Strip Reading SR 08/29/24 09:59 08/29/24 10:00 Temperature 98.2 F Temperature Source Oral Pulse Rate 72 Respiratory Rate 16 Blood Pressure 91/46 L Blood Pressure Mean 61 Blood Pressure Left Arm Blood Pressure Location Right Arm Blood Pressure Position O2 Sat by Pulse Oximetry 98 99 Oxygen Delivery Method Nasal Cannula Room Air Oxygen Flow Rate 3 Height Weight Telemetry Type Telemetry Monitoring Telemetry Heart Rate Telemetry SPO2 EKG SC Interval EKG QRS Interval Telemetry Strip Reading Lab Results Lab Results: Lab Results: Last 24 Hours 08/29/24 08/29/24 08/28/24 05:55 05:05 14:37 WBC 18.74 H RBC 4.39 L Hgb 13.2 L D Hct 40.8 L D MCV 92.9 MCH 30.1 MCHC 32.4 RDW Coeff of Meryl 13.2 Plt Count 114 L D Immature Gran % (Auto) 0.3 Neut % (Auto) 92.8 H Lymph % (Auto) 4.3 L [place] % (Auto) 2.5 Eos % (Auto) 0.0 Baso % (Auto) 0.1 Neut # (Auto) 17.4 H Lymph # (Auto) 0.8 [place] # (Auto) 0.5 Eos # (Auto) 0.0 Baso # (Auto) 0.0 Immature Gran # (Auto) 0.1 Sodium 134.8 Potassium 4.59 Chloride 102.4 Carbon Dioxide 25.1 Anion Gap 11.89 BUN 27.5 H Creatinine 0.98 Estimated GFR (MDRD) 73.00 BUN/Creatinine Ratio 28.06 Glucose 184.7 H Lactic Acid 2.75 H 2.26 H Calcium 8.18 L Total Bilirubin 1.57 H AST 43.8 ALT 41.8 Alkaline Phosphatase 46.2 L D Total Protein 5.52 L Albumin 3.09 L Globulin 2.43 Albumin/Globulin Ratio 1.27 Procalcitonin 0.33 H Urine Color Yellow Urine Clarity Clear Urine pH 5.5 Ur Specific [place] 1.025 Urine Protein Negative Urine Glucose (UA) Negative Urine Ketones Trace H Urine Blood Negative Urine Nitrite Negative Urine Bilirubin Negative Urine Urobilinogen 0.2 Ur Leukocyte Esterase Negative Influ A Molecular Assay Influ B Molecular Assay RSV Antigen SARS CoV-2 RNA Rapid TY 08/28/24 08/28/24 12:54 12:53 WBC 17.98 H RBC 5.50 Hgb 16.4 Hct 51.5 MCV 93.6 MCH 29.8 MCHC 31.8 RDW Coeff of Meryl 13.2 Plt Count 174 Immature Gran % (Auto) 0.9 Neut % (Auto) 86.6 H Lymph % (Auto) 8.4 L [place] % (Auto) 3.9 Eos % (Auto) 0.1 Baso % (Auto) 0.1 Neut # (Auto) 15.6 H Lymph # (Auto) 1.5 [place] # (Auto) 0.7 Eos # (Auto) 0.0 Baso # (Auto) 0.0 Immature Gran # (Auto) 0.2 Sodium 138.7 Potassium 3.94 Chloride 97.2 L Carbon Dioxide 30.5 H Anion Gap 14.94 BUN 21.5 H Creatinine 1.22 H Estimated GFR (MDRD) 57.00 BUN/Creatinine Ratio 17.62 Glucose 153.0 H Lactic Acid 3.56 H Calcium 9.12 Total Bilirubin 1.46 H AST 55.8 ALT 43.1 Alkaline Phosphatase 77.2 Total Protein 7.47 Albumin 4.43 Globulin 3.04 Albumin/Globulin Ratio 1.45 Procalcitonin Urine Color Urine Clarity Urine pH Ur Specific [place] Urine Protein Urine Glucose (UA) Urine Ketones Urine Blood Urine Nitrite Urine Bilirubin Urine Urobilinogen Ur Leukocyte Esterase Influ A Molecular Assay Negative by naat Influ B Molecular Assay Negative by naat RSV Antigen Negative by naat SARS CoV-2 RNA Rapid TY Negative Additional Comments Additional Comments: I have independently reviewed and interpreted the labs/EKGs/imaging ordered during this hospital stay. I have reviewed outside records that are available in our EMR that pertain to medical stay including imaging/notes/labs from previous visits. Active Medications Active Medications: Medications Generic Name Dose Route Start Last Admin Trade Name Freq PRN Reason Stop Dose Admin Acetaminophen 650 mg 08/28/24 14:28 Acetaminophen 325 Mg Tablet PO Q4H PRN Mild Pain Albuterol/Ipratropium 3 ml 08/28/24 14:35 Ipratropium/Albuterol Vial.Neb NEB RTQ4H PRN Wheezing Aspirin 81 mg 08/29/24 06:00 08/29/24 05:37 Aspirin 81 Mg Tablet. PO 81 mg QDAC2 PORFIRIO Administration Atorvastatin Calcium 20 mg 08/29/24 09:00 08/29/24 09:50 Atorvastatin Calcium 20 Mg Tablet PO 20 mg DAILY PORFIRIO Administration Azithromycin 500 mg 08/29/24 09:00 08/29/24 09:50 Azithromycin 250 Mg Tablet PO 08/30/24 22:00 500 mg DAILY PORFIRIO Administration Benzonatate 100 mg 08/28/24 15:52 08/28/24 16:59 Benzonatate 100 Mg Capsule PO 100 mg TID PRN Administration Cough Bisacodyl 5 mg 08/29/24 09:00 08/29/24 10:19 Bisacodyl 5 Mg Tablet. PO 5 mg DAILY PORFIRIO Administration Citalopram Hydrobromide 10 mg 08/28/24 21:00 08/28/24 20:41 Citalopram Hydrobromide 20 Mg Tablet PO 10 mg BEDTIME PORFIRIO Administration Famotidine 20 mg 08/29/24 09:00 08/29/24 10:20 Famotidine 20 Mg Tablet PO 20 mg QDAC2 PORFIRIO Administration Guaifenesin/Dextromethorphan 10 ml 08/28/24 15:52 Guaifenesin/Dextromethorphan 200/20 Mg/10 Ml Cup PO Q4H PRN Cough CEFTRIAXONE/D5W 1 GM PREMIX 1 gm in 50 mls @ 100 mls/hr 08/29/24 09:00 08/29/24 09:49 Rocephin 1 Gm/50 Ml D5w IV 09/01/24 08:59 100 mls/hr DAILY PORFIRIO Administration Lactated Ringer's 1,000 mls @ 75 mls/hr 08/29/24 09:00 08/29/24 10:20 Lactated Ringers IV 75 mls/hr .[id number] PORFIRIO Administration Methocarbamol 750 mg 08/28/24 16:56 Methocarbamol 500 Mg Tablet PO Q8H PRN Pain Methylprednisolone Sodium Succinate 40 mg 08/28/24 15:50 08/29/24 06:03 Methylprednisolone Sod Succ/Pf 40 Mg/Ml Vial IVP 40 mg Q8HR PORFIRIO Administration Ondansetron HCl 4 mg 08/28/24 14:28 Ondansetron Hcl/Pf 4 Mg/2 Ml Sdv IVP Q6H PRN Nausea / Vomiting Sodium Chloride 1 syr 08/28/24 12:44 08/29/24 06:04 0.9% Sodium Chloride 10 Ml Disp.Syrin IVF 1 syr PRN PRN Administration To flush IV Tamsulosin HCl 0.4 mg 08/28/24 21:00 08/28/24 20:41 Tamsulosin Hcl 0.4 Mg Cap.Er.24h PO 0.4 mg BEDTIME PORFIRIO Administration Plan Plan: 1. Community acquired pneumonia, bilateral - Cont rocephin, azith, duonebs, and steroids. Strep pnemo, legionella, mrsa ordered. Cont fluids. 2. Sepsis due to CAP - Trend lactic, procal elevated. Blood cultures pending. 3. Acute hypoxic respiratory failure - Improved. Plan as above, wean o2 when able 4. Hypertension - BP mildly low in ER, will hold antihypertensives 5. hyperlipidemia - Cont home meds 6. BPH - Cont home meds DVT Prophylaxis: Lovenox Review Statement Review Statement: I have personally discussed and reviewed the patient's visit/currently labs/imaging/decision making with Dr. Sanchez, my supervising attending. Greater that 50 minutes spent with patient, 50% of the time spent with this patient was devoted to counseling and coordination of care.
[2024-08-29] MEDS: LOVENOX SUBCUT SCH (12:54)
[2024-08-30 05:19] LABS: BASOPHILS % (AUTO) 0.1 % (0.0-3.0); HEMATOCRIT 38.1 % (42.0-52.0); HEMOGLOBIN 12.3 g/dl (14.0-18.0); IMMATURE GRANULOCYTE # (AUTO) 0.1 (0.0-1.0); IMMATURE GRANULOCYTE % (AUTO) 0.6 % (0.0-5.0); LYMPHOCYTES # (AUTO) 0.8 K/uL (0.60-3.4); LYMPHOCYTES % (AUTO) 4.3 (10.0-50.0); MEAN CORPUSCULAR HEMOGLOBIN 29.9 pg (27.0-31.0); MEAN CORPUSCULAR HGB CONC 32.3 (31.8-35.4); MEAN CORPUSCULAR VOLUME 92.5 fl (80.0-94.0); MONOCYTES # (AUTO) 0.5 K/uL (0.4-2.0); MONOCYTES % (AUTO) 2.3 (0-10); NEUTROPHILS # (AUTO) 17.7 K/ul (2.0-6.9); NEUTROPHILS % (AUTO) 92.7 % (42.2-75.2); PLATELET COUNT 124 10^3/uL (140-440); RDW COEFFICIENT OF VARIATION 13.2 % (11.6-14.8); RED BLOOD COUNT 4.12 10^6/ul (4.70-6.10); WHITE BLOOD COUNT 19.15 K/ul (4.2-10.2)
[2024-08-30 05:33] LABS: ALANINE AMINOTRANSFERASE 38.4 U/L (0-50); ALBUMIN 3.11 g/dL (3.5-5.0); ALKALINE PHOSPHATASE 51.3 U/L (56-119); ASPARTATE AMINO TRANSFERASE 38.5 U/L (17-59); BILIRUBIN,TOTAL 1.15 mg/dL (0.2-1.3); BLOOD UREA NITROGEN 28.9 mg/dL (9-20); CALCIUM 8.34 mg/dL (8.4-10.2); CREATININE 0.8 mg/dL (0.60-1.10); GLUCOSE 162.3 mg/dL (74-106); POTASSIUM 4.62 mmol/L (3.5-5.1); SODIUM 135.3 mmol/L (134.5-145); TOTAL PROTEIN 5.64 g/dL (6.3-8.2)
--- NOTE | 2024-08-30 11:52 | PCM.PROG ---
Date/Time Seen Date Seen by Provider: 08/30/24 Time Seen by Provider: 09:40 Provider Provider: Siddhartha VAZQUEZ, [facility] Chief Complaint Chief Complaint: BIBASILAR PNUEMONIA, SEPSIS, RESP FAILURE Subjective Subjective: Patient reporting feeling better today. No fevers or chest pain. Denies complaints today. Reports eating and drinking well. Remains on 3L of supplemental oxygen. Objective Appearance: Positive No Apparent Distress and Alert and Oriented x3 Chest/Lungs: Positive Clear to Auscultation Bilaterally; Negative Rales, Rhonci or Wheezes Heart: Positive RRR GI/: Positive Soft, Nontender, Bowel Sounds Normal and No Distention Musculoskeletal: Positive Other (pedal pules palpable bilaterally, no edema, no clubbing or cyanosis. ) Neurological: Positive Cranial Nerves Intact, Alert, Oriented and Other (+generalized weakness ) Vital Signs Vital Signs: Vital Signs: Last 24 Hours 08/29/24 13:00 08/29/24 14:00 08/29/24 14:00 Temperature 97.7 F Temperature Source Temporal Artery Scan Pulse Rate 78 Respiratory Rate 20 Blood Pressure 102/49 L Blood Pressure Mean 66 Blood Pressure Location Left Arm Blood Pressure Position O2 Sat by Pulse Oximetry 97 97 Oxygen Delivery Method Nasal Cannula Room Air Oxygen Flow Rate 3 Telemetry Type Remote Telemetry Telemetry Monitoring Continues Telemetry Heart Rate 82 Telemetry SPO2 95 EKG ME Interval 0.13 EKG QRS Interval 0.05 L Telemetry Strip Reading SR 08/29/24 18:00 08/29/24 19:00 08/29/24 19:48 Temperature 98.2 F Temperature Source Temporal Artery Scan Pulse Rate 78 Respiratory Rate 19 Blood Pressure 134/64 Blood Pressure Mean 87 Blood Pressure Location Left Arm Blood Pressure Position Sitting O2 Sat by Pulse Oximetry 97 96 Oxygen Delivery Method Nasal Cannula Nasal Cannula Oxygen Flow Rate 3 3 Telemetry Type Remote Telemetry Telemetry Monitoring Continues Telemetry Heart Rate 81 Telemetry SPO2 98 EKG ME Interval 0.19 EKG QRS Interval 0.07 Telemetry Strip Reading SR 08/29/24 20:00 08/29/24 21:57 08/30/24 01:00 Temperature 98.2 F Temperature Source Temporal Artery Scan Pulse Rate 69 Respiratory Rate 20 Blood Pressure 118/61 Blood Pressure Mean 80 Blood Pressure Location Left Arm Blood Pressure Position Supine O2 Sat by Pulse Oximetry 97 Oxygen Delivery Method Nasal Cannula Nasal Cannula Oxygen Flow Rate 3 3 Telemetry Type Remote Telemetry Telemetry Monitoring Continues Telemetry Heart Rate 66 Telemetry SPO2 98 EKG ME Interval 0.20 EKG QRS Interval 0.07 Telemetry Strip Reading SR 08/30/24 02:00 08/30/24 05:10 08/30/24 05:15 Temperature 98.2 F 97.9 F Temperature Source Temporal Artery Scan Temporal Artery Scan Pulse Rate 67 63 Respiratory Rate 15 18 Blood Pressure 128/61 124/64 Blood Pressure Mean 83 84 Blood Pressure Location Left Arm Left Arm Blood Pressure Position Supine Supine O2 Sat by Pulse Oximetry 99 97 97 Oxygen Delivery Method Nasal Cannula Nasal Cannula Nasal Cannula Oxygen Flow Rate 3 3 3 Telemetry Type Telemetry Monitoring Telemetry Heart Rate Telemetry SPO2 EKG ME Interval EKG QRS Interval Telemetry Strip Reading 08/30/24 07:00 08/30/24 07:32 08/30/24 10:00 Temperature Temperature Source Pulse Rate Respiratory Rate Blood Pressure Blood Pressure Mean Blood Pressure Location Blood Pressure Position O2 Sat by Pulse Oximetry 99 Oxygen Delivery Method Nasal Cannula Nasal Cannula Oxygen Flow Rate 3 2 Telemetry Type Remote Telemetry Telemetry Monitoring Continues Telemetry Heart Rate 62 Telemetry SPO2 98 EKG ME Interval 0.14 EKG QRS Interval 0.07 Telemetry Strip Reading SR 08/30/24 10:26 Temperature Temperature Source Pulse Rate Respiratory Rate Blood Pressure Blood Pressure Mean Blood Pressure Location Blood Pressure Position O2 Sat by Pulse Oximetry 99 Oxygen Delivery Method Nasal Cannula Oxygen Flow Rate 3 Telemetry Type Telemetry Monitoring Telemetry Heart Rate Telemetry SPO2 EKG ME Interval EKG QRS Interval Telemetry Strip Reading Lab Results Lab Results: Lab Results: Last 24 Hours 08/30/24 05:06 WBC 19.15 H RBC 4.12 L Hgb 12.3 L Hct 38.1 L MCV 92.5 MCH 29.9 MCHC 32.3 RDW Coeff of Meryl 13.2 Plt Count 124 L Immature Gran % (Auto) 0.6 Neut % (Auto) 92.7 H Lymph % (Auto) 4.3 L [place] % (Auto) 2.3 Eos % (Auto) 0.0 Baso % (Auto) 0.1 Neut # (Auto) 17.7 H Lymph # (Auto) 0.8 [place] # (Auto) 0.5 Eos # (Auto) 0.0 Baso # (Auto) 0.0 Immature Gran # (Auto) 0.1 Sodium 135.3 Potassium 4.62 Chloride 102.0 Carbon Dioxide 28.0 Anion Gap 9.92 BUN 28.9 H Creatinine 0.80 Estimated GFR (MDRD) 92.00 BUN/Creatinine Ratio 36.12 Glucose 162.3 H Calcium 8.34 L Total Bilirubin 1.15 AST 38.5 ALT 38.4 Alkaline Phosphatase 51.3 L Total Protein 5.64 L Albumin 3.11 L Globulin 2.53 Albumin/Globulin Ratio 1.22 Additional Comments Additional Comments: I have independently reviewed and interpreted the labs/EKGs/imaging ordered during this hospital stay. I have reviewed outside records that are available in our EMR that pertain to medical stay including imaging/notes/labs from previous visits. Active Medications Active Medications: Medications Generic Name Dose Route Start Last Admin Trade Name Freq PRN Reason Stop Dose Admin Acetaminophen 650 mg 08/28/24 14:28 Acetaminophen 325 Mg Tablet PO Q4H PRN Mild Pain Albuterol/Ipratropium 3 ml 08/28/24 14:35 Ipratropium/Albuterol Vial.Neb NEB RTQ4H PRN Wheezing Aspirin 81 mg 08/29/24 06:00 08/30/24 05:09 Aspirin 81 Mg Tablet. PO 81 mg QDAC2 PORFIRIO Administration Atorvastatin Calcium 20 mg 08/29/24 09:00 08/30/24 08:20 Atorvastatin Calcium 20 Mg Tablet PO 20 mg DAILY PORFIRIO Administration Azithromycin 500 mg 08/29/24 09:00 08/30/24 08:21 Azithromycin 250 Mg Tablet PO 08/30/24 22:00 500 mg DAILY PORFIRIO Administration Benzonatate 100 mg 08/28/24 15:52 08/28/24 16:59 Benzonatate 100 Mg Capsule PO 100 mg TID PRN Administration Cough Bisacodyl 5 mg 08/29/24 09:00 08/30/24 08:20 Bisacodyl 5 Mg Tablet. PO 5 mg DAILY PORFIRIO Administration Citalopram Hydrobromide 10 mg 08/28/24 21:00 08/29/24 21:23 Citalopram Hydrobromide 20 Mg Tablet PO 10 mg BEDTIME PORFIRIO Administration Enoxaparin Sodium 40 mg 08/29/24 11:45 08/30/24 08:22 Enoxaparin Sodium 40 Mg/0.4 Ml Syr SUBCUT 40 mg DAILY PORFIRIO Administration Famotidine 20 mg 08/29/24 09:00 08/30/24 05:09 Famotidine 20 Mg Tablet PO 20 mg QDAC2 PORFIRIO Administration Guaifenesin/Dextromethorphan 10 ml 08/28/24 15:52 Guaifenesin/Dextromethorphan 200/20 Mg/10 Ml Cup PO Q4H PRN Cough CEFTRIAXONE/D5W 1 GM PREMIX 1 gm in 50 mls @ 100 mls/hr 08/29/24 09:00 08/30/24 08:22 Rocephin 1 Gm/50 Ml D5w IV 09/01/24 08:59 100 mls/hr DAILY PORFIRIO Administration Lactated Ringer's 1,000 mls @ 75 mls/hr 08/29/24 09:00 08/30/24 09:14 Lactated Ringers IV 75 mls/hr .[id number] PORFIRIO Administration Methocarbamol 750 mg 08/28/24 16:56 Methocarbamol 500 Mg Tablet PO Q8H PRN Pain Methylprednisolone Sodium Succinate 40 mg 08/28/24 15:50 08/30/24 05:09 Methylprednisolone Sod Succ/Pf 40 Mg/Ml Vial IVP 40 mg Q8HR PORFIRIO Administration Ondansetron HCl 4 mg 08/28/24 14:28 Ondansetron Hcl/Pf 4 Mg/2 Ml Sdv IVP Q6H PRN Nausea / Vomiting Sodium Chloride 1 syr 08/28/24 12:44 08/29/24 06:04 0.9% Sodium Chloride 10 Ml Disp.Syrin IVF 1 syr PRN PRN Administration To flush IV Tamsulosin HCl 0.4 mg 08/28/24 21:00 08/29/24 21:23 Tamsulosin Hcl 0.4 Mg Cap.Er.24h PO 0.4 mg BEDTIME PORFIRIO Administration Plan Plan: 1. Community acquired pneumonia, bilateral - Continue IV rocephin, azithroxycin, duonebs, and solumedrol. -Strep pnemo, legionella, mrsa swab pending, check sputum culture if possible - continue gentle IV hydration for now - RT following for oxygen and nebs, currently on 3L per nc, wean when possible 2. Sepsis due to CAP - Trend lactic, procalcitonin was negative - blood cultures negative x 24 hours, continue to follow - plan as above 3. Acute hypoxic respiratory failure - Improving - Plan as above, wean o2 when possible - RT following 4. Hypertension - BP mildly low in ER, will hold antihypertensives 5. hyperlipidemia - Cont home meds . 6. BPH - Cont home meds DVT Prophylaxis: Lovenox Review Statement Review Statement: I have personally discussed and reviewed the patient's visit/currently labs/imaging/decision making with Dr. Sanchez, my supervising attending. Greater that 50 minutes spent with patient, 50% of the time spent with this patient was devoted to counseling and coordination of care.
--- NOTE | 2024-08-30 11:56 | RS.PTINEVL ---
Subjective Patient information Date of Evaluation: 08/30/24 Date of Arrival on Unit: 08/28/24 Admitted From:: Retirement ([place]) Diagnosis: Bibasilar pneumonia, sepsis, respiratory failure Usual Living Arrangement: [facility]irement Home Environment: Level/No stairs Medical History: Hypertension, CVA/TIA, COPD, Dementia, Diabetes and Arthritis Medical History Comments:: BPH, depression, compression fx, hepatic failure, vertigo LATEX ALLERGY?: No Medications: see chart Subjective Information/ Patient Comments:: pt states that he is feeling better. States he would like to go for a walk. Level of function Prior to this admission, the patient could do the following:: Partially Dependent Ambulation Current Level of Function: Partially Dependent Current Equipment Used at Home: walker, shower chair, raised seat on the toilet Interventions Objective Patient Orientation: Person and Place Current Interventions: IV's, Oxygen (2 liters ) and Telemetry Range of Motion ROM Right Upper Extremity AROM: WFL's Left Upper Extremity AROM: WFL's Right Lower Extremity AROM: WFL's Left Lower Extremity AROM: WFL's Muscle Strength Muscle Strength Right Upper Extremity: Mild Weakness (grossly 4/5) Left Upper Extremity: Mild Weakness (grossly 4/5) Right Lower Extremity: Mild Weakness (hip flex 4-/5, knee flex/ext 4/5, ankle DF/PF 4/5 ) Left Lower Extremity: Mild Weakness (hip flex 4-/5, knee flex/ext 4/5, ankle DF/PF 4/5 ) Sensation Sensation Right Upper Extremity: Intact/Normal Left Upper Extremity: Intact/Normal Right Lower Extremity: Intact/Normal Left Lower Extremity: Intact/Normal Palpation Palpation Findings: None/Normal Balance Sitting Balance and Reactions Static Sitting Balance: Fair Dynamic Sitting Balance: Fair (fair-) Standing Balance and Reactions Static Standing Balance: Poor Dynamic Standing Balance: Poor Standing Equilibrium Reactions: Delayed Left and Delayed Right Standing Protective Reactions: Delayed Left and Delayed Right Functional Mobility Bed Mobility Rolling R/L: CGA Scooting: CGA Supine to Sit: CGA Transfers Sit to Stand: CGA Stand to Sit: CGA Safety Awareness Safety Awareness: Poor SHAKIR INDEX SCORE: n/a Ambulation Ambulation Assistive Device Used: Rolling Walker Orthotic/Prosthetic Device: No Distance: 80ft Assistance needed with Ambulation: CGA, 1 person assist and 2 person assist Quality of Ambulation: amb with CGA x 1 +1 for IV and O2 Gait Deviations: Forward posture, Short stride and Deviates from path Factors Affecting Ambulation: Decreased Balance, Weakness, Cognitive Status and Limited Endurance Treatment time Units charged Gait trainin Time with patient Length of Evaluation: 18 Total treatment time: 28 Patient Education Education Patient Education: Activity Modification and Education of Plan of Care Teaching Recipient: Patient Teaching Methods: Discussion Comments: discussion regarding safety with gait Assessment Assessment Problem List:: Decreased level of function, Requires training/education, Decreased safety/Risk of falls and Cognitive status limits abilities Rehab Potential: Fair Further Therapy Indicated?: No Candidate for Swing Bed for Therapy Services?: Pinky pt is not a candidate for swing bed due to pt is resident of [facility]. Comments: Pinky pt does not require skilled PT at this time. Pinky pt is at baseline from [facility]. Evaluation Complexity: HISTORY: Medium, EXAM OF BODY SYSTEMS: Medium, CLINICAL PRESENTATION: Medium and CLINICAL DECISION MAKING: Medium Patient's Goal(s): pt unable to express Short Term Goals GOAL #1: . GOAL #2: . GOAL #3: . GOAL #4: . GOAL #5: . [facility] [employer] [facility] Goals GOAL #1: . GOAL #2: . GOAL #3: . Plan Other:: eval only Frequency of Treatment: One time treatment Duration of Treatment: One Time Treatment Anticipated Discharge Destination: [facility] Treatment Diagnosis (ICD 10 Codes): gait difficulty R26.2 impaired balance R 26.81 Has the Physician been added for Co-signature?: Yes
[2024-08-30] MEDS: DUONEB NEB PRN (14:05)
[2024-08-31 01:38] VITALS: TEMP 97.4
[2024-08-31 05:20] VITALS: BP 139/72; PULSE 56; RESP 16
[2024-08-31 05:29] LABS: BASOPHILS % (AUTO) 0.1 % (0.0-3.0); HEMATOCRIT 37.5 % (42.0-52.0); HEMOGLOBIN 12.4 g/dl (14.0-18.0); IMMATURE GRANULOCYTE # (AUTO) 0.1 (0.0-1.0); IMMATURE GRANULOCYTE % (AUTO) 0.5 % (0.0-5.0); LYMPHOCYTES # (AUTO) 0.9 K/uL (0.60-3.4); MEAN CORPUSCULAR HEMOGLOBIN 30.6 pg (27.0-31.0); MEAN CORPUSCULAR HGB CONC 33.1 (31.8-35.4); MEAN CORPUSCULAR VOLUME 92.6 fl (80.0-94.0); MONOCYTES # (AUTO) 0.4 K/uL (0.4-2.0); MONOCYTES % (AUTO) 2.4 (0-10); NEUTROPHILS # (AUTO) 16.2 K/ul (2.0-6.9); PLATELET COUNT 130 10^3/uL (140-440); RDW COEFFICIENT OF VARIATION 13.2 % (11.6-14.8); RED BLOOD COUNT 4.05 10^6/ul (4.70-6.10); WHITE BLOOD COUNT 17.62 K/ul (4.2-10.2)
[2024-08-31 05:41] LABS: ALANINE AMINOTRANSFERASE 71.3 U/L (0-50); ALBUMIN 3.09 g/dL (3.5-5.0); ASPARTATE AMINO TRANSFERASE 59.6 U/L (17-59); BILIRUBIN,TOTAL 1.19 mg/dL (0.2-1.3); BLOOD UREA NITROGEN 22.7 mg/dL (9-20); CALCIUM 8.32 mg/dL (8.4-10.2); CARBON DIOXIDE 26.7 mmol/L (22-30.0); CHLORIDE 100.6 mmol/L (98-107); CREATININE 0.73 mg/dL (0.60-1.10); GLUCOSE 160.8 mg/dL (74-106); POTASSIUM 4.36 mmol/L (3.5-5.1); SODIUM 134.4 mmol/L (134.5-145); TOTAL PROTEIN 5.58 g/dL (6.3-8.2)
--- NOTE | 2024-08-31 09:33 | DCSUM ---
Admission Date Admission Date: 08/28/24 Discharge Date Discharge Date: 08/31/24 Admission Diagnosis Admission Diagnosis: 1. Community acquired pneumonia, bilateral 2. Sepsis due to CAP 3. Acute hypoxic respiratory failure Discharge Diagnosis Discharge Diagnosis: 1. Community acquired pneumonia, bilateral 2. Sepsis due to CAP - ruled out 3. Acute hypoxic respiratory failure - resolved 4. Hypertension 5. Hyperlipidemia 6. BPH Hospital Provider Hospital Provider: GREGOR HONG PA-C, [facility] [place] Primary Care Physician Primary Care Physician: ASHLEY CLIFFORD MD Summary of History and Physical Summary of History and Physical: Patient is a 83 year old male from the residential with pmhx of hyperlipidemia, hypertension, BPH, COPD who presents for worsening sob and cough. Patient states he hasn't felt well in a couple days. Has had pna in the past, hospitalized maybe 5 years ago. He denies chest pain. Nonproductive cough. Was noted to be hypoxic and is requiring 6L. CXR showing bibasilar pna. Pt given rocephin and azith. Lactic acid and wbc count elevated. Pt meets sepsis criteria. Given a liter of fluid in the ER. Admitted to med surg. Hospital Course Subjective: Patient was treated with rocephin, azithromycin, and solumedrol. He initially required up to 6L. He has since been weaned to RA. However may do 1-2L PRN at the CT if needed. He appears nontoxic, he feels well today. He has confusion at night. Otherwise uneventful stay. Will discharge on remaining augmentin and azithromycin, cough medicine, and nebs prn. Pt's BP was initially on low end of normal, lisinopril and amlodipine were held. It has since improved, will restart lisinopril, conitnue to hold amlodipine. Add back on at a later date if needed. Appearance: Pleasant, No Apparent Distress and Alert HEENT: MMM CVS: Other (RRR) Abdomen: Soft, Non-Tender and No Distention Respiratory: No Wheezing Extremities: No Calf Tenderness Vital Signs: Most Recent Vital Signs Temperature 97.4 F L 08/31/24 05:17 Temperature Source Temporal Artery Scan 08/31/24 05:17 Temperature Source Infrared 08/28/24 12:27 Pulse Rate 56 L 08/31/24 05:17 Respiratory Rate 16 08/31/24 05:17 Blood Pressure 139/72 08/31/24 05:17 Blood Pressure Mean 94 08/31/24 05:17 Blood Pressure Left Arm 141/81 08/28/24 16:20 Blood Pressure Location Left Arm 08/31/24 05:17 Blood Pressure Position Supine 08/31/24 05:17 O2 Sat by Pulse Oximetry 91 L 08/31/24 05:17 Oxygen Delivery Method Room Air 08/31/24 08:00 Oxygen Flow Rate 1 08/31/24 05:11 Height 5 ft 11 in 08/28/24 16:20 Weight 84 kg 08/28/24 16:20 Telemetry Type Remote Telemetry 08/31/24 01:00 Telemetry Monitoring Continues 08/31/24 01:00 Telemetry Heart Rate 67 08/31/24 01:00 Telemetry SPO2 95 08/31/24 01:00 EKG LA Interval 0.17 08/31/24 01:00 EKG QRS Interval 0.06 08/31/24 01:00 Telemetry Strip Reading SR 08/31/24 01:00 Imaging: EXAM: CHEST ONE-VIEW HISTORY: Cough and shortness of breath COMPARISON: AP chest from 07/10/2023 FINDINGS: The cardiomediastinal silhouette is normal. The pulmonary vasculature is normal. Bibasilar infiltrates are new since the prior. No pneumothoraces or pleural effusions. IMPRESSION: 1. Bibasilar pneumonia. Lab Results Last 24 Hours: 08/31/24 05:13 WBC 17.62 H RBC 4.05 L Hgb 12.4 L Hct 37.5 L MCV 92.6 MCH 30.6 MCHC 33.1 RDW Coeff of Meryl 13.2 Plt Count 130 L Immature Gran % (Auto) 0.5 Neut % (Auto) 92.0 H Lymph % (Auto) 5.0 L [place] % (Auto) 2.4 Eos % (Auto) 0.0 Baso % (Auto) 0.1 Neut # (Auto) 16.2 H Lymph # (Auto) 0.9 [place] # (Auto) 0.4 Eos # (Auto) 0.0 Baso # (Auto) 0.0 Immature Gran # (Auto) 0.1 Sodium 134.4 L Potassium 4.36 Chloride 100.6 Carbon Dioxide 26.7 Anion Gap 11.46 BUN 22.7 H Creatinine 0.73 Estimated GFR (MDRD) 102.00 BUN/Creatinine Ratio 31.09 Glucose 160.8 H Calcium 8.32 L Total Bilirubin 1.19 AST 59.6 H ALT 71.3 H D Alkaline Phosphatase 55.0 L Total Protein 5.58 L Albumin 3.09 L Globulin 2.49 Albumin/Globulin Ratio 1.24 Discharge Instructions Discharge Planning: Discharge Planning > [address] Belem Clifford. Discharge Medications: Medications at Discharge (Home Meds & RX) Discharge Plan Discharge Discharge Orders: Discharge Patient (ONCE); Ordered 08/31/24 Ordered By: GREGOR HONG Activity Restrictions/Additional Instructions: DISCHARGE TO SNF DX: BILATERAL PNEUMONIA O2 1-2 L PRN FINISH ANTIBIOTICS Patient Disposition: TRANSFER SNF Prescriptions: New ipratropium-albuterol 0.5 mg-3 mg(2.5 mg base)/3 mL Solution For Nebulization 3 ml NEB RTQ4H PRN (Reason: SOB) Qty: 90 0RF dextromethorphan-guaifenesin 10-100 mg/5 mL Syrup 10 ml PO Q4H PRN (Reason: cough) Qty: 237 0RF azithromycin 500 mg tablet 500 mg PO DAILY 1 Days Qty: 1 0RF Rx Instructions: TAKE ON 09/01 amoxicillin-pot clavulanate 875-125 mg tablet 1 tab PO BID 1 Days Qty: 2 0RF Rx Instructions: START 09/01 Continued citalopram 20 mg tablet 10 mg PO BEDTIME famotidine 20 mg tablet 20 mg PO DAILY lisinopril 20 mg tablet 20 mg PO DAILY methocarbamol 750 mg tablet 750 mg PO Q8H PRN (Reason: muscle spasm) bisacodyl 5 mg tablet 5 mg PO DAILY aspirin [Adult Aspirin Regimen] 81 mg tablet,delayed release (DR/EC) 81 mg PO DAILY atorvastatin 20 mg tablet 20 mg PO DAILY acetaminophen 325 mg tablet 650 mg PO Q6H PRN (Reason: pain) ondansetron 4 mg tablet,disintegrating 4 mg PO Q6H PRN (Reason: nausea and/or vomiting) loperamide [Anti-Diarrheal (loperamide)] 2 mg capsule 2 mg PO Q1HR PRN (Reason: diarrhea) tamsulosin 0.4 mg capsule 0.4 mg PO BEDTIME benzonatate 100 mg capsule 200 mg PO Q6HR PRN (Reason: cough) ondansetron HCl 4 mg tablet 4 mg PO Q6H PRN (Reason: nausea) Discontinued amlodipine 5 mg tablet 5 mg PO DAILY Did you review [place] [employer] for ALL controlled substances?: Not Applicable Discussed opioids are addictive and Narcan is available by prescription or from pharmacy.: No Condition: Stable
[2024-08-31] MEDS: COLACE PO PRN (09:42)
[2024-08-31] MEDS: MIRALAX PO PRN (09:42)
[2024-09-01 14:09] LABS: SPECIMEN SOURCE Urine (.); STEP PNEUMO ORGANISM ID Not indicated. (.); STREP PNEUMO AG Negative (Negative); STREP PNEUMO BODY FLUID CULT Not indicated. (.)
== END 2024-08-31 11:20 | DRG 193 ==
LOC: ED 12:22 → SCU 14:08
PROVIDERS: ADMIT Hospitalist; ATTEND Physician Assistant
DX: J44.9 Chronic obstructive pulmonary disease, unspecified; A41.9 Sepsis, unspecified organism; E78.5 Hyperlipidemia, unspecified; J18.9 Pneumonia, unspecified organism; J96.01 Acute respiratory failure with hypoxia; N40.0 Benign prostatic hyperplasia without lower urinary tract symptoms; I10 Essential (primary) hypertension

== ENCOUNTER 2025-06-29 09:07 | Inpatient (IN) ==
[2025-06-29] MEDS ORDERED: SODIUM CHLORIDE 1,000 ML IV STA (09:16)
--- NOTE | 2025-06-29 09:16 | ED.PDOC ---
General HPI ED Provider: Dr. MEL MUSA DO Chief Complaint: Respiratory Complaint Stated Complaint: 84-year-old white male presents from long term with complaints of low oxygen levels. Apparently patient started feeling bad on Monday night. Had some nausea and vomiting. This persisted into the day and he spent most of Monday throwing up. shelter staff reported that when they found him this morning, he was lying flat and was pale and diaphoretic. They noted that he was breathing hard and they checked oxygen levels and they were low. EMT said they thought long term staff said 80%. Patient is not on O2 at the long term but does have a COPD history. Of note long term has had several cases of COVID. Patient is alert and answers questions appropriately but somewhat lethargic. Often questions have to be repeated several times before he answers. He also is hard of hearing so unclear if this is part of the issue. He denies any headache or abdominal pain or diarrhea. He also denied any sore throat. He does complain of nausea. Remaining review of systems is limited due to acuity of illness. shelter staff for concern for aspiration. However patient appears acutely significantly ill and relatively short time so suspect some other etiology involved as well. Time Seen by Provider: 06/29/25 09:10 Mode of Arrival: Ambulance Information Source: Patient and EMT Exam Limitations: Clinical condition Primary Care Provider: ASHLEY CLIFFORD MD Nursing and Triage Documentation Reviewed and Agree: Yes Opioid Naive vs. Tolerant Does Patient Take Opioids?: No Is Patient Opioid Naive?: Yes What is Opioid Naive?: *Opioid Naive implies the patient is not already taking opioids or not chronically receiving opioids on a daily basis. *PRN dosing is not "usually" associated with tolerance. *Patients are at higher risk of over-sedation and aspiration. Is Patient Opioid Tolerant?: No What is Opioid Tolerant?: *Opioid Tolerance implies less than the expected response to an opioid. *Acquired tolerance is defined by the patient taking 60mg of oral morphine daily (or equianalgesic dose of another opioid) for 1 week or more. *Often associated with chronic pain. *May take more than usual dose to achieve desired pain control. Review of Systems Review Of Systems Constitutional: Reports Fever, Weakness and Sweats Eyes: Reports Vision change Ears, Nose, Mouth, Throat: Denies Ear pain, Nose discharge or Throat pain Respiratory: Reports Cough and Shortness of Breath Cardiac: Denies Chest pain GI: Reports Diarrhea (No diarrhea documented), Nausea and Vomiting; Denies Abdominal pain : Denies Burning or Dysuria Musculoskeletal: Denies Back pain Skin: Denies Rash Neurological: Reports Weakness; Denies Headache PFSH [facility] Medical History Personal history of transient ischemic attack (TIA), and cerebral infarction without residual deficits Z86.73 - Personal history of transient ischemic attack (TIA), and cerebral infarction without residual deficits (ICD-10) Other symbolic dysfunctions R48.8 - Other symbolic dysfunctions (ICD-10) Other specified arthritis, unspecified site M13.80 - Other specified arthritis, unspecified site (ICD-10) Essential (primary) hypertension I10 - Essential (primary) hypertension (ICD-10) Need for assistance with personal care Z74.1 - Need for assistance with personal care (ICD-10) Other abnormalities of gait and mobility R26.89 - Other abnormalities of gait and mobility (ICD-10) Unspecified hearing loss, right ear H91.91 - Unspecified hearing loss, right ear (ICD-10) Unspecified lack of coordination R27.9 - Unspecified lack of coordination (ICD-10) Muscle weakness (generalized) M62.81 - Muscle weakness (generalized) (ICD-10) Personal history of COVID-19 Z86.16 - Personal history of COVID-19 (ICD-10) Unspecified dementia, unspecified severity, without behavioral disturbance, psychotic disturbance, mood disturbance, and anxiety F03.90 - Unspecified dementia, unspecified severity, without behavioral disturbance, psychotic disturbance, mood disturbance, and anxiety (ICD-10) Atherosclerotic heart disease of [place] coronary artery without angina pectoris I25.10 - Atherosclerotic heart disease of [place] coronary artery without angina pectoris (ICD-10) Major depressive disorder, single episode, unspecified F32.9 - Major depressive disorder, single episode, unspecified (ICD-10) Type 2 diabetes mellitus without complications E11.9 - Type 2 diabetes mellitus without complications (ICD-10) Pneumonia, unspecified organism J18.9 - Pneumonia, unspecified organism (ICD-10) Acute and subacute hepatic failure without coma K72.00 - Acute and subacute hepatic failure without coma (ICD-10) Vertigo of central origin H81.4 - Vertigo of central origin (ICD-10) Type 2 diabetes mellitus with diabetic neuropathy, unspecified E11.40 - Type 2 diabetes mellitus with diabetic neuropathy, unspecified (ICD-10) Wedge compression fracture of t11-T12 vertebra, subsequent encounter for fracture with routine healing S22.080D - Wedge compression fracture of T11-T12 vertebra, subsequent encounter for fracture with routine healing (ICD-10) Dementia F03.90 - Unspecified dementia, unspecified severity, without behavioral disturbance, psychotic disturbance, mood disturbance, and anxiety (ICD-10) Hyperlipidemia E78.5 - Hyperlipidemia, unspecified (ICD-10) Atherosclerotic heart disease I25.10 - Atherosclerotic heart disease of [place] coronary artery without angina pectoris (ICD-10) Vertigo R42 - Dizziness and giddiness (ICD-10) Depression F32.A - Depression, unspecified (ICD-10) Type 2 diabetes mellitus E11.9 - Type 2 diabetes mellitus without complications (ICD-10) COPD (chronic obstructive pulmonary disease) J44.9 - Chronic obstructive pulmonary disease, unspecified (ICD-10) Cognitive communication deficit R41.841 - Cognitive communication deficit (ICD-10) Cerebral infarction I63.9 - Cerebral infarction, unspecified (ICD-10) TIA (transient ischemic attack) G45.9 - Transient cerebral ischemic attack, unspecified (ICD-10) GERD without esophagitis K21.9 - Gastro-esophageal reflux disease without esophagitis (ICD-10) Personal history of other venous thrombosis and embolism Z86.718 - Personal history of other venous thrombosis and embolism (ICD-10) Hypertension I10 - Essential (primary) hypertension (ICD-10) Social History Alcohol intake: unknown shelter: Yes ([place]) Physical Exam Physical Exam Appearance: Reports Ill-appearing and Other (NAD) Ill-appearing: Moderate Pain Distress: None Eyes: Reports ROSAS, EOMI, Conjunctiva clear and Other (Sclera anicteric); Denies Conjunctiva inflammed ENT: Reports Ears normal, Nose normal, Oropharynx normal (Acute via nonrebreather in place. Patient not responding when asked to open mouth for review of pharynx. Will reassess once patient is less lethargic.) and Dry mucosa; Denies Rhinorrhea Neck: Supple Respiratory: Reports Airway patent, Breath sounds equal, Breath sounds diminished (Breath sounds diminished bilateral bases with scattered rhonchi and rales. No definite wheezes. No definite dullness to percussion. Breath sounds are equal bilateral. Patient is tachypneic and moderate increased work of breathing noted. Speaking in only 2-3 word sentences. However acutely ill ), Crackles, Rhonchi and Retractions; Denies Wheezes Cardiovascular: Reports Tachycardia and Abnormal pulses (Bounding pulses) GI/: Reports Soft, Nontender, Bowel sounds normal and Other (Moderate adiposity. Not evaluated for masses or megaly.) Musculoskeletal: Reports Edema and Other (Strength testing not performed. Patient moves extremities x 4 and states he does ambulate at long term with walker.) Skin: Reports Other (Skin is hot, slightly moist and flushed. No definite rashes noted.) Neurological: Reports Motor intact, Reflexes intact, Alert (Mildly lethargic but answers questions appropriately and answers to verbal.), Oriented and Other (No facial asymmetries are appreciated. Gait is not observed.) Psychiatric: Reports Other (Affect is appropriate mood is not assessed patient is acutely ill and lethargic. Appears alert and oriented x 3.) Interpretation Radiology Interpretation Radiology Interpretation By: ED Physician (Chest x-ray viewed by this provider. Elevated right hemidiaphragm otherwise unable to adequately evaluate for pneumonia given single view PA chest. Will obtain CT.) Radiology Interpretation By: Radiologist Exam Interpreted: CT Scan Physician Progress Note Physician Progress Note: 84-year-old white male presents from long term with complaints of low oxygen levels. Apparently patient started feeling bad on Monday night. Had some nausea and vomiting. This persisted into the day and he spent most of Monday throwing up. shelter staff reported that when they found him this morning, he was lying flat and was pale and diaphoretic. They noted that he was breathing hard and they checked oxygen levels and they were low. EMT said they thought long term staff said 80%. Patient is not on O2 at the long term but does have a COPD history. Of note long term has had several cases of COVID. Based on history of present illness as well as physical exam, patient meets criteria for sepsis. Will proceed with sepsis evaluation but strong suspicion for underlying etiology of sepsis to be COVID. 10:26a patient's COVID test is positive. Will admit for further evaluation and treatment. Patient has received IV antibiotics and fluids in ED. 10:32a patient discussed with nurse practitioner Jadiel Gamboa. CT of chest is still pending. She agrees to admit if CT does not have any significant abnormalities that would preclude patient been able to remain here. RSV and flu negative. All EKG and plain radiographs are reviewed viewed and interpreted by this provider independently. CT scans are reviewed and interpreted by radiology. Minors or disabled patients accompanied by guardians have had appropriate consent obtained for testing and treatment. This note is created using voice dictation and may contain spelling and/or contextual grammatical errors related to voice dictation. Critical Care Note Critical Care Note Total Critical Care Time (mins): 30 Comments: Patient's initial presentation consistent with acute sepsis. Sepsis protocol initiated. Critical care time excludes separately billable procedures. Course Course 06/29/25 09:31 06/29/25 09:31 Orders, Labs, Meds: Lab Review 06/29/25 06/29/25 06/29/25 09:22 09:31 09:47 WBC 8.57 RBC 4.20 L Hgb 13.2 L Hct 40.0 L MCV 95.2 H MCH 31.4 H MCHC 33.0 RDW Coeff of Meryl 12.9 Plt Count 88 L Immature Gran % (Auto) 0.7 Neut % (Auto) 88.8 H Lymph % (Auto) 3.5 L [place] % (Auto) 6.9 Eos % (Auto) 0.0 Baso % (Auto) 0.1 Neut # (Auto) 7.6 H Lymph # (Auto) 0.3 L [place] # (Auto) 0.6 Eos # (Auto) 0.0 Baso # (Auto) 0.0 Immature Gran # (Auto) 0.1 ESR 29 H PT 10.9 INR 1.05 Puncture Site Lt rad Base Excess 6.5 H O2 Saturation 99.8 H ABG pH 7.52 H* ABG pCO2 36.0 ABG pO2 197.0 H ABG HCO3 29.4 H ABG Total CO2 30.5 H Antony Test Os Hemoglobin 1.5 Oxyhemoglobin 96.2 Carboxyhemoglobin 1.9 H Total Hemoglobin 13.2 O2 Delivery Device Non rebreather Oxygen Liter Flow 10.00 FiO2 % 60.0 Sodium 133.0 L Potassium 3.90 Chloride 100.0 Carbon Dioxide 28.0 Anion Gap 8.90 BUN 21.0 H Creatinine 1.10 Estimated GFR (MDRD) 64.00 BUN/Creatinine Ratio 19.09 Glucose 189.0 H Lactic Acid 1.20 Calcium 8.30 L Total Bilirubin 3.90 H AST 37.0 ALT 29.0 Alkaline Phosphatase 75.0 Total Protein 6.00 L Albumin 3.40 L Globulin 2.60 Albumin/Globulin Ratio 1.30 Procalcitonin 0.30 H Urine Color Urine Clarity Urine pH Ur Specific [place] Urine Protein Urine Glucose (UA) Urine Ketones Urine Blood Urine Nitrite Urine Bilirubin Urine Urobilinogen Ur Leukocyte Esterase Urine Microscopic RBC Urine Microscopic WBC Ur Squamous Epith Cells Urine Bacteria Influ A Molecular Assay Negative by naat Influ B Molecular Assay Negative by naat RSV Antigen Negative by naat SARS CoV-2 RNA Rapid TY Positive H 06/29/25 11:02 WBC RBC Hgb Hct MCV MCH MCHC RDW Coeff of Meryl Plt Count Immature Gran % (Auto) Neut % (Auto) Lymph % (Auto) [place] % (Auto) Eos % (Auto) Baso % (Auto) Neut # (Auto) Lymph # (Auto) [place] # (Auto) Eos # (Auto) Baso # (Auto) Immature Gran # (Auto) ESR PT INR Puncture Site Base Excess O2 Saturation ABG pH ABG pCO2 ABG pO2 ABG HCO3 ABG Total CO2 Antony Test Hemoglobin Oxyhemoglobin Carboxyhemoglobin Total Hemoglobin O2 Delivery Device Oxygen Liter Flow FiO2 % Sodium Potassium Chloride Carbon Dioxide Anion Gap BUN Creatinine Estimated GFR (MDRD) BUN/Creatinine Ratio Glucose Lactic Acid Calcium Total Bilirubin AST ALT Alkaline Phosphatase Total Protein Albumin Globulin Albumin/Globulin Ratio Procalcitonin Urine Color Yellow Urine Clarity Clear Urine pH 6.0 Ur Specific [place] 1.020 Urine Protein 2+ H Urine Glucose (UA) Negative Urine Ketones 1+ H Urine Blood 2+ H Urine Nitrite Positive H Urine Bilirubin 1+ H Urine Urobilinogen 1.0 H Ur Leukocyte Esterase 3+ H Urine Microscopic RBC 5-10 Urine Microscopic WBC 10-20 Ur Squamous Epith Cells 2-5 Urine Bacteria Trace Influ A Molecular Assay Influ B Molecular Assay RSV Antigen SARS CoV-2 RNA Rapid TY Orders Category Date Time Status ADMIT PATIENT INPATIENT .TO [facility] (MONITORED BED) ADMISSION 06/29/25 11:08 Active ABG DRAW REQUEST Stat CARDIO 06/29/25 09:18 Completed NEBULIZER TREATMENT Stat CARDIO 06/29/25 09:43 Completed OXYGEN Routine CARDIO 06/29/25 11:27 Active ACTIVITY .Early Mobilization for VTE Prevention CARE 06/29/25 11:26 Active INTAKE & OUTPUT Q8HR CARE 06/29/25 11:26 Active TELEMETRY MONITORING TELE CARE 06/29/25 11:09 Active VITAL SIGNS Q8HR CARE 06/29/25 11:26 Active REGULAR DIET DIETARY 06/29/25 Lunch Ordered ED APPLY O2 .ONCE EMERGENCY 06/29/25 09:19 Active ED SCAFFOLD WORKER APPLIED .ONCE EMERGENCY 06/29/25 09:19 Active ABG COOX Stat LAB 06/29/25 09:47 Completed BLOOD CULTURE (ED ONLY) Stat LAB 06/29/25 09:31 Received C-REACTIVE PROTEIN Stat LAB 06/29/25 09:31 Received CBC W/ AUTO DIFF DAILY@0600 LAB 06/30/25 06:00 Ordered CBC W/ AUTO DIFF DAILY@0600 LAB 07/01/25 06:00 Ordered CBC W/ AUTO DIFF Stat LAB 06/29/25 09:31 Completed CMP [COMPREHENSIVE METABOLIC PANEL] Stat LAB 06/29/25 09:31 Completed COMPREHENSIVE METABOLIC PANEL DAILY@0600 LAB 06/30/25 06:00 Ordered COMPREHENSIVE METABOLIC PANEL DAILY@0600 LAB 07/01/25 06:00 Ordered COVID [SARS COV-2 RNA RAPID TY] Stat LAB 06/29/25 09:22 Completed ESR Stat LAB 06/29/25 09:31 Completed FLU A/B MOLECULAR Stat LAB 06/29/25 09:22 Completed LACTIC ACID Stat LAB 06/29/25 09:31 Completed MRSA SCREEN Routine LAB 06/29/25 09:25 Received PROCALCITONIN Stat LAB 06/29/25 09:31 Completed PT WITH INR Stat LAB 06/29/25 09:31 Completed RSV Stat LAB 06/29/25 09:22 Completed URINALYSIS C & S IF INDICATED Stat LAB 06/29/25 11:02 Completed URINE CULTURE Stat LAB 06/29/25 11:26 Received Acetaminophen [Tylenol] Meds 06/29/25 11:26 Active 650 mg PO Q4H PRN Enoxaparin Sodium [Lovenox] Meds 06/30/25 09:00 Active 40 mg SUBCUT DAILY Ipratropium/Albuterol Neb [Duoneb] Meds 06/29/25 09:42 Discontinued 3 ml NEB ONCE STA Ketorolac Tromethamine [Toradol] Meds 06/29/25 09:49 Discontinued 30 mg IVP ONCE STA Pharm Consult [Pharm Consult:Vanco IV Maintenance Meds 06/29/25 09:19 Pending Dosing] 1 each IV ONCE ONE Pharm Consult [Pharm Consult:Vancomycin IV One Time Meds 06/29/25 09:19 Discontinued Order] 1 each IV ONCE ONE Piperacillin Sodium/Tazobactam [Zosyn 4.5 gm] 4.5 gm Meds 06/29/25 09:19 Discontinued 0.9 % Sodium Chloride [Sodium Chloride 100Ml] 100 ml IV ONCE Sodium Chloride 0.9% [Sodium Chloride] 1,000 ml Meds 06/29/25 11:30 Active IV 75 mls/hr Sodium Chloride 0.9% [Sodium Chloride] 1,000 ml Meds 06/29/25 09:42 Discontinued IV BOLUS Vancomycin/Water For Inj (Peg) [Vancomycin 1 Gram/200 Meds 06/29/25 10:30 Discontinued ml Premix] 2 gm in 400 ml IV ONCE CHEST, 1V AP ONLY Stat RADS 06/29/25 09:[address] CHEST W/O CONTRAST Stat RADS 06/29/25 09:53 Completed Medications Generic Name Dose Route Start Last Admin Trade Name Freq PRN Reason Stop Dose Admin Acetaminophen 650 mg 06/29/25 11:26 Acetaminophen 325 Mg Tablet PO Q4H PRN Mild Pain Albuterol/Ipratropium 3 ml 06/29/25 14:00 Ipratropium/Albuterol Vial.Neb NEB RTQ4H PORFIRIO Dexamethasone Sodium Phosphate 6 mg 06/29/25 12:00 06/29/25 12:23 Dexamethasone Sod Phos 10 Mg/Ml Inj IVP 6 mg DAILY PORFIRIO Administration Enoxaparin Sodium 40 mg 06/30/25 09:00 Enoxaparin Sodium 40 Mg/0.4 Ml Syr SUBCUT DAILY PORFIRIO Sodium Chloride 1,000 mls @ 75 mls/hr 06/29/25 11:30 Sodium Chloride IV .[id number] PORFIRIO Piperacillin Sod/Tazobactam 100 mls @ 200 mls/hr 06/29/25 15:00 Sod 3.375 gm/ Sodium Chloride IV 07/02/25 14:59 Q6H PORFIRIO VANCOMYCIN/WATER FOR INJ (PEG) 1.5 gm in 300 mls @ 200 mls/hr 06/29/25 12:30 Vancomycin 1.5 Gram/300 Ml Premix IV 07/02/25 12:29 ONCE PORFIRIO Remdesivir 200 mg/ Sodium 250 mls @ 250 mls/hr 06/29/25 13:00 Chloride IV 06/29/25 13:59 ONCE ONE Remdesivir 100 mg/ Sodium 100 mls @ 200 mls/hr 06/30/25 13:00 Chloride IV 07/03/25 13:29 Q24H PORFIRIO Non-Formulary Medication 1 each 06/29/25 09:19 Pharm Consult:Vanco Iv Maintenance Dosing IV 06/29/25 09:20 ONCE ONE Non-Formulary Medication 1 each 06/29/25 11:35 Pharm Consult:Vanco Iv Maintenance Dosing IV 06/29/25 11:36 ONCE ONE Discontinued Medications Generic Name Dose Route Start Last Admin Trade Name Freq PRN Reason Stop Dose Admin Albuterol/Ipratropium 3 ml 06/29/25 09:42 06/29/25 09:59 Ipratropium/Albuterol Vial.Brenda NEB 06/29/25 09:43 3 ml ONCE STA Administration Piperacillin Sod/Tazobactam 100 mls @ 200 mls/hr 06/29/25 09:19 06/29/25 09:48 Sod 4.5 gm/ Sodium Chloride IV 06/29/25 09:48 200 mls/hr ONCE ONE Administration Sodium Chloride 1,000 mls @ 1,000 mls/hr 06/29/25 09:42 06/29/25 09:50 Sodium Chloride IV 06/29/25 10:41 1,000 mls/hr BOLUS ONE Administration VANCOMYCIN/WATER FOR INJ (PEG) 2 gm in 400 mls @ 200 mls/hr 06/29/25 10:30 06/29/25 10:51 Vancomycin 1 Gram/200 Ml Premix IV 06/29/25 12:29 200 mls/hr ONCE ONE Administration Ketorolac Tromethamine 30 mg 06/29/25 09:49 06/29/25 09:53 Ketorolac Tromethamine 60 Mg/2 Ml Vial IVP 06/29/25 09:50 30 mg ONCE STA Administration Non-Formulary Medication 1 each 06/29/25 09:19 Pharm Consult: Vancomycin Iv One Time Order IV 06/29/25 09:20 ONCE ONE Vital Signs: Temp Pulse Resp BP Pulse Ox O2 Flow Rate 06/29/25 10:23 3 06/29/25 09:31 10 06/29/25 09:22 103 F H 95 30 H 130/94 H 96 Discharge Plan Discharge Patient Disposition: ADMITTED INPATIENT Discharge Problem: Acute hypoxemic respiratory failure due to severe acute respiratory syndrome coronavirus 2 (SARS-CoV-2) disease, Vomiting, Nausea, Pneumonia, Sepsis Did you review [place] DIABETES NURSE for ALL controlled substances?: Not Applicable ED Provider: MEL MUSA Condition: Serious
[2025-06-29] MEDS ORDERED: PHARM CONSULT:VANCOMYCIN IV ONE TIME ORDER IV (09:19)
[2025-06-29] MEDS ORDERED: PHARM CONSULT:VANCO IV MAINTENANCE DOSING IV ONE ×2 (09:19→11:35)
[2025-06-29 09:39] LABS: IMMATURE GRANULOCYTE # (AUTO) 0.1 (0.0-1.0); IMMATURE GRANULOCYTE % (AUTO) 0.7 % (0.0-5.0); RDW COEFFICIENT OF VARIATION 12.9 % (11.6-14.8)
[2025-06-29] MEDS: ZOSYN 4.5 GM 4.5 GM in SODIUM CHLORIDE 100ML 100 ML IV ONE (09:48)
[2025-06-29 09:50] LABS: INR 1.05 SI (0.0-3.9)
[2025-06-29] MEDS: SODIUM CHLORIDE 1,000 ML IV ONE (09:50)
[2025-06-29] MEDS: TORADOL IVP STA (09:53)
[2025-06-29 09:55] LABS: ABG O2 HGB 96.2 % (95-100); ABG PCO2 36.0 mmHg (35-45); ABG PH 7.52 (7.35-7.45); ABG PO2 197.0 mmHg (85-100); BEecf 6.5 (-2.0-3.0); FI02 60.0 %; HCO3 29.4 (21-28); TCO2 30.5 (19-24)
[2025-06-29 09:56] LABS: CREATININE 1.1 mg/dL (0.60-1.10)
[2025-06-29] MEDS: DUONEB NEB STA (09:59)
[2025-06-29 10:15] LABS: MOLECULAR FLU A NEGATIVE BY NAAT (NEGATIVE); MOLECULAR FLU B NEGATIVE BY NAAT (NEGATIVE); SARS COV-2 RNA RAPID NAAT POSITIVE (NEGATIVE)
--- NOTE | 2025-06-29 10:15 | DI ---
EXAM: CHEST RADIOGRAPH TECHNIQUE: Single frontal chest radiograph. HISTORY: Hypoxia. COMPARISON: 03/24/2025. FINDINGS: Lung volumes are decreased bilaterally causing accentuation to the interstitium. No consolidations, pleural effusion or pneumothorax. Cardiomediastinal silhouette and pulmonary vessels are within normal limits. Upper abdomen is unremarkable. No acute bony abnormality. IMPRESSION: 1. Low lung volumes without indication of acute cardiopulmonary disease.
[2025-06-29 10:31] LABS: ERYTHROCYTE SEDIMENTATION RATE 29 mm/hr (0-15)
[2025-06-29 10:34] LABS: RSV MOLECULAR NEGATIVE BY NAAT (NEGATIVE)
[2025-06-29] MEDS: VANCOMYCIN 1 GRAM/200 ML PREMIX 2 GM/400 ML BAG IV ONE (10:51)
--- NOTE | 2025-06-29 11:00 | CT ---
EXAM: CHEST CT WITHOUT CONTRAST 06/29/2025 HISTORY: Fever. Sepsis. TECHNIQUE: Axial CT images were obtained through the chest without the administration of intravenous contrast. Coronal and sagittal reformatted images were also submitted for interpretation. COMPARISON: CTA chest 03/24/2025. FINDINGS: The lower neck is within normal limits. Major airways are patent. No pneumothorax or pleural fluid. Consolidative opacities in the lung bases; right greater than may represent pneumonia and/or atelectasis. Clinical correlation and short-term follow-up advised. Few nodules in the right middle lobe measuring up to 0.4 cm, unchanged. Mild/moderate cardiomegaly. No pericardial effusion. Ectasia of the descending thoracic aorta measuring 2.9 cm. Atherosclerosis in the aorta. Coronary calcifications. Enlarged pulmonary trunk measuring up to 3.6 cm suggestive of pulmonary arterial hypertension. No lymphadenopathy allowing for limitation by lack of IV contrast. Soft tissue structures are unremarkable. Cholecystectomy clips. Bilateral renal hypodensities some of which are cysts and others which are too small to characterize, unchanged. Right adrenal adenoma. Degenerative changes. Scoliosis. Moderate height loss of the superior endplate of T12 vertebral body, unchanged. IMPRESSION: - Consolidative opacities in the lung bases; right greater than may represent pneumonia and/or atelectasis. Clinical correlation and short-term follow-up advised. - Few nodules in the right middle lobe measuring up to 0.4 cm, unchanged. - Mild/moderate cardiomegaly. No pericardial effusion. - Ectasia of the descending thoracic aorta measuring 2.9 cm. Atherosclerosis in the aorta. Coronary calcifications. - Enlarged pulmonary trunk measuring up to 3.6 cm suggestive of pulmonary arterial hypertension. - Cholecystectomy clips. Bilateral renal hypodensities some of which are cysts and others which are too small to characterize, unchanged.. All CT scans are performed using dose optimization techniques as appropriate to the performed exam and include at least one of the following: Automated exposure control, adjustment of the mA and/or kV according to size, and the use of iterative reconstruction technique.
[2025-06-29 11:13] LABS: GLUCOSE, URINE (UA) Negative (NEGATIVE); LEUKOCYTE ESTERASE ,URINE 3+ (NEGATIVE); URINE, BLOOD 2+ (NEGATIVE)
[2025-06-29] MEDS ORDERED: TYLENOL PO PRN ×2 (11:26→15:41)
--- NOTE | 2025-06-29 12:13 | PCM ---
Date of Service Date Seen by Provider: 06/29/25 Time Seen by Provider: 12:00 Admit Day/Time Admission Date: 06/29/25 Admission Time: 11:10 Reason for Admission Chief Complaint: ACUTE COVID RESP FAILURE, EHYPOXIA Hospital Provider [facility] Provider: MARILYN SMITH, [facility] Primary Care Physician Primary Care Physician: THONY SANTAMARIA APRN History of Present Illness History of Present Illness: 84 yo male with pmh of dementia, HTN, CAD, and COPD presented to the ER from [facility] for shortness of breath. Per nursing staff, patient started not feeling well on Monday, vomited intermittently on monday, and has been lethargic since. Had been laying flat of his back and SNF was concerned for aspiration. O2 sat was 80%. Tachypneic on arrival with 103 temp. Placed on NRB in ER. Able to wean down to 3L. Found to be Covid-19 positive, UTI, possible pneumonia on Chest CT. Received neb treatment, vanc, and zosyn. Unable to obtain HPI and ROS due to mental status. Admitted to Med/surg Inpatient. Case Discussed With Case Discussed With: Patient's case was discussed with the ER Physicians, Dr. Manzano. [facility] Medical History Personal history of transient ischemic attack (TIA), and cerebral infarction without residual deficits Z86.73 - Personal history of transient ischemic attack (TIA), and cerebral infarction without residual deficits (ICD-10) Other symbolic dysfunctions R48.8 - Other symbolic dysfunctions (ICD-10) Other specified arthritis, unspecified site M13.80 - Other specified arthritis, unspecified site (ICD-10) Essential (primary) hypertension I10 - Essential (primary) hypertension (ICD-10) Need for assistance with personal care Z74.1 - Need for assistance with personal care (ICD-10) Other abnormalities of gait and mobility R26.89 - Other abnormalities of gait and mobility (ICD-10) Unspecified hearing loss, right ear H91.91 - Unspecified hearing loss, right ear (ICD-10) Unspecified lack of coordination R27.9 - Unspecified lack of coordination (ICD-10) Muscle weakness (generalized) M62.81 - Muscle weakness (generalized) (ICD-10) Personal history of COVID-19 Z86.16 - Personal history of COVID-19 (ICD-10) Unspecified dementia, unspecified severity, without behavioral disturbance, psychotic disturbance, mood disturbance, and anxiety F03.90 - Unspecified dementia, unspecified severity, without behavioral disturbance, psychotic disturbance, mood disturbance, and anxiety (ICD-10) Atherosclerotic heart disease of [place] coronary artery without angina pectoris I25.10 - Atherosclerotic heart disease of [place] coronary artery without angina pectoris (ICD-10) Major depressive disorder, single episode, unspecified F32.9 - Major depressive disorder, single episode, unspecified (ICD-10) Type 2 diabetes mellitus without complications E11.9 - Type 2 diabetes mellitus without complications (ICD-10) Pneumonia, unspecified organism J18.9 - Pneumonia, unspecified organism (ICD-10) Acute and subacute hepatic failure without coma K72.00 - Acute and subacute hepatic failure without coma (ICD-10) Vertigo of central origin H81.4 - Vertigo of central origin (ICD-10) Type 2 diabetes mellitus with diabetic neuropathy, unspecified E11.40 - Type 2 diabetes mellitus with diabetic neuropathy, unspecified (ICD-10) Wedge compression fracture of t11-T12 vertebra, subsequent encounter for fracture with routine healing S22.080D - Wedge compression fracture of T11-T12 vertebra, subsequent encounter for fracture with routine healing (ICD-10) Dementia F03.90 - Unspecified dementia, unspecified severity, without behavioral disturbance, psychotic disturbance, mood disturbance, and anxiety (ICD-10) Hyperlipidemia E78.5 - Hyperlipidemia, unspecified (ICD-10) Atherosclerotic heart disease I25.10 - Atherosclerotic heart disease of [place] coronary artery without angina pectoris (ICD-10) Vertigo R42 - Dizziness and giddiness (ICD-10) Depression F32.A - Depression, unspecified (ICD-10) Type 2 diabetes mellitus E11.9 - Type 2 diabetes mellitus without complications (ICD-10) COPD (chronic obstructive pulmonary disease) J44.9 - Chronic obstructive pulmonary disease, unspecified (ICD-10) Cognitive communication deficit R41.841 - Cognitive communication deficit (ICD-10) Cerebral infarction I63.9 - Cerebral infarction, unspecified (ICD-10) TIA (transient ischemic attack) G45.9 - Transient cerebral ischemic attack, unspecified (ICD-10) GERD without esophagitis K21.9 - Gastro-esophageal reflux disease without esophagitis (ICD-10) Personal history of other venous thrombosis and embolism Z86.718 - Personal history of other venous thrombosis and embolism (ICD-10) Hypertension I10 - Essential (primary) hypertension (ICD-10) Social History Alcohol intake: unknown prison: Yes ([place]) Allergies Allergies Allergy/AdvReac Type Severity Reaction Status Date / Time morphine AdvReac Unknown Verified 06/29/25 09:20 Current Medications Home Medications Acetaminophen (Acetaminophen 325 Mg Tablet) 650 mg PO Q4H PRN PRN Reason: Mild Pain Albuterol/Ipratropium (Ipratropium/Albuterol Vial.Neb) 3 ml NEB RTQ4H PORFIRIO Dexamethasone Sodium Phosphate (Dexamethasone Sod Phos 10 Mg/Ml Inj) 6 mg IVP DAILY PORFIRIO Last Admin: 06/29/25 12:23 Dose: 6 mg Enoxaparin Sodium (Enoxaparin Sodium 40 Mg/0.4 Ml Syr) 40 mg SUBCUT DAILY PORFIRIO Sodium Chloride (Sodium Chloride) 1,000 mls @ 75 mls/hr IV .[id number] PORFIRIO Piperacillin Sod/Tazobactam (Sod 3.375 gm/ Sodium Chloride) 100 mls @ 200 mls/hr IV Q6H PORFIRIO Stop: 07/02/25 14:59 VANCOMYCIN/WATER FOR INJ (PEG) (Vancomycin 1.5 Gram/300 Ml Premix) 1.5 gm in 300 mls @ 200 mls/hr IV ONCE PORFIRIO Stop: 07/02/25 12:29 Remdesivir 200 mg/ Sodium (Chloride) 250 mls @ 250 mls/hr IV ONCE ONE Stop: 06/29/25 13:59 Remdesivir 100 mg/ Sodium (Chloride) 100 mls @ 200 mls/hr IV Q24H PORFIRIO Stop: 07/03/25 13:29 Non-Formulary Medication (Pharm Consult:Vanco Iv Maintenance Dosing) 1 each IV ONCE ONE Stop: 06/29/25 09:20 Non-Formulary Medication (Pharm Consult:Vanco Iv Maintenance Dosing) 1 each IV ONCE ONE Stop: 06/29/25 11:36 aspirin 81 mg tablet,delayed release (Adult Aspirin Regimen) 81 mg PO DAILY 07/10/23 [History Confirmed 06/29/25] bisacodyl 5 mg tablet 5 mg PO DAILY 07/10/23 [History Confirmed 06/29/25] citalopram 20 mg tablet 10 mg PO BEDTIME 07/10/23 [History Confirmed 06/29/25] famotidine 20 mg tablet 20 mg PO DAILY 07/10/23 [History Confirmed 06/29/25] lisinopril 20 mg tablet 20 mg PO DAILY 07/10/23 [History Confirmed 06/29/25] methocarbamol 750 mg tablet 750 mg PO Q8H PRN muscle spasm 07/10/23 [History Confirmed 06/29/25] acetaminophen 325 mg tablet 650 mg PO Q6H PRN pain 01/13/24 [History Confirmed 06/29/25] atorvastatin 20 mg tablet 20 mg PO DAILY 01/13/24 [History Confirmed 06/29/25] loperamide 2 mg capsule (Anti-Diarrheal (loperamide)) 2 mg PO Q1HR PRN diarrhea 08/28/24 [History Confirmed 06/29/25] ondansetron HCl 4 mg tablet 4 mg PO Q6H PRN nausea 08/28/24 [History Confirmed 06/29/25] tamsulosin 0.4 mg capsule 0.4 mg PO BEDTIME 08/28/24 [History Confirmed 06/29/25] ipratropium 0.5 mg-albuterol 3 mg (2.5 mg base)/3 mL nebulization soln 3 ml NEB RTQ4H PRN SOB #90 mL 08/31/24 [Rx Confirmed 06/29/25] cholecalciferol (vitamin D3) 25 mcg (1,000 unit) capsule 50 mcg PO DAILY 03/24/25 [History Confirmed 06/29/25] furosemide 20 mg tablet 20 mg PO 2XD 03/24/25 [History Confirmed 06/29/25] potassium chloride 10 mEq tablet,extended release(part/cryst) 10 meq PO DAILY 03/24/25 [History Confirmed 06/29/25] citalopram 10 mg tablet 10 mg PO DAILY 06/29/25 [History Confirmed 06/29/25] Opioid Naive vs. Tolerant Does Patient Take Opioids?: No Is Patient Opioid Naive?: Yes What is Opioid Naive?: *Opioid Naive implies the patient is not already taking opioids or not chronically receiving opioids on a daily basis. *PRN dosing is not "usually" associated with tolerance. *Patients are at higher risk of over-sedation and aspiration. Is Patient Opioid Tolerant?: No What is Opioid Tolerant?: *Opioid Tolerance implies less than the expected response to an opioid. *Acquired tolerance is defined by the patient taking 60mg of oral morphine daily (or equianalgesic dose of another opioid) for 1 week or more. *Often associated with chronic pain. *May take more than usual dose to achieve desired pain control. Physical examination Most Recent Vital Signs: Most Recent Vital Signs Temperature 98.6 F 06/29/25 11:32 Temperature Source Oral 06/29/25 09:22 Pulse Rate 95 06/29/25 09:22 Respiratory Rate 30 H 06/29/25 09:22 Blood Pressure 130/94 H 06/29/25 09:22 O2 Sat by Pulse Oximetry 96 06/29/25 09:22 Oxygen Flow Rate 3 06/29/25 10:23 Height 6 ft 1 in 06/29/25 09:22 Weight 104.4 kg 06/29/25 09:22 Telemetry Heart Rate 67 08/31/24 01:00 Telemetry SPO2 95 08/31/24 01:00 Appearance: Positive Ill-Appearing Skin: Positive Warm HEENT: Positive Normocephalic and PERRLA Neck: Positive Supple and Midline Trachea Chest/Lungs: Positive Symmetrical With Equal Breath Sounds and Clear to Auscultation Bilaterally (diminished); Negative Rales, Rhonci or Wheezes Heart: Positive Pulses Normal and Murmur; Negative Tachycardia or Bracycardia GI/: Positive Soft, Nontender, Bowel Sounds Normal and No Distention Musculoskeletal: Positive Not Examined Extremities: Positive Edema (+1-2 nonpitting BLE), Intact Peripheral Pulses, Stable Joints Without Laxity and Good ROM in All Joints Neurological: Positive Sensation Intact, Motor intact, Reflexes Intact and Other (lethargic, disoriented); Negative Focal Deficit Labs This Visit Labs This Visit: Labs This Visit 06/29/25 06/29/25 06/29/25 09:22 09:31 09:47 WBC 8.57 RBC 4.20 L Hgb 13.2 L Hct 40.0 L MCV 95.2 H MCH 31.4 H MCHC 33.0 RDW Coeff of Meryl 12.9 Plt Count 88 L Immature Gran % (Auto) 0.7 Neut % (Auto) 88.8 H Lymph % (Auto) 3.5 L [place] % (Auto) 6.9 Eos % (Auto) 0.0 Baso % (Auto) 0.1 Neut # (Auto) 7.6 H Lymph # (Auto) 0.3 L [place] # (Auto) 0.6 Eos # (Auto) 0.0 Baso # (Auto) 0.0 Immature Gran # (Auto) 0.1 ESR 29 H PT 10.9 INR 1.05 Puncture Site Lt rad Base Excess 6.5 H O2 Saturation 99.8 H ABG pH 7.52 H* ABG pCO2 36.0 ABG pO2 197.0 H ABG HCO3 29.4 H ABG Total CO2 30.5 H Antony Test Os Hemoglobin 1.5 Oxyhemoglobin 96.2 Carboxyhemoglobin 1.9 H Total Hemoglobin 13.2 O2 Delivery Device Non rebreather Oxygen Liter Flow 10.00 FiO2 % 60.0 Sodium 133.0 L Potassium 3.90 Chloride 100.0 Carbon Dioxide 28.0 Anion Gap 8.90 BUN 21.0 H Creatinine 1.10 Estimated GFR (MDRD) 64.00 BUN/Creatinine Ratio 19.09 Glucose 189.0 H Lactic Acid 1.20 Calcium 8.30 L Total Bilirubin 3.90 H AST 37.0 ALT 29.0 Alkaline Phosphatase 75.0 Total Protein 6.00 L Albumin 3.40 L Globulin 2.60 Albumin/Globulin Ratio 1.30 Procalcitonin 0.30 H Urine Color Urine Clarity Urine pH Ur Specific [place] Urine Protein Urine Glucose (UA) Urine Ketones Urine Blood Urine Nitrite Urine Bilirubin Urine Urobilinogen Ur Leukocyte Esterase Urine Microscopic RBC Urine Microscopic WBC Ur Squamous Epith Cells Urine Bacteria Influ A Molecular Assay Negative by naat Influ B Molecular Assay Negative by naat RSV Antigen Negative by naat SARS CoV-2 RNA Rapid TY Positive H 06/29/25 11:02 WBC RBC Hgb Hct MCV MCH MCHC RDW Coeff of Meryl Plt Count Immature Gran % (Auto) Neut % (Auto) Lymph % (Auto) [place] % (Auto) Eos % (Auto) Baso % (Auto) Neut # (Auto) Lymph # (Auto) [place] # (Auto) Eos # (Auto) Baso # (Auto) Immature Gran # (Auto) ESR PT INR Puncture Site Base Excess O2 Saturation ABG pH ABG pCO2 ABG pO2 ABG HCO3 ABG Total CO2 Antony Test Hemoglobin Oxyhemoglobin Carboxyhemoglobin Total Hemoglobin O2 Delivery Device Oxygen Liter Flow FiO2 % Sodium Potassium Chloride Carbon Dioxide Anion Gap BUN Creatinine Estimated GFR (MDRD) BUN/Creatinine Ratio Glucose Lactic Acid Calcium Total Bilirubin AST ALT Alkaline Phosphatase Total Protein Albumin Globulin Albumin/Globulin Ratio Procalcitonin Urine Color Yellow Urine Clarity Clear Urine pH 6.0 Ur Specific [place] 1.020 Urine Protein 2+ H Urine Glucose (UA) Negative Urine Ketones 1+ H Urine Blood 2+ H Urine Nitrite Positive H Urine Bilirubin 1+ H Urine Urobilinogen 1.0 H Ur Leukocyte Esterase 3+ H Urine Microscopic RBC 5-10 Urine Microscopic WBC 10-20 Ur Squamous Epith Cells 2-5 Urine Bacteria Trace Influ A Molecular Assay Influ B Molecular Assay RSV Antigen SARS CoV-2 RNA Rapid TY Imaging Imaging: EXAM: CHEST RADIOGRAPH FINDINGS: Lung volumes are decreased bilaterally causing accentuation to the interstitium. No consolidations, pleural effusion or pneumothorax. Cardiomediastinal silhouette and pulmonary vessels are within normal limits. Upper abdomen is unremarkable. No acute bony abnormality. IMPRESSION: 1. Low lung volumes without indication of acute cardiopulmonary disease. EXAM: CHEST CT WITHOUT CONTRAST 06/29/2025 FINDINGS: The lower neck is within normal limits. Major airways are patent. No pneumothorax or pleural fluid. Consolidative opacities in the lung bases; right greater than may represent pneumonia and/or atelectasis. Clinical correlation and short-term follow-up advised. Few nodules in the right middle lobe measuring up to 0.4 cm, unchanged. Mild/moderate cardiomegaly. No pericardial effusion. Ectasia of the descending thoracic aorta measuring 2.9 cm. Atherosclerosis in the aorta. Coronary calcifications. Enlarged pulmonary trunk measuring up to 3.6 cm suggestive of pulmonary arterial hypertension. No lymphadenopathy allowing for limitation by lack of IV contrast. Soft tissue structures are unremarkable. Cholecystectomy clips. Bilateral renal hypodensities some of which are cysts and others which are too small to characterize, unchanged. Right adrenal adenoma. Degenerative changes. Scoliosis. Moderate height loss of the superior endplate of T12 vertebral body, unchanged. IMPRESSION: - Consolidative opacities in the lung bases; right greater than may represent pneumonia and/or atelectasis. Clinical correlation and short-term follow-up advised. - Few nodules in the right middle lobe measuring up to 0.4 cm, unchanged. - Mild/moderate cardiomegaly. No pericardial effusion. - Ectasia of the descending thoracic aorta measuring 2.9 cm. Atherosclerosis in the aorta. Coronary calcifications. - Enlarged pulmonary trunk measuring up to 3.6 cm suggestive of pulmonary arterial hypertension. - Cholecystectomy clips. Bilateral renal hypodensities some of which are cysts and others which are too small to characterize, unchanged.. Review Statement Review Statement: I have independently reviewed and interpreted the labs/EKGs/imaging that were ordered by the ER provider. I have reviewed all outside records that are available currently in our EMR including imaging/notes/labs from previous visits. Plan Plan: 1. Sepsis in setting of UTI and possible pneumonia - blood cultures obtained, vanc and zosyn ordered, urine culture pending, procal mildly elevated at 0.3 - trend, gentle IV fluids 2. UTI - urine culture pending, covered with zosyn 3. Acute Hypoxic Respiratory Failure in setting of Covid-19 and possible pneumonia - wean oxygen as tolerated, nebs, steroids 4. Covid-19 - isolation, supportive measures, steroids, nebs, remdesivir loading dose today then daily tomorrow 5. Possible pneumonia - covering with vanc and zosyn due to meeting sepsis, suspect viral due to covid-19, sputum and mrsa ordered 6. HTN - hypotensive in ER, holding home medications 7. COPD - not on home O2, continue home medications DVT Prophylaxis: Lovenox Time Spent: Greater than 80 minutes spent with patient, 50% of the time spent with this patient was devoted to counseling and coordination of care. [facility] minutes spent discussing advance care planning. Disposition: Updated son, Benny on condition. Patient is DNR. Admit to: Med/Surg Inpatient DNR Discussed Plan of Care with Dr. Jhonny Sanchez. Medications Medication Orders: Medications Ordered Category Date Time Status Acetaminophen [Tylenol] Meds 06/29/25 11:26 Active 650 mg PO Q4H PRN Dexamethasone Sod Phosphate [Decadron] Meds 06/29/25 12:00 Active 6 mg IVP DAILY Enoxaparin Sodium [Lovenox] Meds 06/30/25 09:00 Active 40 mg SUBCUT DAILY Ipratropium/Albuterol Neb [Duoneb] Meds 06/29/25 14:00 Active 3 ml NEB RTQ4H Pharm Consult [Pharm Consult:Vanco IV Maintenance Meds 06/29/25 09:19 Pending Dosing] 1 each IV ONCE ONE Pharm Consult [Pharm Consult:Vanco IV Maintenance Meds 06/29/25 11:35 Pending Dosing] 1 each IV ONCE ONE Piperacillin Sodium/Tazobactam [Zosyn 3.375 gm] 3.375 Meds 06/29/25 15:00 Active gm 0.9 % Sodium Chloride [Sodium Chloride 100Ml] 100 ml IV Q6H Remdesivir [Veklury] 100 mg Meds 06/30/25 09:00 Ordered 0.9 % Sodium Chloride [Sodium Chloride 100Ml] 100 ml IV DAILY Remdesivir [Veklury] 200 mg Meds 06/29/25 12:10 Ordered 0.9 % Sodium Chloride [Sodium Chloride] 250 ml IV ONCE Sodium Chloride 0.9% [Sodium Chloride] 1,000 ml Meds 06/29/25 11:30 Active IV 75 mls/hr Vancomycin/Water For Inj (Peg) [Vancomycin 1 Gram/200 Meds 06/29/25 10:30 Active ml Premix] 2 gm in 400 ml IV ONCE Vancomycin/Water For Inj (Peg) [Vancomycin 1.5 Gram/300 Meds 06/29/25 12:30 Active ml Premix] 1.5 gm in 300 ml IV ONCE
[2025-06-29] MEDS: DECADRON IVP SCH (12:23)
[2025-06-29] MEDS ORDERED: VANCOMYCIN 1.5 GRAM/300 ML PREMIX 1.5 GM/300 ML BAG IV SCH (12:30)
[2025-06-29] MEDS: DUONEB NEB SCH (14:19)
[2025-06-29 14:23] VITALS: BMI 29.6
[2025-06-29] MEDS: VEKLURY 200 MG in SODIUM CHLORIDE 250 ML IV ONE (15:16)
[2025-06-29] MEDS: SODIUM CHLORIDE 1,000 ML IV SCH (15:20)
[2025-06-29] MEDS ORDERED: DUONEB NEB PRN (15:41)
[2025-06-29] MEDS ORDERED: IMODIUM PO PRN (15:41)
[2025-06-29] MEDS ORDERED: ZOFRAN TAB PO PRN (15:41)
[2025-06-29] MEDS ORDERED: DULCOLAX PO PRN (15:56)
[2025-06-29] MEDS ORDERED: ROBAXIN PO PRN (15:58)
[2025-06-29] MEDS: ZOSYN 3.375 GM 3.375 GM in SODIUM CHLORIDE 100ML 100 ML IV SCH (16:36)
[2025-06-29] MEDS: FLOMAX PO SCH (20:24)
[2025-06-30 05:33] LABS: IMMATURE GRANULOCYTE # (AUTO) 0.0 (0.0-1.0); IMMATURE GRANULOCYTE % (AUTO) 0.3 % (0.0-5.0); RDW COEFFICIENT OF VARIATION 12.9 % (11.6-14.8)
[2025-06-30 05:56] LABS: CREATININE 1.2 mg/dL (0.60-1.10)
[2025-06-30 07:41] LABS: INR 1.16 SI (0.0-3.9)
[2025-06-30] MEDS: VANCOMYCIN 1.5 GRAM/300 ML PREMIX 1.5 GM/300 ML BAG IV SCH (08:58)
[2025-06-30] MEDS: LOVENOX SUBCUT SCH (08:59)
[2025-06-30] MEDS: CELEXA PO SCH (09:00)
[2025-06-30] MEDS: ASPIRIN EC PO SCH (09:00)
[2025-06-30] MEDS: MICRO-K CAP PO SCH (09:01)
[2025-06-30] MEDS: VITAMIN D PO SCH (09:01)
[2025-06-30] MEDS: LIPITOR PO SCH (09:02)
[2025-06-30] MEDS: PEPCID PO SCH (09:02)
--- NOTE | 2025-06-30 09:51 | PCM.PROG ---
Date/Time Seen Date Seen by Provider: 06/30/25 Time Seen by Provider: 08:40 Provider Provider[facility] Chief Complaint Chief Complaint: ACUTE COVID RESP FAILURE, EHYPOXIA Subjective Subjective: Patient states he's feeling much better today. No n/v/d. States his breathing feels good. No chest pain. Per nursing he ate a decent breakfast and is drinking well. Objective Appearance: Positive No Apparent Distress and Alert and Oriented x3 Chest/Lungs: Positive Clear to Auscultation Bilaterally; Negative Rales, Rhonci or Wheezes Heart: Positive RRR GI/: Positive Soft, Nontender, Bowel Sounds Normal and No Distention Neurological: Positive Cranial Nerves Intact, Alert, Oriented and Other (+generalized weakness ) Vital Signs Vital Signs: Vital Signs: Last 24 Hours 06/29/25 10:23 06/29/25 11:32 06/29/25 12:08 Temperature 98.6 F Temperature Source Pulse Rate Respiratory Rate Blood Pressure Blood Pressure Mean Blood Pressure Left Arm Blood Pressure Location Blood Pressure Position O2 Sat by Pulse Oximetry Oxygen Delivery Method Oxygen Flow Rate 3 Height Weight Telemetry Type Remote Telemetry Telemetry Monitoring Started Irregular Telemetry Rate (Approximate) Telemetry Heart Rate 65 Telemetry SPO2 EKG NM Interval 0.19 EKG QRS Interval 0.07 Telemetry Strip Reading NSR 06/29/25 12:10 06/29/25 12:10 06/29/25 14:00 Temperature 96.9 F L 96.9 F L Temperature Source Temporal Artery Scan Temporal Artery Scan Pulse Rate 58 L 60 Respiratory Rate 14 16 18 Blood Pressure 115/58 L Blood Pressure Mean 77 Blood Pressure Left Arm 113/63 Blood Pressure Location Left Arm Blood Pressure Position Supine O2 Sat by Pulse Oximetry 98 95 Oxygen Delivery Method Nasal Cannula Room Air Nasal Cannula Oxygen Flow Rate 3 3 2 Height 5 ft 11 in Weight 96.3 kg Telemetry Type Telemetry Monitoring Irregular Telemetry Rate (Approximate) Telemetry Heart Rate Telemetry SPO2 EKG NM Interval EKG QRS Interval Telemetry Strip Reading 06/29/25 14:20 06/29/25 15:15 06/29/25 15:45 Temperature Temperature Source Pulse Rate Respiratory Rate Blood Pressure 114/62 112/64 Blood Pressure Mean 79 80 Blood Pressure Left Arm Blood Pressure Location Left Arm Left Arm Blood Pressure Position Supine O2 Sat by Pulse Oximetry 97 96 Oxygen Delivery Method Nasal Cannula Nasal Cannula Nasal Cannula Oxygen Flow Rate 3 2 2 Height Weight Telemetry Type Telemetry Monitoring Irregular Telemetry Rate (Approximate) Telemetry Heart Rate Telemetry SPO2 EKG NM Interval EKG QRS Interval Telemetry Strip Reading 06/29/25 16:25 06/29/25 18:13 06/29/25 19:00 Temperature 96.9 F L Temperature Source Temporal Artery Scan Pulse Rate 49 L Respiratory Rate 14 Blood Pressure 114/61 114/56 L Blood Pressure Mean 78 75 Blood Pressure Left Arm Blood Pressure Location Left Arm Right Arm Blood Pressure Position Supine O2 Sat by Pulse Oximetry 96 97 Oxygen Delivery Method Nasal Cannula Nasal Cannula Oxygen Flow Rate 2 2 Height Weight Telemetry Type Remote Telemetry Telemetry Monitoring Continues Irregular Telemetry Rate (Approximate) Telemetry Heart Rate 43 L Telemetry SPO2 97 EKG NM Interval 0.18 EKG QRS Interval 0.06 Telemetry Strip Reading SB 06/29/25 20:00 06/29/25 20:00 06/29/25 22:00 Temperature 97.0 F L Temperature Source Temporal Artery Scan Pulse Rate 45 L Respiratory Rate 14 Blood Pressure 128/64 Blood Pressure Mean 85 Blood Pressure Left Arm Blood Pressure Location Left Arm Blood Pressure Position Supine O2 Sat by Pulse Oximetry 97 Oxygen Delivery Method Nasal Cannula Nasal Cannula Nasal Cannula Oxygen Flow Rate 2 2 Height Weight Telemetry Type Telemetry Monitoring Irregular Telemetry Rate (Approximate) Telemetry Heart Rate Telemetry SPO2 EKG NM Interval EKG QRS Interval Telemetry Strip Reading 06/30/25 01:00 06/30/25 01:20 06/30/25 05:27 Temperature 96.2 F L 96.6 F L Temperature Source Temporal Artery Scan Temporal Artery Scan Pulse Rate 46 L 53 L Respiratory Rate 16 18 Blood Pressure 138/77 125/69 Blood Pressure Mean 97 87 Blood Pressure Left Arm Blood Pressure Location Left Arm Left Arm Blood Pressure Position Supine Supine O2 Sat by Pulse Oximetry 96 96 Oxygen Delivery Method Nasal Cannula Nasal Cannula Oxygen Flow Rate 2 2 Height Weight Telemetry Type Remote Telemetry Telemetry Monitoring Continues Irregular Telemetry Rate (Approximate) Telemetry Heart Rate 52 L Telemetry SPO2 98 EKG NM Interval 0.18 EKG QRS Interval 0.06 Telemetry Strip Reading SB 06/30/25 05:32 06/30/25 07:00 Temperature Temperature Source Pulse Rate Respiratory Rate Blood Pressure Blood Pressure Mean Blood Pressure Left Arm Blood Pressure Location Blood Pressure Position O2 Sat by Pulse Oximetry Oxygen Delivery Method Nasal Cannula Oxygen Flow Rate 2 Height Weight Telemetry Type Remote Telemetry Telemetry Monitoring Continues Irregular Telemetry Rate (Approximate) 50-60 BPM Telemetry Heart Rate 56 L Telemetry SPO2 EKG NM Interval 0.15 EKG QRS Interval 0.09 Telemetry Strip Reading SB Lab Results Lab Results: Lab Results: Last 24 Hours 06/30/25 06/29/25 06/29/25 05:21 11:02 09:47 WBC 10.50 H RBC 3.95 L Hgb 12.4 L Hct 38.2 L MCV 96.7 H MCH 31.4 H MCHC 32.5 RDW Coeff of Meryl 12.9 Plt Count 84 L Immature Gran % (Auto) 0.3 Neut % (Auto) 85.0 H Lymph % (Auto) 7.4 L Chambers % (Auto) 7.2 Eos % (Auto) 0.0 Baso % (Auto) 0.1 Neut # (Auto) 8.9 H Lymph # (Auto) 0.8 Chambers # (Auto) 0.8 Eos # (Auto) 0.0 Baso # (Auto) 0.0 Immature Gran # (Auto) 0.0 ESR PT 12.0 H INR 1.16 Puncture Site Lt rad Base Excess 6.5 H O2 Saturation 99.8 H ABG pH 7.52 H* ABG pCO2 36.0 ABG pO2 197.0 H ABG HCO3 29.4 H ABG Total CO2 30.5 H Antony Test Os Hemoglobin 1.5 Oxyhemoglobin 96.2 Carboxyhemoglobin 1.9 H Total Hemoglobin 13.2 O2 Delivery Device Non rebreather Oxygen Liter Flow 10.00 FiO2 % 60.0 Sodium 135.0 Potassium 3.80 Chloride 105.0 Carbon Dioxide 27.0 Anion Gap 6.80 BUN 26.0 H Creatinine 1.20 H Estimated GFR (MDRD) 58.00 BUN/Creatinine Ratio 21.66 Glucose 143.0 H Lactic Acid Calcium 8.00 L Total Bilirubin 2.40 H D AST 31.0 ALT 24.0 Alkaline Phosphatase 54.0 L Total Protein 5.40 L Albumin 2.80 L Globulin 2.60 Albumin/Globulin Ratio 1.07 Procalcitonin Urine Color Yellow Urine Clarity Clear Urine pH 6.0 Ur Specific [place] 1.020 Urine Protein 2+ H Urine Glucose (UA) Negative Urine Ketones 1+ H Urine Blood 2+ H Urine Nitrite Positive H Urine Bilirubin 1+ H Urine Urobilinogen 1.0 H Ur Leukocyte Esterase 3+ H Urine Microscopic RBC 5-10 Urine Microscopic WBC 10-20 Ur Squamous Epith Cells 2-5 Urine Bacteria Trace Influ A Molecular Assay Influ B Molecular Assay RSV Antigen SARS CoV-2 RNA Rapid TY 06/29/25 06/29/25 09:31 09:22 WBC RBC Hgb Hct MCV MCH MCHC RDW Coeff of Meryl Plt Count Immature Gran % (Auto) Neut % (Auto) Lymph % (Auto) Chambers % (Auto) Eos % (Auto) Baso % (Auto) Neut # (Auto) Lymph # (Auto) Chambers # (Auto) Eos # (Auto) Baso # (Auto) Immature Gran # (Auto) ESR 29 H PT 10.9 INR 1.05 Puncture Site Base Excess O2 Saturation ABG pH ABG pCO2 ABG pO2 ABG HCO3 ABG Total CO2 Antony Test Hemoglobin Oxyhemoglobin Carboxyhemoglobin Total Hemoglobin O2 Delivery Device Oxygen Liter Flow FiO2 % Sodium 133.0 L Potassium 3.90 Chloride 100.0 Carbon Dioxide 28.0 Anion Gap 8.90 BUN 21.0 H Creatinine 1.10 Estimated GFR (MDRD) 64.00 BUN/Creatinine Ratio 19.09 Glucose 189.0 H Lactic Acid 1.20 Calcium 8.30 L Total Bilirubin 3.90 H AST 37.0 ALT 29.0 Alkaline Phosphatase 75.0 Total Protein 6.00 L Albumin 3.40 L Globulin 2.60 Albumin/Globulin Ratio 1.30 Procalcitonin 0.30 H Urine Color Urine Clarity Urine pH Ur Specific [place] Urine Protein Urine Glucose (UA) Urine Ketones Urine Blood Urine Nitrite Urine Bilirubin Urine Urobilinogen Ur Leukocyte Esterase Urine Microscopic RBC Urine Microscopic WBC Ur Squamous Epith Cells Urine Bacteria Influ A Molecular Assay Negative by naat Influ B Molecular Assay Negative by naat RSV Antigen Negative by naat SARS CoV-2 RNA Rapid TY Positive H Additional Comments Additional Comments: I have independently reviewed and interpreted the labs/EKGs/imaging ordered during this hospital stay. I have reviewed outside records that are available in our EMR that pertain to medical stay including imaging/notes/labs from previous visits. Active Medications Active Medications: Medications Generic Name Dose Route Start Last Admin Trade Name Freq PRN Reason Stop Dose Admin Acetaminophen 650 mg 06/29/25 15:41 Acetaminophen 325 Mg Tablet PO Q6H PRN Mild Pain Albuterol/Ipratropium 3 ml 06/29/25 15:41 Ipratropium/Albuterol Vial.Neb NEB RTQ4H PRN Bronchospasm Aspirin 81 mg 06/30/25 09:00 06/30/25 09:00 Aspirin 81 Mg Tablet. PO 81 mg DAILY P[facility] Administration Atorvastatin Calcium 20 mg 06/30/25 09:00 06/30/25 09:02 Atorvastatin Calcium 20 Mg Tablet PO 20 mg DAILY [facility] Administration Bisacodyl 5 mg 06/29/25 15:56 Bisacodyl 5 Mg Tablet. PO DAILY PRN Constipation Cholecalciferol 2,000 unit 06/30/25 09:00 06/30/25 09:01 Cholecalciferol (Vitamin D3) 1,000 Unit (25 Mcg) Tablet PO 2,000 unit DAILY [facility] Administration Citalopram Hydrobromide 10 mg 06/30/25 09:00 06/30/25 09:00 Citalopram Hydrobromide 20 Mg Tablet PO 10 mg DAILY [facility] Administration Dexamethasone Sodium Phosphate 6 mg 06/29/25 12:00 06/30/25 09:00 Dexamethasone Sod Phos 10 Mg/Ml Inj IVP 6 mg DAILY [facility] Administration Enoxaparin Sodium 40 mg 06/30/25 09:00 06/30/25 08:59 Enoxaparin Sodium 40 Mg/0.4 Ml Syr SUBCUT 40 mg DAILY [facility] Administration Famotidine 20 mg 06/30/25 09:00 06/30/25 09:02 Famotidine 20 Mg Tablet PO 20 mg DAILY [facility] Administration Remdesivir 100 mg/ Sodium 100 mls @ 200 mls/hr 06/30/25 11:00 Chloride IV 07/03/25 11:29 DAILY@1100 [facility] VANCOMYCIN/WATER FOR INJ (PEG) 1.5 gm in 300 mls @ 200 mls/hr 06/30/25 09:00 06/30/25 08:58 Vancomycin 1.5 Gram/300 Ml Premix IV 07/03/25 08:59 200 mls/hr DAILY [facility] Administration Piperacillin Sod/Tazobactam 100 mls @ 200 mls/hr 06/30/25 12:00 Sod 4.5 gm/ Sodium Chloride IV 07/03/25 11:59 Q6HR [facility] Loperamide HCl 2 mg 06/29/25 15:41 Loperamide Hcl 2 Mg Tablet PO Q1HR PRN Diarrhea Methocarbamol 750 mg 06/29/25 15:58 Methocarbamol 500 Mg Tablet PO Q8H PRN MODERATE PAIN Ondansetron HCl 4 mg 06/29/25 15:41 Ondansetron Hcl 4 Mg Tablet PO Q6H PRN Nausea / Vomiting Potassium Chloride 10 meq 06/30/25 09:00 06/30/25 09:01 Potassium Chloride 10 Meq Capsule.Er PO 10 meq DAILY [facility] Administration Tamsulosin HCl 0.4 mg 06/29/25 21:00 06/29/25 20:24 Tamsulosin Hcl 0.4 Mg Cap.Er.24h PO 0.4 mg BEDTIME [facility] Administration Plan Plan: 1. Sepsis in setting of UTI and possible pneumonia - blood cultures obtained, vanc and zosyn ordered, will deescalate, urine culture pending, procal mildly elevated - trend. Fluids stopped today. 2. UTI - urine culture pending, covered with zosyn, will deescalate 3. Acute Hypoxic Respiratory Failure in setting of Covid-19 and possible pneumonia - wean oxygen as tolerated, nebs, steroids 4. Covid-19 - isolation, supportive measures, steroids, nebs, remdesivir. 5. Possible pneumonia - covering with vanc and zosyn due to meeting sepsis, deescalate today, suspect viral due to covid-19, sputum and mrsa ordered 6. HTN - hypotensive in ER, holding home medications, BP improved today 7. COPD - not on home O2, continue home medications, try to wean to RA today DVT Prophylaxis: Lovenox Review Statement Review Statement: I have personally discussed and reviewed the patient's visit/currently labs/imaging/decision making with Dr. Sanchez, my supervising attending. Greater that 50 minutes spent with patient, 50% of the time spent with this patient was devoted to counseling and coordination of care.
[2025-06-30] MEDS ORDERED: ZOSYN 4.5 GM 4.5 GM in SODIUM CHLORIDE 100ML 100 ML IV SCH (12:00)
[2025-06-30] MEDS: VEKLURY 100 MG in SODIUM CHLORIDE 100ML 100 ML IV SCH (12:05)
[2025-06-30] MEDS: ZITHROMAX PO SCH (12:05)
[2025-06-30] MEDS: ROCEPHIN 1 GM/50 ML D5W 1 GM/50 ML BAG IV SCH (14:29)
[2025-07-01 05:47] LABS: IMMATURE GRANULOCYTE # (AUTO) 0.0 (0.0-1.0); IMMATURE GRANULOCYTE % (AUTO) 0.3 % (0.0-5.0); RDW COEFFICIENT OF VARIATION 12.9 % (11.6-14.8)
[2025-07-01 05:57] LABS: INR 1.22 SI (0.0-3.9)
[2025-07-01 06:00] LABS: CREATININE 1.01 mg/dL (0.60-1.10)
[2025-07-01] MEDS: LEVAQUIN PO SCH (11:39)
--- NOTE | 2025-07-01 12:13 | DCSUM ---
Admission Date Admission Date: 06/29/25 Discharge Date Discharge Date: 07/01/25 Admission Diagnosis Admission Diagnosis: acute covid respiratory failure Discharge Diagnosis Discharge Diagnosis: acute covid respiratory failure Hospital Provider Hospital Provider: [facility] Primary [facility] Physician Primary Care Physician: THONY SANTAMARIA APRN Summary of History and Physical Summary of History and Physical: 84 yo male with pmh of dementia, HTN, CAD, and COPD presented to the ER from [facility] for shortness of breath. He had a low oxygen saturation and was noted to be COVID-19 positive as well as having a UTI and admitted to the hosptialist service. Hospital Course Subjective: He received IV antibiotics, Remdesivir, and was weaned off oxygen. His UA culture grew Serratia and he is being discharged home with oral Levaquin to complete his antibiotics. His home hypertensive meds were held in the setting of hypotension and slowly resumed. Appearance: Pleasant HEENT: MMM CVS: No Murmur (harsh systolic murmur) Vital Signs: Most Recent Vital Signs Temperature 97.2 F L 07/01/25 10:29 Temperature Source Temporal Artery Scan 07/01/25 10:29 Temperature Source Oral 06/29/25 09:22 Pulse Rate 71 07/01/25 10:29 Respiratory Rate 16 07/01/25 10:29 Blood Pressure 153/89 H 07/01/25 10:29 Blood Pressure Mean 110 07/01/25 10:29 Blood Pressure Left Arm 113/63 06/29/25 12:10 Blood Pressure Location Left Arm 07/01/25 10:29 Blood Pressure Position Sitting 07/01/25 10:29 O2 Sat by Pulse Oximetry 94 L 07/01/25 10:29 Oxygen Delivery Method Room Air 07/01/25 10:29 Oxygen Flow Rate 2 06/30/25 10:00 Height 5 ft 11 in 06/29/25 12:10 Weight 96.3 kg 06/29/25 12:10 Telemetry Type Remote Telemetry 07/01/25 07:00 Telemetry Monitoring Continues 07/01/25 07:00 Irregular Telemetry Rate (Approximate) 60-70 BPM 07/01/25 07:00 Telemetry Heart Rate 67 07/01/25 07:00 Telemetry SPO2 94 07/01/25 01:00 EKG MS Interval 0.19 07/01/25 07:00 EKG QRS Interval 0.07 07/01/25 07:00 Telemetry Strip Reading SR 07/01/25 07:00 Lab Results Last 24 Hours: 07/01/25 06/29/25 05:15 09:31 WBC 12.94 H RBC 4.03 L Hgb 12.6 L Hct 38.3 L MCV 95.0 H MCH 31.3 H MCHC 32.9 RDW Coeff of Meryl 12.9 Plt Count 104 L Immature Gran % (Auto) 0.3 Neut % (Auto) 83.7 H Lymph % (Auto) 10.2 [place] % (Auto) 5.8 Eos % (Auto) 0.0 Baso % (Auto) 0.0 Neut # (Auto) 10.8 H Lymph # (Auto) 1.3 [place]y # (Auto) 0.8 Eos # (Auto) 0.0 Baso # (Auto) 0.0 Immature Gran # (Auto) 0.0 PT 12.5 H INR 1.22 Sodium 136.8 Potassium 4.14 Chloride 102.0 Carbon Dioxide 26.8 Anion Gap 12.14 BUN 27.9 H Creatinine 1.01 Estimated GFR (MDRD) 70.00 BUN/Creatinine Ratio 27.62 Glucose 136.4 H Calcium 8.05 L Total Bilirubin 1.52 H AST 39.1 ALT 31.6 Alkaline Phosphatase 67.4 C-Reactive Prot, Quant 111 H Total Protein 5.37 L Albumin 2.91 L Globulin 2.46 Albumin/Globulin Ratio 1.18 Discharge Instructions Discharge Planning: Discharge Planning > 40 minutes Discharge Medications: Home Medications Acetaminophen (Acetaminophen 325 Mg Tablet) 650 mg PO Q6H PRN PRN Reason: Mild Pain Albuterol/Ipratropium (Ipratropium/Albuterol Vial.Neb) 3 ml NEB RTQ4H PRN PRN Reason: Bronchospasm Aspirin (Aspirin 81 Mg Tablet.) 81 mg PO DAILY [facility] Last Admin: 07/01/25 09:12 Dose: 81 mg Atorvastatin Calcium (Atorvastatin Calcium 20 Mg Tablet) 20 mg PO DAILY [facility] Last Admin: 07/01/25 09:13 Dose: 20 mg Azithromycin (Azithromycin 250 Mg Tablet) 500 mg PO DAILY [facility] Stop: 07/02/25 10:59 Last Admin: 07/01/25 09:13 Dose: 500 mg Bisacodyl (Bisacodyl 5 Mg Tablet.Dr) 5 mg PO DAILY PRN PRN Reason: Constipation Cholecalciferol (Cholecalciferol (Vitamin D3) 1,000 Unit (25 Mcg) Tablet) 2,000 unit PO DAILY [facility] Last Admin: 07/01/25 09:13 Dose: 2,000 unit Citalopram Hydrobromide (Citalopram Hydrobromide 20 Mg Tablet) 10 mg PO DAILY [facility] Last Admin: 07/01/25 09:13 Dose: 10 mg Dexamethasone Sodium Phosphate (Dexamethasone Sod Phos 10 Mg/Ml Inj) 6 mg IVP DAILY [facility] Last Admin: 07/01/25 09:12 Dose: 6 mg Enoxaparin Sodium (Enoxaparin Sodium 40 Mg/0.4 Ml Syr) 40 mg SUBCUT DAILY [facility] Last Admin: 07/01/25 09:12 Dose: 40 mg Famotidine (Famotidine 20 Mg Tablet) 20 mg PO DAILY [facility] Last Admin: 07/01/25 09:13 Dose: 20 mg Remdesivir 100 mg/ Sodium (Chloride) 100 mls @ 200 mls/hr IV DAILY@1100 [facility] Stop: 07/03/25 11:29 Last Admin: 07/01/25 10:55 Dose: 200 mls/hr CEFTRIAXONE/D5W 1 GM PREMIX (Rocephin 1 Gm/50 Ml D5w) 1 gm in 50 mls @ 100 mls/hr IV DAILY [facility] Stop: 07/03/25 13:59 Last Admin: 07/01/25 09:13 Dose: 100 mls/hr Loperamide HCl (Loperamide Hcl 2 Mg Tablet) 2 mg PO Q1HR PRN PRN Reason: Diarrhea Methocarbamol (Methocarbamol 500 Mg Tablet) 750 mg PO Q8H PRN PRN Reason: MODERATE PAIN Ondansetron HCl (Ondansetron Hcl 4 Mg Tablet) 4 mg PO Q6H PRN PRN Reason: Nausea / Vomiting Potassium Chloride (Potassium Chloride 10 Meq Capsule.Er) 10 meq PO DAILY [facility] Last Admin: 07/01/25 09:12 Dose: 10 meq Tamsulosin HCl (Tamsulosin Hcl 0.4 Mg Cap.Er.24h) 0.4 mg PO BEDTIME [facility] Last Admin: 06/30/25 20:18 Dose: 0.4 mg Discharge Plan Discharge Discharge Orders: Discharge Patient (ONCE); Ordered 07/01/25 Ordered By: MELISSA VILLALBA Instructions: Hypoxia (GEN) Prescriptions: New azithromycin 250 mg Tablet 500 mg PO DAILY Qty: 3 0RF levofloxacin 250 mg tablet 250 mg PO DAILY Qty: 7 0RF Continued famotidine 20 mg tablet 20 mg PO DAILY lisinopril 20 mg tablet 20 mg PO DAILY methocarbamol 750 mg tablet 750 mg PO Q8H PRN (Reason: muscle spasm) bisacodyl 5 mg tablet 5 mg PO DAILY PRN (Reason: constipation) aspirin [Adult Aspirin Regimen] 81 mg tablet,delayed release (DR/EC) 81 mg PO DAILY atorvastatin 20 mg tablet 20 mg PO DAILY acetaminophen 325 mg tablet 650 mg PO Q6H PRN (Reason: pain) loperamide [Anti-Diarrheal (loperamide)] 2 mg capsule 2 mg PO Q1HR PRN (Reason: diarrhea) tamsulosin 0.4 mg capsule 0.4 mg PO BEDTIME ondansetron HCl 4 mg tablet 4 mg PO Q6H PRN (Reason: nausea) ipratropium-albuterol 0.5 mg-3 mg(2.5 mg base)/3 mL Solution For Nebulization 3 ml NEB RTQ4H PRN (Reason: SOB) Qty: 90 0RF furosemide 20 mg tablet 40 mg PO QAM potassium chloride 10 mEq tablet,ER particles/crystals 10 meq PO DAILY cholecalciferol (vitamin D3) 25 mcg (1,000 unit) capsule 50 mcg PO DAILY citalopram 10 mg tablet 10 mg PO DAILY Did you review [place] [employer] for ALL controlled substances?: Not Applicable Discussed opioids are addictive and Narcan is available by prescription or from pharmacy.: Yes Condition: Stable
[2025-07-01 14:29] VITALS: BP 146/70; PULSE 75; RESP 20; TEMP 97
== END 2025-07-01 16:55 | DRG 177 ==
LOC: ED 09:07 → MEDSURG B 11:29
PROVIDERS: ADMIT Hospitalist; ATTEND Physician Assistant Medical